=== PATIENT | female | born 1980 | race Caucasian/White ===

== ENCOUNTER 2016-04-04 09:39 | Outpatient (CLI) | payer OTHER, MEDICAID ==
[2016-04-04] MEDS ORDERED: SINCALIDE IV ONE (10:58)
[2016-04-04] MEDS ORDERED: SODIUM CHLORIDE 0.9% IV ONE (10:58)
== END 2016-04-04 09:40 | disposition home or self-care (01) ==
DX: R10.11 Right upper quadrant pain (principal)
CPT/HCPCS: 78227; A9537

== ENCOUNTER 2016-04-14 05:57 | Day surgery (SDC) | payer OTHER, MEDICAID ==
[2016-04-14] MEDS ORDERED: LACTATED RINGERS 1,000 ML IV ONE ×3 (07:08→09:30)
[2016-04-14] MEDS ORDERED: PROPOFOL 200 MG/20 ML VIAL IVP ONE (07:45)
[2016-04-14] MEDS ORDERED: PHENYLEPHRINE 50 MG/5 ML VIAL IV ONE (07:45)
[2016-04-14] MEDS ORDERED: DEXAMETHASONE 4 MG/ML VIAL IVP ONE (07:45)
[2016-04-14] MEDS ORDERED: LIDOCAINE-PF 2% 10 ML AMP SUBQ ONE (07:45)
[2016-04-14] MEDS ORDERED: SUCCINYLCHOLINE 200 MG/10 ML VIAL IVP ONE (07:45)
[2016-04-14] MEDS ORDERED: ONDANSETRON 4 MG/2 ML VIAL IVP ONE (07:45)
[2016-04-14] MEDS ORDERED: fentaNYL 100 MCG/2 ML VIAL IVP ONE (07:45)
[2016-04-14] MEDS ORDERED: GLYCOPYRROLATE 1 MG/5 ML VIAL IVP ONE (07:45)
[2016-04-14] MEDS ORDERED: NEOSTIGMINE 1 MG/1 ML 10 ML MDV IVP ONE (07:45)
[2016-04-14] MEDS ORDERED: MIDAZOLAM 2 MG/2 ML VIAL IVP ONE (07:45)
[2016-04-14] MEDS ORDERED: ROCURONIUM 50 MG/5 ML VIAL IVP ONE (07:45)
[2016-04-14] MEDS ORDERED: LIDOCAINE 1%-EPI 1:100000 20 ML MDV SUBQ ONE (07:51)
[2016-04-14] MEDS ORDERED: BUPIVACAINE 0.25%-EPI 1:200000 PF 30 ML VIAL SUBQ ONE (07:51)
[2016-04-14] MEDS: fentaNYL 100 MCG/2 ML VIAL ONE ×3 (09:02→09:24)
[2016-04-14] MEDS ORDERED: HYDROmorphone 1 MG/ML SYRINGE ONE (09:10)
[2016-04-14] MEDS ORDERED: oxyCOD/ACETAMIN 5 MG/325 MG TABLET PO ONE ×2 (09:56→10:24)
[2016-04-14] MEDS ORDERED: ONDANSETRON 4 MG/2 ML VIAL ONE (10:42)
== END 2016-04-14 05:58 | disposition home or self-care (01) ==
PROC: 0FT44ZZ Resection of Gallbladder, Percutaneous Endoscopic Approach (ICD-10-PCS; principal; 2016-04-14 07:30)
DX: K82.4 Cholesterolosis of gallbladder (principal); K81.1 Chronic cholecystitis; Z88.5 Allergy status to narcotic agent; F17.200 Nicotine dependence, unspecified, uncomplicated; F32.9 Major depressive disorder, single episode, unspecified
CPT/HCPCS: 47562; 81025; A9270; J7120

== ENCOUNTER 2016-05-29 15:24 | Emergency (ER) | payer OTHER, MEDICAID | END 2016-05-29 16:32 | disposition home or self-care (01) | DX: S61.200A Unspecified open wound of right index finger without damage to nail, initial encounter (principal); W26.0XXA Contact with knife, initial encounter; Y93.G1 Activity, food preparation and clean up; Y99.0 Civilian activity done for income or pay; I10 Essential (primary) hypertension; J45.909 Unspecified asthma, uncomplicated; K21.9 Gastro-esophageal reflux disease without esophagitis ==

== ENCOUNTER 2016-06-03 20:28 | Emergency (ER) | payer OTHER, MEDICAID ==
[2016-06-03 21:00] LABS: UA w/ MICROSCOPIC CHARGE YES
[2016-06-03 21:01] LABS: BILIRUBIN,URINE NEGATIVE (NEGATIVE)
[2016-06-03 21:07] LABS: WBC,URINE 0-3 /HPF (0-5)
[2016-06-03 21:08] LABS: UR CULTURE IF IND INDICATED
[2016-06-03] MEDS ORDERED: ONDANSETRON ODT 4 MG TABLET ONE (21:16)
[2016-06-03] MEDS ORDERED: KETOROLAC 60 MG/2 ML VIAL ONE (21:17)
[2016-06-03] MEDS: ONDANSETRON ODT 4 MG TABLET TL STA (21:19)
[2016-06-03] MEDS: KETOROLAC 60 MG/2 ML VIAL IM STA (21:19)
--- NOTE | 2016-06-03 21:45 | ED Physician Documentation ---
PD HPI FEMALE - Stated complaint Stated Complaint: FEMALE - Chief complaint Chief Complaint: Abd Pain - History obtained from History obtained from: Patient - History of Present Illness Timing - onset: How many hours ago (2) Timing - duration: Hours (2) Timing - details: Abrupt onset Pain level max: 10 Pain level max: 10 Associated symptoms: Pelvic pain. No: Fever, Chest/shoulder pain, Abdominal pain, Back pain, Vaginal pain, Vaginal bleeding, Vaginal discharge, Genital sore /lesion, Dysuria Contributing factors: IUD. No: Similar symptoms before: Has not had sx before Recently seen: Not recently seen - Additional information Additional information: Patient states that she would like her IUD removed as she feels this is causing her pain Review of Systems Constitutional: denies: Fever, Chills Nose: denies: Rhinorrhea / runny nose, Congestion Respiratory: denies: Cough GI: reports: Vomiting (Patient states she thew up secondary to pain). 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 - Present Medications Home Medications: Ambulatory Orders Medication Instructions Recorded Confirmed Bupropion HCl [Wellbutrin] 100 mg ORAL BID 11/09/13 06/03/16 Fexofenadine [Sofia] 180 mg ORAL DAILY 11/09/13 06/03/16 Valacyclovir HCl [Valtrex] 500 mg ORAL DAILY 11/09/13 06/03/16 busPIRone [Buspar] 10 mg PO TID 04/08/14 06/03/16 Omeprazole 30 mg PO DAILY 01/26/15 06/03/16 Ondansetron Odt [Zofran] 4 mg TL Q6H PRN #10 tablet 06/03/16 Oxycodone HCl/Acetaminophen 1 - 2 each PO Q6H PRN #10 tablet 06/03/16 [Percocet 5-325 mg Tablet] - Allergies Allergies/Adverse Reactions: Allergies Allergy/AdvReac Type Severity Reaction Status Date / Time acetaminophen [From Vicodin] Allergy Itching Verified 06/03/16 20:38 hydrocodone bitartrate * Allergy Itching Verified 06/03/16 20:38 [From Vicodin] tramadol Allergy Itching Verified 06/03/16 20:38 - Social History Does the pt smoke?: No Smoking Status: Never smoker Does the pt drink ETOH?: Yes Does the pt have substance abuse?: No - Immunizations Immunizations are current?: No Immunizations: TDAP current <10years - POLST Patient has POLST: No PD ED PE NORMAL - Vitals Vital signs reviewed: Yes - General General: Alert and oriented X 3, No acute distress, Well developed/nourished - HEENT HEENT: Moist mucous membranes - Neck Neck: Supple, no meningeal sign - Cardiac Cardiac: RRR, Strong equal pulses - Respiratory Respiratory: No respiratory distress, Clear bilaterally - Abdomen Abdomen: Soft, Non tender, Non distended - Female Female : 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 Cervix visible. No acute abnormalities.) - Back Back: No spinal TTP - Derm Derm: Warm and dry, No rash - Neuro Neuro: Alert and oriented X 3 - Psych Psych: Normal mood, Normal affect Results - Vitals Vitals: Vital Signs - 24 hr 06/03/16 06/03/16 06/03/16 20:34 22:28 23:41 Temperature 36.8 C Heart Rate 106 H 83 117 H Respiratory 24 19 18 Rate Blood Pressure 159/113 H 120/69 138/85 H O2 Saturation 96 98 100 Oxygen O2 Source Room air - Labs Labs: Laboratory Tests 06/03/16 20:46 Urine Color DARK YELLOW Urine Clarity CLEAR Urine pH 5.0 Ur Specific [place] 1.025 Urine Protein TRACE Urine Glucose (UA) NEGATIVE Urine Ketones TRACE Urine Occult Blood NEGATIVE Urine Nitrite POSITIVE H Urine Bilirubin NEGATIVE Urine Urobilinogen 1 (NORMAL) Ur Leukocyte Esterase NEGATIVE Urine RBC None Seen Urine WBC 0-3 Ur Squamous Epith Cells RARE Squamous Urine Bacteria None Seen Urine Casts 0-2 Hyaline Casts Ur Microscopic Review INDICATED Urine Culture Comments INDICATED - Rads (name of study) pelvic US Radiology: Prelim report reviewed, EMP read contemporaneously, See rad report ( IUD in appropriate position. Unremarkable premenopausal sonographic appearance of the ovaries. ) PD MEDICAL DECISION MAKING - ED course Complexity details: reviewed results, re-evaluated patient, considered differential, d/w patient, d/w family ED course: Patient is a 35-year-old female who presents to the emergency department with pelvic cramping and pain. Pain improved here with Toradol and Percocet. Was unable to visualize the IUD string on pelvic exam. Cervix was well visualized. Therefore I discussed the case with Dr. Mckeon and obtained an ultrasound for placement. Discussed with Dr. Mckeon, gynecology, and will follow up in the office. Patient counseled regarding signs and symptoms for which I believe and urgent re-evaluation would be necessary. Patient with good understanding of and agreement to plan and is comfortable going home at this time This document was made in part using voice recognition software. While efforts are made to proofread this document, sound alike and grammatical errors may occur. Patient does have nitrites on urinalysis, but no bacteria. Will hold off on treating this at this time. Patient denies any change in sexual partners. Pain well controlled. Departure - Departure Disposition: 01 Home, Self Care Clinical Impression: Pelvic pain Condition: Good Instructions: ED Pelvic Pain [facility] Follow-Up: Agnieszka Mckeon DO [Provider Admit Priv/Credential] - Within 3 Days Prescriptions: Oxycodone HCl/Acetaminophen [Percocet 5-325 mg Tablet] 1 - 2 each PO Q6H PRN # 10 tablet PRN Reason: pain Ondansetron Odt [Zofran] 4 mg TL Q6H PRN #10 tablet PRN Reason: Nausea / Vomiting Comments: Return if you worsen. The cause of your symptoms is unclear. Follow-up with Dr. Mckeon for further evaluation and care. Do not drink alcohol or drive while on narcotic pain medicine. Note that many narcotic pain relievers also contain tylenol/acetaminophen. Please ensure that your total dose of acetaminophen from all sources does not exceed 3 grams (3000mg) per day. You may constipated on this medication, take a stool softener such as "Colace" twice a day while you are on it. Also recommend a xukq-qdk-xnfolam laxative such as senna or MiraLAX any day that you do not have a bowel movement. If you received narcotic pain medication in the emergency department, do not drive or operate machinery for the next 24 hours. Discharge Date/Time: 06/03/16 23:48
[2016-06-03] MEDS ORDERED: HYDROmorphone 1 MG/ML SYRINGE ONE (21:50)
[2016-06-03] MEDS: HYDROmorphone 1 MG/ML SYRINGE IM STA (21:52)
[2016-06-03] MEDS ORDERED: oxyCOD/ACETAMIN 5 MG/325 MG TABLET PO ONE (23:37)
[2016-06-03] MEDS: oxyCOD/ACETAMIN 5 MG/325 MG TABLET PO STA (23:39)
[2016-06-03 23:42] VITALS: BP 138/85
--- NOTE | 2016-06-03 23:46 | Ultrasound Preliminary Report ---
Exam: US Pelvic w/Transvaginal IMPRESSION: 1. IUD in appropriate position. 2. Unremarkable premenopausal sonographic appearance of the ovaries. [facility]
--- NOTE | 2016-06-03 23:49 | Ultrasound Report ---
EXAM: PELVIC ULTRASOUND EXAM DATE: 06/03/2016 11:18 PM. CLINICAL HISTORY: Pelvic pain. Possible IUD malposition. COMPARISON: None. TECHNIQUE: Realtime transabdominal pelvic scan performed to identify the uterus and adnexa and as an overview of other pelvic structures, followed by transvaginal scan to provide greater detail of the u terus and adnexa, with static image documentation. FINDINGS: Uterus: Anteverted position. 8.8 x 3.8 x 5.0 cm, volume 89 cc. Homogeneous myometrial echotexture. Endometrium: 3 mm. IUD centrally positioned in the endometrial canal with the arms at the fundus. Cervix: Unremarkable. Right Ovary: 3.4 x 2.7 x 3.1 cm, volume 15.0 cc. Normal echotexture. Blood flow is present. Contains normal follicles, including a 1.8 cm dominant follicle. Left Ovary: 2.4 x 1.5 x 1.6 cm, volume 2.9 cc. Normal echotexture. Blood flow is present. Contains no rmal follicles. Free Fluid: None. Other: None. IMPRESSION: 1. IUD in appropriate position. 2. Unremarkable premenopausal sonographic appearance of the ovaries. [facility] Referring Provider Line: [phone]
== END 2016-06-03 23:48 | disposition home or self-care (01) ==
LOC: ED 20:28
DX: R10.2 Pelvic and perineal pain (principal); Z97.5 Presence of (intrauterine) contraceptive device; I10 Essential (primary) hypertension; J45.909 Unspecified asthma, uncomplicated; K21.9 Gastro-esophageal reflux disease without esophagitis
CPT/HCPCS: 76830; 76856; 81001; 81003; 81025; 87086; 96372; 99283; 99284

== ENCOUNTER 2016-06-14 10:27 | Day surgery (SDC) | payer OTHER, MEDICAID ==
[2016-06-14] MEDS ORDERED: LACTATED RINGERS 1,000 ML IV ONE (10:53)
[2016-06-14] MEDS ORDERED: SCOPOLAMINE PATCH TOP ONE (12:02)
[2016-06-14] MEDS ORDERED: PROPOFOL 200 MG/20 ML VIAL IVP ONE (12:30)
[2016-06-14] MEDS ORDERED: ONDANSETRON 4 MG/2 ML VIAL IVP ONE (12:30)
[2016-06-14] MEDS ORDERED: fentaNYL 100 MCG/2 ML VIAL IVP ONE (12:30)
[2016-06-14] MEDS ORDERED: DEXAMETHASONE 4 MG/ML VIAL IVP ONE (12:30)
[2016-06-14] MEDS ORDERED: MIDAZOLAM 2 MG/2 ML VIAL IVP ONE (12:30)
[2016-06-14] MEDS ORDERED: LIDOCAINE-PF 2% 10 ML AMP SUBQ ONE (12:30)
[2016-06-14] MEDS ORDERED: fentaNYL 100 MCG/2 ML VIAL ONE (12:51)
== END 2016-06-14 10:28 | disposition home or self-care (01) ==
PROC: 0UPD7HZ Removal of Contraceptive Device from Uterus and Cervix, Via Natural or Artificial Opening (ICD-10-PCS; principal; 2016-06-14 11:30)
DX: Z30.432 Encounter for removal of intrauterine contraceptive device (principal); I10 Essential (primary) hypertension; F32.9 Major depressive disorder, single episode, unspecified; F41.9 Anxiety disorder, unspecified; J45.990 Exercise induced bronchospasm; Z87.891 Personal history of nicotine dependence; Z88.5 Allergy status to narcotic agent; Z90.49 Acquired absence of other specified parts of digestive tract
CPT/HCPCS: 58301; 81025; J3490; J7120

== ENCOUNTER 2016-10-27 13:00 | Outpatient (CLI) | payer OTHER, MEDICAID ==
[2016-10-27 19:04] LABS: BILIRUBIN,URINE NEGATIVE (NEGATIVE)
[2016-10-27 19:24] LABS: UR CULTURE IF IND NOT INDICATED; WBC,URINE 0-3 /HPF (0-5)
== END 2016-10-27 13:01 | disposition home or self-care (01) ==
LOC: LAB.N 13:00
PROVIDERS: ATTEND Family Medicine
DX: N39.0 Urinary tract infection, site not specified (principal)
CPT/HCPCS: 81001; 87086

== ENCOUNTER 2017-01-05 12:29 | Emergency (ER) | payer OTHER, MEDICAID ==
[2017-01-05 12:41] VITALS: BP 157/96
[2017-01-05] MEDS ORDERED: ONDANSETRON ODT 4 MG TABLET TL STA (14:10)
--- NOTE | 2017-01-05 14:16 | ED Physician Documentation ---
History of Present Illness - Stated complaint Stated Complaint: WEAKNESS,DIZZINESS,BLURRED VISION - Chief complaint Chief Complaint: General - History obtained from History obtained from: Patient, Friend - History of Present Illness Timing: How many weeks ago (1) Pain level max: 4 Pain level now: 2 Improved by: rest Worsened by: walking - Additonal information Additional information: Patient is a 36-year-old female presents to the emergency department with weakness fatigue, sore throat, subjective fevers, body aches, nausea for the past week. States her boyfriend also has mononucleosis. Denies any vomiting. no chance of . intermittent abdominal cramps Review of Systems Ten Systems: 10 systems reviewed and negative Constitutional: reports: Myalgias Nose: denies: Rhinorrhea / runny nose, Congestion GI: reports: Nausea. 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 HEENT:  Derm: Other - Present Medications Home Medications: Ambulatory Orders Medication Instructions Recorded Confirmed Bupropion HCl [Wellbutrin] 100 mg ORAL BID 11/09/13 06/14/16 Fexofenadine [Sofia] 180 mg ORAL DAILY 11/09/13 06/14/16 Valacyclovir HCl [Valtrex] 500 mg ORAL DAILY 11/09/13 06/14/16 busPIRone [Buspar] 10 mg PO TID 04/08/14 06/14/16 Omeprazole 30 mg PO DAILY 01/26/15 06/14/16 Ondansetron Odt [Zofran] 4 mg TL Q6H PRN #10 tablet 06/03/16 06/14/16 Oxycodone HCl/Acetaminophen 1 - 2 each PO Q6H PRN #10 tablet 06/03/16 06/14/16 [Percocet 5-325 mg Tablet] Albuterol 1 puffs INH ONCE 06/09/16 06/14/16 Ondansetron Odt [Zofran] 4 mg TL Q6H PRN #10 tablet 01/05/17 - Allergies Allergies/Adverse Reactions: Allergies Allergy/AdvReac Type Severity Reaction Status Date / Time hydrocodone bitartrate * Allergy Itching Verified 01/05/17 12:35 [From Vicodin] tramadol Allergy Itching Verified 01/05/17 12:35 - Social History Does the pt smoke?: No Smoking Status: Never smoker Does the pt drink ETOH?: Yes Does the pt have substance abuse?: No - Immunizations Immunizations are current?: No Immunizations: TDAP current <10years - POLST Patient has POLST: No PD ED PE NORMAL - Vitals Vital signs reviewed: Yes (O2 sat is 97 on RA not 74) - General General: Alert and oriented X 3, No acute distress - HEENT HEENT: Moist mucous membranes - Neck Neck: Supple, no meningeal sign - Cardiac Cardiac: RRR - Respiratory Respiratory: No respiratory distress, Clear bilaterally - Abdomen Abdomen: Normal bowel sounds, Soft, Non tender, Non distended, No organomegaly - Back Back: No CVA TTP - Derm Derm: Warm and dry, No rash - Neuro Neuro: Alert and oriented X 3 - Psych Psych: Normal mood, Normal affect Results - Vitals Vitals: Vital Signs - 24 hr 01/05/17 01/05/17 12:33 14:14 Temperature 36 C L Heart Rate 81 Respiratory 20 Rate Blood Pressure 157/96 H O2 Saturation 74 L 97 Oxygen O2 Source Room air PD MEDICAL DECISION MAKING - ED course Complexity details: considered differential, d/w patient, d/w family ED course: Patient is a 36-year-old female who presents to the emergency department with symptoms consistent with mononucleosis. Her boyfriend has been diagnosed with same. No organomegaly on exam. She is well-appearing, nontoxic. Afebrile. Will write a note for work as well as Zofran for home. Patient is on control and the possibility of . Patient declines any blood work or further testing at this time. Patient counseled regarding signs and symptoms for which I believe and urgent re-evaluation would be necessary. Patient with good understanding of and agreement to plan and is comfortable going home at this time This document was made in part using voice recognition software. While efforts are made to proofread this document, sound alike and grammatical errors may occur. Departure - Departure Disposition: 01 Home, Self Care Clinical Impression: Mononucleosis Condition: Good Instructions: ED Mononucleosis Follow-Up: Jere Multani PA-C [Primary Care Provider] - Within 1 week Prescriptions: Ondansetron Odt [Zofran] 4 mg TL Q6H PRN #10 tablet PRN Reason: Nausea / Vomiting Comments: Drink plenty of fluids and rest. this will likely last at least another week. Forms: Activity restrictions Discharge Date/Time: 01/05/17 14:19
[2017-01-05] MEDS ORDERED: ONDANSETRON ODT 4 MG TABLET ONE (14:21)
== END 2017-01-05 14:19 | disposition home or self-care (01) ==
LOC: ED 12:29
DX: B27.90 Infectious mononucleosis, unspecified without complication (principal)
CPT/HCPCS: 99283; Q0162

== ENCOUNTER 2017-03-09 16:34 | Outpatient (CLI) | payer OTHER, MEDICAID ==
--- NOTE | 2017-03-10 02:04 | Ultrasound Report ---
EXAM: PELVIC ULTRASOUND EXAM DATE: 03/09/2017 06:07 PM. CLINICAL HISTORY: HYPERTROPHY OF UTERUS. COMPARISON: 06/03/2016. TECHNIQUE: Realtime transabdominal pelvic scan performed to identify the uterus and adnexa and as an overview of other pelvic structures, followed by transvaginal scan to provide greater detail of the u terus and adnexa, with static image documentation. FINDINGS: LMP: 02/21/2017 Uterus: Uterus is normal in position and normal in configuration. Uterus measures 10.4 x 5.0 x 4.2 c m. No evident uterine masses. Endometrium: Endometrium measures 2.7 mm. No suspicious thickening or vascularity. Previous noted IUD is no longer identified. Cervix: No suspicious lesion. Right Ovary: Normal in appearance measuring 2.6 x 2.6 x 1.7 cm. Normal blood flow. Left Ovary: Normal in appearance measuring 3.5 x 2.1 x 1.7 cm. Normal blood flow. Fluid: No signficant free fluid. Other: No other significant findings. IMPRESSION: Normal sonographic appearance of the pelvis. [facility] Referring Provider Line: [phone] SITE ID: [id number]
== END 2017-03-09 16:35 | disposition home or self-care (01) ==
LOC: DI 16:34
PROVIDERS: ATTEND Obstetrics & Gynecology
DX: N85.2 Hypertrophy of uterus (principal)
CPT/HCPCS: 76830; 76856

== ENCOUNTER 2017-07-21 15:24 | Emergency (ER) | payer OTHER, MEDICAID ==
[2017-07-21] MEDS ORDERED: DEXAMETHASONE 10 MG/ML VIAL PO STA (15:32)
[2017-07-21] MEDS ORDERED: FAMOTIDINE 20 MG TABLET PO STA (15:32)
[2017-07-21] MEDS ORDERED: diphenhydrAMINE 25 MG CAPSULE PO STA (15:32)
[2017-07-21] MEDS ORDERED: EPINEPHrine 1 MG/ML AMP IM STA (15:36)
[2017-07-21] MEDS ORDERED: SODIUM CHLORIDE 0.9% 1,000 ML IV ONE (15:37)
--- NOTE | 2017-07-21 15:39 | ED Physician Documentation ---
History of Present Illness - Stated complaint Stated Complaint: FACE SWELLING/SOA - Chief complaint Chief Complaint: Allergic Rx - Additonal information Additional information: hx from pt 36 f denies preg ate seafood less than 1 hr ago now with facial and tongue swelling and some hives to her face Review of Systems Constitutional: denies: Fever Throat: reports: Other (swollen tongue) Cardiac: denies: Chest pain / pressure Respiratory: reports: Dyspnea PD PAST MEDICAL HISTORY - Past Medical History Cardiovascular: None Respiratory: Asthma Endocrine/Autoimmune: None GI: Cholelithiasis : None HEENT: None Psych: Depression, Anxiety Musculoskeletal: Chronic back pain Derm: None - Past Surgical History Past Surgical History: Yes 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 HEENT:  Derm: Other - Present Medications Home Medications: Ambulatory Orders Medication Instructions Recorded Confirmed Bupropion HCl [Wellbutrin] 100 mg ORAL BID 11/09/13 06/14/16 Fexofenadine [Sofia] 180 mg ORAL DAILY 11/09/13 06/14/16 Valacyclovir HCl [Valtrex] 500 mg ORAL DAILY 11/09/13 06/14/16 busPIRone [Buspar] 10 mg PO TID 04/08/14 06/14/16 Omeprazole 30 mg PO DAILY 01/26/15 06/14/16 Ondansetron Odt [Zofran] 4 mg TL Q6H PRN #10 tablet 06/03/16 06/14/16 Oxycodone HCl/Acetaminophen 1 - 2 each PO Q6H PRN #10 tablet 06/03/16 06/14/16 [Percocet 5-325 mg Tablet] Albuterol 1 puffs INH ONCE 06/09/16 06/14/16 Ondansetron Odt [Zofran] 4 mg TL Q6H PRN #10 tablet 01/05/17 Epinephrine [Epipen 2-Mynor] 0.3 mg IJ ONCE PRN #2 unit 07/21/17 diphenhydrAMINE [Benadryl] 25 mg PO Q8H #9 capsule 07/21/17 predniSONE [Deltasone] 60 mg PO DAILY 3 Days tablet 07/21/17 raNITIdine [Zantac] 150 mg PO BID #6 tablet 07/21/17 - Allergies Allergies/Adverse Reactions: Allergies Allergy/AdvReac Type Severity Reaction Status Date / Time hydrocodone bitartrate * Allergy Itching Verified 01/05/17 12:35 [From Vicodin] tramadol Allergy Itching Verified 01/05/17 12:35 - Social History Does the pt smoke?: No Smoking Status: Never smoker Does the pt drink ETOH?: Yes Does the pt have substance abuse?: No - Immunizations Immunizations are current?: No Immunizations: TDAP current <10years - POLST Patient has POLST: No PD ED PE NORMAL - Vitals Vital signs reviewed: Yes - HEENT HEENT: PERRL, Dentition benign (L left sided tongue swelling) - Neck Neck: Supple, no meningeal sign - Cardiac Cardiac: RRR - Respiratory Respiratory: No respiratory distress, Clear bilaterally, Other (no wheeze) - Abdomen Abdomen: Soft, Non tender - Derm Derm: Other (urticaria to the face) Results - Vitals Vitals: Vital Signs - 24 hr 07/21/17 07/21/17 07/21/17 15:28 16:04 16:28 Temperature 36.4 C L 36.8 C Heart Rate 80 73 82 Respiratory 18 18 18 Rate Blood Pressure 152/91 H 134/82 H 141/98 H O2 Saturation 98 98 98 07/21/17 17:16 Temperature Heart Rate 80 Respiratory 18 Rate Blood Pressure 129/90 H O2 Saturation 98 Oxygen O2 Source Room air PD MEDICAL DECISION MAKING - ED course ED course: observed several hr s/p epi pt sig better no more face swelling, tongue sx resolved, doing well Departure - Departure Disposition: 01 Home, Self Care Clinical Impression: Anaphylactic reaction Qualifiers: Encounter type: initial encounter Qualified Code(s): T78.2XXA - Anaphylactic shock, unspecified, initial encounter Condition: Fair Instructions: EpiPen Auto Injector Dc, ED Anaphylaxis General Prescriptions: diphenhydrAMINE [Benadryl] 25 mg PO Q8H #9 capsule Epinephrine [Epipen 2-Mynor] 0.3 mg IJ ONCE PRN #2 unit PRN Reason: Anaphylaxis predniSONE [Deltasone] 60 mg PO DAILY 3 Days tablet raNITIdine [Zantac] 150 mg PO BID #6 tablet Comments: Take the benadryl, zantac and prednisone for the next three days to prevent recurrent symptoms Avoid all seafood and shellfish - you will need to read ingredients very carefully as many sauces etc contains seafood. Ask your PMD for a referral to be tested by an ceramic research engineer Always carry your epi pen with you just in case
[2017-07-21] MEDS ORDERED: CHERRY SYRUP 10 ML UDC PO ONE (15:48)
[2017-07-21] MEDS ORDERED: EPINEPHrine 1 MG/ML AMP ONE (15:49)
[2017-07-21 17:17] VITALS: BP 129/90
== END 2017-07-21 17:53 | disposition home or self-care (01) ==
LOC: ED 15:24
DX: T78.2XXA Anaphylactic shock, unspecified, initial encounter (principal)
CPT/HCPCS: 96360; 96372; 99283; 99284; A9270

== ENCOUNTER 2018-03-22 14:05 | Outpatient (CLI) | payer OTHER, MEDICAID ==
[2018-03-22 19:39] LABS: THYROID STIMULATING HORMONE 1.24 uIU/mL (0.34-5.60)
[2018-03-22 19:44] LABS: PROLACTIN 5.84 ng/mL
== END 2018-03-22 23:59 | disposition home or self-care (01) ==
LOC: LAB.N 14:05
DX: N91.2 Amenorrhea, unspecified (principal); R53.83 Other fatigue
CPT/HCPCS: 36415; 84146; 84403; 84443; 84702

== ENCOUNTER 2018-04-03 20:34 | Outpatient (CLI) | payer OTHER, MEDICAID ==
--- NOTE | 2018-04-04 17:31 | Ultrasound Report ---
Reason: PELVIC PAIN,ACUTE Procedure Date: 04/03/2018 Accession Number: [id number] / [id number] Procedure: US - Pelvic w/Transvaginal CPT Code: FULL RESULT: EXAM: PELVIC ULTRASOUND EXAM DATE: 04/03/2018 09:24 PM. CLINICAL HISTORY: PELVIC PAIN,ACUTE. Irregular menses. History of section. LMP 04/03/2018 COMPARISON: 03/09/2017 and 06/03/2016 ultrasound. TECHNIQUE: Realtime transabdominal pelvic scan performed to identify the uterus and adnexa and as an overview of other pelvic structures, followed by transvaginal scan to provide greater detail of the uterus and adnexa, with static image documentation. FINDINGS: Exam limited by patient body habitus and overlying bowel gas. Uterus: 10.3 x 5.4 x 5.1 cm, volume 147 cc. Anteverted position. Normal overall size and echotexture. Masses: 1.4 x 1.1 x 1.7 cm anterior lower uterine segment fibroid. Right lateral 0.6 cm in diameter intramural fibroid. Endometrium: 5 mm. Normal. Cervix: Unremarkable. Right Ovary: 3.4 x 2.7 x 2.9 cm, volume 13.5 cc. Normal echotexture and blood flow. Multiple follicles. Left Ovary: 2.7 x 1.4 x 2.6 cm, volume 5.2 cc. Normal echotexture and blood flow. Multiple follicles. Free Fluid: None. Other: If adenomyosis is a clinical consideration, MRI may be useful. IMPRESSION: Minor myomatous changes of the uterus. No obvious explanation for pelvic pain is identified. [facility]
== END 2018-04-03 20:35 | disposition home or self-care (01) ==
LOC: DI 20:34
PROVIDERS: ATTEND Family Medicine
DX: R10.2 Pelvic and perineal pain (principal)
CPT/HCPCS: 76830; 76856

== ENCOUNTER 2018-04-17 12:39 | Outpatient (CLI) | payer OTHER, MEDICAID ==
--- NOTE | 2018-04-17 16:22 | Mammography Report ---
Reason: BREAST LUMP OR MASS Procedure Date: 04/17/2018 Accession Number: [id number] / [id number] Procedure: KRYSTYNA - Diagnostic Dig Bilat CPT Code: FULL RESULT: EXAM: Diagnostic Dig Bilat DATE: 04/17/2018 1:17 PM CLINICAL HISTORY: Sharp lateral breast pain, greater on the left and exacerbated when breathing. Diagnostic mammogram. History of early menses. TECHNIQUE: CC and MLO views as well as bilateral MLO views are obtained. COMPARISON: None FINDINGS: The breasts demonstrate heterogeneously dense fibroglandular parenchyma bilaterally. No suspicious masses, architectural distortion or calcifications are identified. IMPRESSION: Negative examination RECOMMENDATION: Recommend routine annual Screening mammography starting at the age of 40 unless otherwise clinically indicated. BIRADS CATEGORY 1: Negative STANDARD QUALIFYING STATEMENTS: 1. This examination was not reviewed with the aid of Computer-Aided Detection (CAD). 2. A negative or benign imaging report should not delay biopsy if clinically suspicious findings are present. Consider surgical consultation if warrented. More than 5% of cancers are not identified by imaging. 3. Dense breasts may obscure an underlying neoplasm. 4. This examination was reviewed with the aid of 3D imaging (tomography).
== END 2018-04-17 12:40 | disposition home or self-care (01) ==
LOC: DI 12:39
PROVIDERS: ATTEND Family Medicine
DX: N63.0 Unspecified lump in unspecified breast (principal)
CPT/HCPCS: 77066

== ENCOUNTER 2019-03-24 11:21 | Outpatient (CLI) | payer MEDICAID, OTHER | END 2019-03-24 23:59 | disposition home or self-care (01) | LOC: LAB.R 11:21 | PROVIDERS: ATTEND Physician Assistant Medical | DX: J02.9 Acute pharyngitis, unspecified (principal) | CPT/HCPCS: 87070 ==

== ENCOUNTER 2019-11-24 14:57 | Outpatient (CLI) | payer OTHER, MEDICAID ==
[2019-11-24 18:09] LABS: BASOPHILS # (AUTO) 0.1 10^3/uL (0.0-0.1); BASOPHILS % (AUTO) 0.6 %; EOSINOPHILS # (AUTO) 0.4 10^3/uL (0.0-0.7); EOSINOPHILS % (AUTO) 2.9 %; HGB - HEMOGLOBIN 14.2 g/dL (12.0-16.0); LYMPHOCYTES # (AUTO) 2.6 10^3/uL (1.5-3.5); LYMPHOCYTES % (AUTO) 22.1 %; MEAN CORPUSCULAR HEMOGLOBIN 28.5 pg (27.0-31.0); MEAN CORPUSCULAR HGB CONC 32.2 g/dL (32.0-36.0); MEAN CORPUSCULAR VOLUME 88.6 fL (81.0-99.0); MEAN PLATELET VOLUME 10.4 fL (7.9-10.8); MONOCYTES # (AUTO) 0.8 10^3/uL (0.0-1.0); NEUTROPHILS % (AUTO) 66.7 %; PLT - PLATELET COUNT 383 10^3/uL (130-450); RED BLOOD COUNT 4.98 10^6/uL (4.20-5.40); RED CELL DISTRIBUTION WIDTH 14.1 % (12.0-15.0); WHITE BLOOD COUNT 11.9 x10^3/uL (4.8-10.8)
[2019-11-24 18:40] LABS: ALBUMIN 4.9 g/dL (3.2-5.5); ALBUMIN/GLOBULIN RATIO 1.3 (1.0-2.2); ALKALINE PHOSPHATASE 46 IU/L (42-121); ALT ALANINE AMINOTRANSFERASE 14 IU/L (10-60); AST ASPARTATE AMINOTRANSFERASE 11 IU/L (10-42); BILIRUBIN,TOTAL 0.9 mg/dL (0.2-1.0); BUN - BLOOD UREA NITROGEN 12 mg/dL (6-20); CALCIUM 10.4 mg/dL (8.5-10.3); CARBON DIOXIDE - CO2 26 mmol/L (21-32); CHLORIDE 102 mmol/L (101-111); CHOL/HDL RATIO 2.7 (<4.4); CHOLESTEROL 216 mg/dL; CREATININE 0.8 mg/dL (0.4-1.0); GLUCOSE 99 mg/dL (70-100); HDL CHOLESTEROL 79 mg/dL; LDL CHOLESTEROL,CALCULATED 119 mg/dL; LDL/HDL RATIO 1.5 (<4.4); SODIUM 136 mmol/L (135-145); TOTAL PROTEIN 8.6 g/dL (6.7-8.2); VLDL CHOLESTEROL 18 mg/dL
[2019-11-24 21:52] LABS: HEMOGLOBIN A1c% 5.5 % (4.27-6.07)
== END 2019-11-24 23:59 | disposition home or self-care (01) ==
LOC: LAB.WCP 14:57
PROVIDERS: ATTEND Physician Assistant
DX: I10 Essential (primary) hypertension (principal); Z83.3 Family history of diabetes mellitus; Z13.220 Encounter for screening for lipoid disorders; R53.83 Other fatigue
CPT/HCPCS: 36415; 80050; 80061; 83036; 83721

== ENCOUNTER 2019-12-02 08:31 | Outpatient (CLI) | payer OTHER, MEDICAID ==
[2019-12-02 13:19] LABS: ALBUMIN 4.4 g/dL (3.2-5.5); ALBUMIN/GLOBULIN RATIO 1.3 (1.0-2.2); BILIRUBIN,TOTAL 0.5 mg/dL (0.2-1.0); CALCIUM 8.8 mg/dL (8.5-10.3); CREATININE 0.7 mg/dL (0.4-1.0); TOTAL PROTEIN 7.7 g/dL (6.7-8.2)
== END 2019-12-02 23:59 | disposition home or self-care (01) ==
LOC: LAB.WCP 08:31
PROVIDERS: ATTEND Physician Assistant
DX: E83.52 Hypercalcemia (principal)
CPT/HCPCS: 36415; 80053

== ENCOUNTER 2020-01-01 12:50 | Outpatient (CLI) | payer OTHER, MEDICAID ==
--- NOTE | 2020-01-01 15:41 | CARDIAC PROCEDURE NOTE ---
DATE OF SERVICE: 01/01/2020 Physician: Marilyn Kam MD, [facility] INDICATION: Chest pain. CARDIAC RISK FACTORS: Hypertension, family history of early heart disease (aunt in her 40s and also a grandfather). DESCRIPTION OF PROCEDURE: After signing informed consent, the patient underwent a Maulik-protocol treadmill stress test. No cardiac imaging was ordered with this test. RESTING HEART RATE: 70. PEAK HEART RATE: 169 (93% predicted maximum heart rate for age). RESTING BLOOD PRESSURE: 171/111. PEAK BLOOD PRESSURE: 228/96. The patient exercised for 7 minutes and 15 seconds on a Maulik-protocol treadmill stress test. She achieved a peak heart rate of 169 (93% PMHR) and 8.98 METS. The patient had mild shortness of breath. She experienced no chest tightness. The patient reported her perceived exertion at 14/20 at peak on the Itzel scale. Oxygen saturation was 97-98% on room air throughout the test. RESTING EKG: Normal sinus rhythm, rare PAC, otherwise within normal limits. EKG AT PEAK: No new ST segment or T-wave abnormalities develop. SUMMARY: 1. Normal resting EKG. 2. No ischemic changes by EKG criteria at a good level of stress achieved. 3. Fair exercise tolerance. 4. Poor HTN control. IMPRESSION: Normal stress test. cc: Marcella Montes PA-C TD: 01/01/2020 14:20 MTDD
== END 2020-01-01 12:51 | disposition home or self-care (01) ==
LOC: DI 12:50
PROVIDERS: ATTEND Physician Assistant
DX: R07.89 Other chest pain (principal); I10 Essential (primary) hypertension; Z82.49 Family history of ischemic heart disease and other diseases of the circulatory system
CPT/HCPCS: 93016; 93018

== ENCOUNTER 2020-01-09 12:31 | Outpatient (CLI) | payer OTHER, MEDICAID | END 2020-01-09 12:32 | disposition home or self-care (01) | LOC: LAB 12:31 | PROVIDERS: ATTEND Orthopaedic Surgery | DX: Z01.812 Encounter for preprocedural laboratory examination (principal); Z20.828 Contact with and (suspected) exposure to other viral communicable diseases; G56.01 Carpal tunnel syndrome, right upper limb ==

== ENCOUNTER 2020-01-14 07:27 | Day surgery (SDC) | payer OTHER, MEDICAID ==
[2020-01-14] MEDS ORDERED: PROPOFOL 200 MG/20 ML VIAL IVP ONE (07:28)
[2020-01-14] MEDS ORDERED: fentaNYL 100 MCG/2 ML VIAL IVP ONE (07:28)
[2020-01-14] MEDS ORDERED: MIDAZOLAM 2 MG/2 ML VIAL IVP ONE (07:28)
[2020-01-14] MEDS ORDERED: LIDOCAINE-MPF 2% 5 ML VIAL IM ONE (07:28)
[2020-01-14] MEDS ORDERED: KETAMINE 500 MG/10 ML VIAL IVP ONE (07:28)
[2020-01-14] MEDS ORDERED: LACTATED RINGERS 1,000 ML IV ONE (07:30)
[2020-01-14 07:45] LABS: HCG UR QUAL NEGATIVE
--- NOTE | 2020-01-14 07:58 | ANESTHESIA ---
Pre-Anesthesia VS, & Labs - Diagnosis R CTS - Procedure R CTR Height: 5 ft 4 in - NPO >8 hours - Is Patient ?: No - Lab Results Lab results reviewed: Yes Home Medications and Allergies Home Medications: Ambulatory Orders Losartan Potassium 50 mg PO DAILY 01/08/20 Methocarbamol [Robaxin-750] 750 mg PO TID PRN 01/08/20 Multivitamin 1 each PO DAILY 01/08/20 metFORMIN [Glucophage] 500 mg PO BIDWM 01/08/20 Valacyclovir HCl [Valtrex] 500 mg ORAL DAILY 11/09/13 Omeprazole 20 mg PO DAILY 01/26/15 Losartan Potassium 50 mg PO DAILY 01/08/20 Methocarbamol [Robaxin-750] 750 mg PO TID PRN 01/08/20 Multivitamin 1 each PO DAILY 01/08/20 metFORMIN [Glucophage] 500 mg PO BIDWM 01/08/20 Allergies/Adverse Reactions: Allergies Allergy/AdvReac Type Severity Reaction Status Date / Time ibuprofen Allergy stomach Verified 01/08/20 12:58 ulcers mussels Allergy Anaphylaxis Verified 01/08/20 12:58 tramadol Allergy Itching Verified 01/05/17 12:35 hydrocodone bitartrate * AdvReac Itching Verified 01/08/20 12:58 [From Vicodin] salmon Allergy Anaphylaxis Uncoded 01/08/20 12:58 Anes History & Medical History - Anesthetic History Anesthesia Complications: reports: No previous complications Family history of Anesthesia Complications: Denies Family history of Malignant Hyperthermia: Denies - Medical History Cardiovascular: reports: None Pulmonary: reports: Asthma Gastrointestinal: reports: GERD (controlled w meds), Cholelithiasis Urinary: reports: None Musculoskeletal: reports: Chronic back pain Endocrine/Autoimmune: reports: None Skin: reports: None Smoking Status: Never smoker Psychosocial: reports: Alcohol (social) History of Cancer?: No - Surgical History General: Cholecystectomy Eyes Ears Nose Throat (EENT):  Gynecologic: section Dermatologic: Other Exam General: Alert, Oriented x3, Cooperative Mouth Openin Fingerbreadth Neck Mobility: Normal Mallampati classification: II Thyromental Distance: greater than 6 cm Respiratory: Lungs clear, Normal breath sounds, No respiratory distress Cardiovascular: Regular rate Mental/Cognitive Status: Alert/Oriented X3, Normal for patient Cognitive Status: Within normal limits Plan Anesthesia Type: MAC Consent for Procedure(s) Verified and Reviewed: Yes Code Status: Attempt Resuscitation ASA classification: 2-Mild systemic disease Is this case an emergency?: No
[2020-01-14] MEDS ORDERED: LIDOCAINE 1%-EPI 1:100000 20 ML MDV ONE (08:04)
[2020-01-14] MEDS ORDERED: LIDOCAINE 1%-EPI 1:100000 20 ML MDV SUBQ ONE (08:27)
[2020-01-14] MEDS ORDERED: BACITRACIN ZINC OINT 1 PACKET TOP ONE (08:43)
[2020-01-14] MEDS ORDERED: fentaNYL 100 MCG/2 ML VIAL IVP PRN (09:12)
[2020-01-14] MEDS ORDERED: ePHEDrine 50 MG/ML VIAL IVP PRN (09:12)
[2020-01-14] MEDS ORDERED: ATROPINE ABBOJECT 1 MG/10 ML SYRINGE IVP PRN (09:12)
[2020-01-14] MEDS ORDERED: MORPHINE 2 MG/ML CARPUJECT IVP PRN (09:12)
[2020-01-14] MEDS ORDERED: NALOXONE 0.4 MG/ML VIAL IVP PRN (09:12)
[2020-01-14] MEDS ORDERED: ONDANSETRON 4 MG/2 ML VIAL IVP PRN (09:12)
[2020-01-14] MEDS ORDERED: METOCLOPRAMIDE 10 MG/2 ML VIAL IVP PRN (09:12)
[2020-01-14] MEDS ORDERED: ACETAMINOPHEN 1,000 MG/100 ML 100 ML IV ONE ×2 (09:12→09:19)
--- NOTE | 2020-01-14 09:13 | OPERATIVE REPORT ---
Operative Report - General Procedure Date: 01/14/20 Planned Procedure: right carpal tunnel release Pre-Op Diagnosis: right carpal tunnel syndrome Procedure Performed: right carpal tunnel release, CPT 15988 Post Op Diagnosis: Same as preoperative diagnosis - Procedure Note Primary Surgeon: Evan Lara MD Anesthesia Provider: Rosie Monte Anesthesia Technique: Local, MAC Indications: Numbness median nerve distribution right hand, chronic with positive exam clinical findings; not responding to non operative treatment Findings: median nerveAppears normal. There is nonspecific tenosynovitis over the flexor tendons. No abnormality to the carpal tunnel - Other Other Information/Narrative: Patient was brought to the operating room table, placed in a supine position with right arm over a arm extension table. A pneumatic tourniquet was applied to the proximal right arm. The right upper extremity was prepped and draped in a sterile manner in the usual fashion. A timeout procedure was performed by the entire operating room team and all were in agreement. Approximately 10 cc of 1% Xylocaine with epinephrine was injected at the operative site, approximately half into the carpal tunnel and half into the subcutaneous tissues over the incisional area and distal forearm proximal to the intended incision. An incision was made in line with the third webspace beginning at the wrist flexor crease and extending distally in a longitudinal direction. The subcutaneous tissue and palmar aponeurosis were divided longitudinally. The transverse carpal ligament was exposed. Self-retaining retractor was inserted. An incisi on into the transverse carpal ligament was made proximally. A groove retractor was inserted beneath the transverse carpal ligament. The transverse carpal ligament was then divided from proximal to distal with the distal extent of the release performed with tenotomy scissors. A bleeder was encountered. A tourniquet was then applied, hemostasis achieved and the proximal release was performed again using a groove retractor to protect the median nerve. A full release of the carpal tunnel was achieved. The median nerve appeared grossly normal. The tourniquet was released after 5 minutes. The skin was closed with 4-0 nylon vertical mattress suture, 3 stitches. A bulky hand and wrist dressing was applied with Xeroform to the incision fluffs between the fingers and over the incision, gauze wrap and Sam wrap. Patient tolerated procedure well. The procedure was performed using local anesthesia given by surgeon with supplemental sedation by anesthesia.
[2020-01-14] MEDS: HYDROmorphone 0.5 MG/0.5 ML SYRINGE IVP PRN ×3 (09:27→09:38)
[2020-01-14] MEDS ORDERED: HYDROmorphone 1 MG/ML CARPUJECT ONE (09:33)
[2020-01-14] MEDS ORDERED: HYDROcod/ACETAM 5/325 MG TABLET PO PRN (09:42)
[2020-01-14] MEDS ORDERED: LACTATED RINGERS 1,000 ML IV SCH (10:00)
[2020-01-14] MEDS ORDERED: HYDROcod/ACETAM 5/325 MG TABLET ONE (10:04)
[2020-01-14 10:11] VITALS: BP 132/91
--- NOTE | 2020-01-14 10:17 | ANESTHESIA POST OP EVALUATION ---
Anesthesia Post Eval - Post Anesthesia Eval Vitals: Last Vital Signs Temp 36.2 C L 01/14/20 09:45 Pulse 74 01/14/20 10:00 Resp 16 01/14/20 10:00 BP 132/91 H 01/14/20 10:00 Pulse Ox 100 01/14/20 10:00 CV Function Including HR & BP: positive: Stable Pain Control: positive: Satisfactory Nausea & Vomiting: positive: Negative Mental Status: positive: Baseline Respiratory Status: Airway Patent Hydration Status: Satisfactory Anesthesia Complications: positive: None
== END 2020-01-14 07:28 | disposition home or self-care (01) ==
LOC: SDS 07:27
PROVIDERS: ATTEND Orthopaedic Surgery
PROC: 01N50ZZ Release Median Nerve, Open Approach (ICD-10-PCS; principal; 2020-01-14 08:45)
DX: G56.01 Carpal tunnel syndrome, right upper limb (principal); I10 Essential (primary) hypertension; M65.9 Synovitis and tenosynovitis, unspecified
CPT/HCPCS: 64721; 81025; A9270; J0131; J1170; J7120

== ENCOUNTER 2020-01-16 14:42 | Observation (INO) | payer OTHER, MEDICAID ==
[2020-01-16] MEDS ORDERED: oxyCODONE 5 MG TABLET PO STA (15:04)
[2020-01-16] MEDS ORDERED: VANCOMYCIN INJ 1 GM in SODIUM CHLORIDE 0.9% 500 ML IV STA (15:11)
[2020-01-16] MEDS ORDERED: AMPICILLIN/SULBACTAM 3 GM in SODIUM CHLORIDE 0.9% MINIBAG 100 ML IV STA (15:11)
[2020-01-16] MEDS ORDERED: SODIUM CHLORIDE 0.9% 1,000 ML IV STA ×2 (15:11→16:14)
--- NOTE | 2020-01-16 15:12 | ED Physician Documentation ---
History of Present Illness - Stated complaint Stated Complaint: RIGHT ARM PAIN - Chief complaint Chief Complaint: Trauma Ext - History obtained from History obtained from: Patient - History of Present Illness Timing: How many days ago (2) Pain level max: 10 Pain level now: 10 - Additonal information Additional information: 39-year-old female presents to the emergency department with increasing pain, swelling status post right carpal tunnel surgery 2 days ago. This is performed here. She states that the pain medication is not helping at home. Called orthopedics and was referred here for evaluation. No fevers. No chills. Worse with movement and better with rest Review of Systems Ten Systems: 10 systems reviewed and negative Constitutional: denies: Fever, Chills Ears: denies: Ear pain Nose: denies: Rhinorrhea / runny nose, Congestion Cardiac: denies: Chest pain / pressure Respiratory: denies: Cough GI: denies: Abdominal Pain, Nausea, Vomiting, Diarrhea Skin: denies: Rash Musculoskeletal: denies: Neck pain, Back pain Neurologic: denies: Headache PD PAST MEDICAL HISTORY - Past Medical History Past Medical History: Yes Cardiovascular: None Respiratory: Asthma Endocrine/Autoimmune: None GI: GERD, Cholelithiasis [employer]: Ovarian cysts : None HEENT: None Psych: Depression, Anxiety Musculoskeletal: Chronic back pain Derm: None - Past Surgical History Past Surgical History: Yes General: Cholecystectomy /[employer]ER: section HEENT:  Derm: Other - Present Medications Home Medications: Ambulatory Orders Medication Instructions Recorded Confirmed Valacyclovir HCl [Valtrex] 500 mg ORAL DAILY 11/09/13 01/08/20 Omeprazole 20 mg PO DAILY 01/26/15 01/08/20 Losartan Potassium 50 mg PO DAILY 01/08/20 01/08/20 Methocarbamol [Robaxin-750] 750 mg PO TID PRN 01/08/20 01/08/20 Multivitamin 1 each PO DAILY 01/08/20 01/08/20 metFORMIN [Glucophage] 500 mg PO BIDWM 01/08/20 01/08/20 oxyCODONE/ACET 5/325 [Percocet 5 1 each PO Q4-6H #10 tablet 01/14/20 mg/325 mg] - Allergies Allergies/Adverse Reactions: Allergies Allergy/AdvReac Type Severity Reaction Status Date / Time ibuprofen Allergy stomach Verified 01/16/20 14:45 ulcers mussels Allergy Anaphylaxis Verified 01/16/20 14:45 tramadol Allergy Itching Verified 01/16/20 14:45 hydrocodone bitartrate * AdvReac Itching Verified 01/16/20 14:45 [From Vicodin] salmon Allergy Anaphylaxis Uncoded 01/16/20 14:45 - Social History Does the pt smoke?: No Smoking Status: Never smoker Does the pt drink ETOH?: Yes Does the pt have substance abuse?: No - Immunizations Immunizations are current?: No Immunizations: TDAP current <10years - POLST Patient has POLST: No PD ED PE NORMAL - Vitals Vital signs reviewed: Yes - General General: Alert and oriented X 3, No acute distress - HEENT HEENT: Moist mucous membranes - Neck Neck: Supple, no meningeal sign - Cardiac Cardiac: RRR - Respiratory Respiratory: No respiratory distress, Clear bilaterally - Abdomen Abdomen: Soft, Non tender, Non distended - Derm Derm: Warm and dry - Extremities Extremities: Other (R arm - Significant swelling to the hand and forearm, Erythema that extends from the incision up the forearm and midway up the humerus. NVI) - Neuro Neuro: Alert and oriented X 3 Results - Vitals Vitals: Vital Signs - 24 hr 01/16/20 14:45 Temperature 37.3 C Heart Rate 89 Respiratory 18 Rate Blood Pressure 137/100 H O2 Saturation 99 Oxygen O2 Source Room air - Labs Labs: Laboratory Tests 01/16/20 01/16/20 01/16/20 15:20 15:20 15:20 WBC 10.2 RBC 4.30 Hgb 12.8 Hct 38.0 MCV 88.4 MCH 29.8 MCHC 33.7 RDW 13.7 Plt Count 318 MPV 10.2 Neut # (Auto) Not Reportable Lymph # (Auto) Not Reportable Mcdonald # (Auto) Not Reportable Eos # (Auto) Not Reportable Baso # (Auto) Not Reportable Absolute Nucleated RBC Not Reportable Total Counted 100 Band Neuts % (Manual) 0 Abnorm Lymph % (Manual) 0 Nucleated RBC % Not Reportable Neutrophils # (Manual) 6.0 Lymphocytes # (Manual) 2.7 Monocytes # (Manual) 0.2 Eosinophils # (Manual) 1.3 H Basophils # (Manual) 0.0 Differential Comment MANUAL DIFFERENTIAL Manual Slide Review Indicated WBC Morphology NORMAL ROCHELLE Platelet Estimate NORMAL (130-450,000) Platelet Morphology NORMAL ROCHELLE RBC Morph Micro Appear NORMAL APPEARANCE Sodium 133 L Potassium 3.8 Chloride 103 Carbon Dioxide 22 Anion Gap 8.0 BUN 24 H Creatinine 1.2 H Estimated GFR (MDRD) 50 L Glucose 86 Lactic Acid 0.5 Calcium 8.7 PD MEDICAL DECISION MAKING - ED course Complexity details: reviewed old records, reviewed results, re-evaluated patient, considered differential, d/w patient, d/w development consultant ED course: Patient with what appears to be cellulitis and significant swelling after her recent surgery for carpal tunnel syndrome. She does have erythema going up the arm into the mid humerus area. She also has acute renal insufficiency. Baseline creatinine is 0.6 -0.7. She is at 1.2 today. Given IV fluids for this Discussed the case with Dr. Roland, orthopedics. We will place her on IV antibiotics and observe her overnight. This document was made in part using voice recognition software. While efforts are made to proofread this document, sound alike and grammatical errors may occur. Departure - Departure Disposition: ED Place in Observation Clinical Impression: Post-operative pain, Renal insufficiency Cellulitis Qualifiers: Site of cellulitis: extremity Site of cellulitis of extremity: upper extremity Laterality: right Qualified Code(s): L03.113 - Cellulitis of right upper limb Condition: Stable
[2020-01-16] MEDS ORDERED: VANCOMYCIN INJ 1 GM in SODIUM CHLORIDE 0.9% 250 ML IV STA (15:15)
[2020-01-16 15:31] LABS: BASOPHILS % (AUTO) 0.3 %; EOSINOPHILS % (AUTO) 11.9 %; HGB - HEMOGLOBIN 12.8 g/dL (12.0-16.0); LYMPHOCYTES % (AUTO) 21.8 %; MEAN CORPUSCULAR HEMOGLOBIN 29.8 pg (27.0-31.0); MEAN CORPUSCULAR HGB CONC 33.7 g/dL (32.0-36.0); MEAN CORPUSCULAR VOLUME 88.4 fL (81.0-99.0); MEAN PLATELET VOLUME 10.2 fL (7.9-10.8); MONOCYTES % (AUTO) 8.4 %; PLT - PLATELET COUNT 318 10^3/uL (130-450); RED CELL DISTRIBUTION WIDTH 13.7 % (12.0-15.0); WHITE BLOOD COUNT 10.2 x10^3/uL (4.8-10.8)
[2020-01-16 15:33] LABS: ABNORMAL LYMPHS % (MANUAL) 0 %; BAND NEUTROPHILS % (MANUAL) 0 %
[2020-01-16 15:40] LABS: CALCIUM 8.7 mg/dL (8.5-10.3); CREATININE 1.2 mg/dL (0.4-1.0)
[2020-01-16 16:04] LABS: EOSINOPHILS # (MANUAL) 1.3 10^3/uL (0-0.7); LYMPHOCYTES # (MANUAL) 2.7 10^3/uL (1.5-3.5); LYMPHOCYTES % (MANUAL) 26 %; MONOCYTES # (MANUAL) 0.2 10^3/uL (0.0-1.0)
[2020-01-16 16:12] LABS: DIFFERENTIAL COMMENT MANUAL DIFFERENTIAL; PLATELET ESTIMATE, MANUAL NORMAL (130-450,000) (NORMAL); PLATELET MORPHOLOGY NORMAL APP (NORMAL); RBC MORPHOLOGY (MULTIPLE) NORMAL APPEARANCE (NORMAL)
[2020-01-16] MEDS ORDERED: SODIUM CHLORIDE FLUSH 0.9% 10 ML SYRINGE IVP PRN (17:17)
[2020-01-16] MEDS ORDERED: ceFAZolin 2 GM in SODIUM CHLORIDE 0.9% 100ML 100 ML IV SCH (18:00)
[2020-01-16] MEDS: ACETAMINOPHEN 325 MG TABLET PO PRN ×2 (18:21→22:37)
[2020-01-16] MEDS: ceFAZolin 2 GM in SODIUM CHLORIDE 0.9% 100ML 100 ML IV SCH (18:58)
[2020-01-16] MEDS: SODIUM CHLORIDE 0.9% 1,000 ML IV SCH (19:00)
[2020-01-16] MEDS ORDERED: ceFAZolin 1 GM VIAL ONE (19:00)
[2020-01-16 19:03] LABS: C. PNEUMONIAE- RESP PCR PANEL NOT DETECTED
[2020-01-16] MEDS: oxyCODONE 5 MG TABLET PO PRN (19:50)
[2020-01-16] MEDS: metFORMIN 500 MG TABLET PO SCH (19:51)
--- NOTE | 2020-01-16 19:54 | HISTORY & PHYSICAL EXAMINATION ---
DATE OF SERVICE: 01/16/2020 Physician: Asim Roland MD CHIEF COMPLAINT: "My operative hand and forearm is swollen and red, very painful." HISTORY OF PRESENT ILLNESS: The patient is a right hand dominant 39-year-old female who h as been evaluated and treated by Dr. Lara in the orthopedic clinic for bilateral right worse than left carpal tunnel syndrome. Her diagnosis has been confirmed with abnormal nerve conduction studie s to the upper extremity as well. Two days prior to her admission she was operated on as an outpatie nt by Dr. Lara for an open right carpal tunnel release. The patient continues to have persistent hypesthesia in the median nerve distribution in her hand, but this was preoperatively as well. Imme diately postop, she was doing quite well, having no fever, no significant pain or other symptomatolog y besides her chronic hypesthesia in her digits. She says that she has been keeping her hand elevate d. She has not noted her dressings to be overly snug. Over the last 10-12 hours; however, she has be en noticing progressive swelling, pain and redness involving not only the palmar aspect of her hand i n the area of her incision, but extending proximally over the volar aspect of her forearm. There is also some mild erythema on the medial aspect of her upper arm, although this is not particularly pain ful. The patient denies any fevers. No problems in the past with cellulitis or other infections. CURRENT MEDICATIONS 1. Losartan 50 mg daily. 2. Metformin 500 mg twice daily. 3. Omeprazole 20 mg by mouth daily, 4. Valacyclovir 500 mg daily. ALLERGIES: Multiple allergies including IBUPROFEN, SHELLFISH, TRAMADOL, and HYDROCODONE. REVIEW OF SYSTEMS: Noncontributory. PHYSICAL EXAMINATION: VITAL SIGNS: Blood pressure of 138/104, pulse 81, and respirations 18. HEEN T: Normocephalic, PERRLA. EOMs full. Vision and hearing grossly intact and symmetrical. Nose and throat clear. Neck was supple without any nodes or tenderness. CHEST: Clear to auscultation without rales or wheezes. CARDIOVASCULAR: Regular rate and rhythm. S1 and S2 heard without murmurs, rubs or gallops. ABDOMEN: Soft, protuberant, nontender. Active bowel sounds. EXTREMITIES: Within norm al limits except for the right upper extremity. Right upper extremity shows about a 2-3 cm proximal palmar incision consistent with carpal tunnel release. The wound itself shows no active drainage. M inimal swelling or erythema noted. Mildly tender on palpation. The patient still has hypesthesia in the palmar aspect of her median 3 digits. This apparently was chronic. She has 1-2+ swelling invol ving the volar aspect of her forearm. This is somewhat tender. She has good passive range of motion of the wrist without any problems. With passive stretch of her middle digit she does have some pain , though she is able to actively flex and extend with less discomfort. Other digits are minimally in volved with active range of motion in extension and flexion. There is no tenderness in the medial up per arm, although there is some mild erythema in this region. No axillary nodes appreciated. The pa tient was afebrile. Laboratory showed a white count of 10,200. ASSESSMENT: Bilateral carpal tunnel syndrome - right worse than left. She is now 2 days postoperati ve right carpal tunnel release performed by Dr. Lara. The patient was doing well until approxima tely 12 hours prior to her admission when she began noticing significant swelling, redness and pain i nvolving her right palm and extending into the volar aspect of her right forearm. She characterizes her pain in the emergency room as a 7 out of 10 in intensity. PLAN: In view of the patient's presentation, I have decided to proceed to observe her overnight. Wi ll admit her for observation status and see if starting her on some IV antibiotics and elevation of h er extremity will be helpful. Will start her empirically on some Ancef IV along with elevation and o bservation of her forearm and hand. Analgesics as needed as well. TD: 01/16/2020 17:49
[2020-01-17] MEDS: oxyCODONE 5 MG TABLET PO PRN ×3 (00:02→09:13)
[2020-01-17] MEDS: SODIUM CHLORIDE 0.9% 1,000 ML IV SCH (00:02)
[2020-01-17] MEDS: SODIUM CHLORIDE FLUSH 0.9% 10 ML SYRINGE IVP SCH ×2 (00:03→09:23)
[2020-01-17] MEDS: ceFAZolin 2 GM in SODIUM CHLORIDE 0.9% 100ML 100 ML IV SCH (02:21)
[2020-01-17 08:06] VITALS: BP 126/88
--- NOTE | 2020-01-17 08:43 | PHARMACY PROGRESS NOTE ---
- Best Possible Medication History Admit Date and Time: 01/16/20 1717 Processed by: Pharmacy Medication History completed: Yes Patient Interview: Completed Secondary Source(s): Pharmacy records, Insurance records As the person ultimately responsible for medication therapy, providers are able to order a medication from an existing home medication list in [facility] via the "Reconcile Routine" prior to Confirmation of that medication by passport support manager. Such practice is discouraged except when the physician, in their clinical judgment, deems that a medical need exists for a medication without regard to previous use.
[2020-01-17] MEDS ORDERED: PANTOPRAZOLE 40 MG TABLET PO SCH (09:00)
[2020-01-17] MEDS ORDERED: LOSARTAN 50 MG TABLET PO SCH (09:00)
[2020-01-17] MEDS ORDERED: valACYclovir 500 MG TABLET PO SCH (09:00)
[2020-01-17] MEDS: metFORMIN 500 MG TABLET PO SCH (09:12)
--- NOTE | 2020-01-17 09:23 | PROVIDER PROGRESS NOTE ---
Subjective - Prog Note Date Prog Note Date: 01/17/20 Prog Note Time: 09:21 - Subjective Pt reports feeling: Improved (Much pain and redness in forearm.) Objective - Vital Signs/Intake & Output Vital Signs: Vital Signs x48h Temp Pulse Pulse Resp BP Pulse Ox 01/17/20 08:06 36.9 C 83 16 126/88 H 98 01/17/20 05:00 37.1 C 78 16 129/70 98 01/17/20 04:51 37 C 78 16 98 Intake & Output: Intake & Output 01/14/20 01/15/20 01/16/20 01/17/20 23:59 23:59 23:59 23:59 Intake Total 3127 2253.333 Output Total 0 Balance 3127 2253.333 - Lab Results Fish Bones: 01/16/20 15:20 01/16/20 15:20 Other Labs: Lab Results x24hrs 01/16/20 01/16/20 01/16/20 Range/Units 17:50 15:20 15:20 WBC (4.8-10.8) x10^3/uL RBC (4.20-5.40) 10^6/uL Hgb (12.0-16.0) g/dL Hct (37.0-47.0) % MCV (81.0-99.0) fL MCH (27.0-31.0) pg MCHC (32.0-36.0) g/dL RDW (12.0-15.0) % Plt Count (130-450) 10^3/uL MPV (7.9-10.8) fL Neut # (Auto) Lymph # (Auto) Dickinson # (Auto) Eos # (Auto) Baso # (Auto) Absolute Nucleated RBC Total Counted Band Neuts % (Manual) (0 - 10) % Abnorm Lymph % (Manual) % Nucleated RBC % Neutrophils # (Manual) (1.5-6.6) 10^3/uL Lymphocytes # (Manual) (1.5-3.5) 10^3/uL Monocytes # (Manual) (0.0-1.0) 10^3/uL Eosinophils # (Manual) (0-0.7) 10^3/uL Basophils # (Manual) (0-0.1) 10^3/uL Differential Comment Manual Slide Review WBC Morphology (NORMAL) Platelet Estimate (NORMAL) Platelet Morphology (NORMAL) RBC Morph Micro Appear (NORMAL) Sodium 133 L (135-145) mmol/L Potassium 3.8 (3.5-5.0) mmol/L Chloride 103 (101-111) mmol/L Carbon Dioxide 22 (21-32) mmol/L Anion Gap 8.0 (6-13) BUN 24 H (6-20) mg/dL Creatinine 1.2 H (0.4-1.0) mg/dL Estimated GFR (MDRD) 50 L (>89) Glucose 86 (70-100) mg/dL Lactic Acid 0.5 (0.5-2.2) mmol/L Calcium 8.7 (8.5-10.3) mg/dL Nasal Adenovirus (PCR) NOT DETECTED Nasal B. parapertussis DNA (PCR) NOT DETECTED Nasal Coronavir 229E PCR NOT DETECTED Nasal Coronavir HKU1 PCR NOT DETECTED Nasal Coronavir NL63 PCR NOT DETECTED Nasal Coronavir OC43 PCR NOT DETECTED Nasal Enterovir/Rhinovir PCR NOT DETECTED Nasal Influenza B PCR NOT DETECTED Nasal Influenza A PCR NOT DETECTED Nasal Parainfluen 1 PCR NOT DETECTED Nasal Parainfluen 2 PCR NOT DETECTED Nasal Parainfluen 3 PCR NOT DETECTED Nasal Parainfluen 4 PCR NOT DETECTED Nasal RSV (PCR) NOT DETECTED Nasal B.pertussis DNA PCR NOT DETECTED Nasal C.pneumoniae (PCR) NOT DETECTED Rudy Human Metapneumo PCR NOT DETECTED Nasal M.pneumoniae (PCR) NOT DETECTED Nasal SARS-CoV-2 (PCR) NOT DETECTED 01/16/20 Range/Units 15:20 WBC 10.2 (4.8-10.8) x10^3/uL RBC 4.30 (4.20-5.40) 10^6/uL Hgb 12.8 (12.0-16.0) g/dL Hct 38.0 (37.0-47.0) % MCV 88.4 (81.0-99.0) fL MCH 29.8 (27.0-31.0) pg MCHC 33.7 (32.0-36.0) g/dL RDW 13.7 (12.0-15.0) % Plt Count 318 (130-450) 10^3/uL MPV 10.2 (7.9-10.8) fL Neut # (Auto) Not Reportable Lymph # (Auto) Not Reportable Dickinson # (Auto) Not Reportable Eos # (Auto) Not Reportable Baso # (Auto) Not Reportable Absolute Nucleated RBC Not Reportable Total Counted 100 Band Neuts % (Manual) 0 (0 - 10) % Abnorm Lymph % (Manual) 0 % Nucleated RBC % Not Reportable Neutrophils # (Manual) 6.0 (1.5-6.6) 10^3/uL Lymphocytes # (Manual) 2.7 (1.5-3.5) 10^3/uL Monocytes # (Manual) 0.2 (0.0-1.0) 10^3/uL Eosinophils # (Manual) 1.3 H (0-0.7) 10^3/uL Basophils # (Manual) 0.0 (0-0.1) 10^3/uL Differential Comment MANUAL DIFFERENTIAL Manual Slide Review Indicated WBC Morphology NORMAL ROCHELLE (NORMAL) Platelet Estimate NORMAL (130-450,000) (NORMAL) Platelet Morphology NORMAL ROCHELLE (NORMAL) RBC Morph Micro Appear NORMAL APPEARANCE (NORMAL) Sodium (135-145) mmol/L Potassium (3.5-5.0) mmol/L Chloride (101-111) mmol/L Carbon Dioxide (21-32) mmol/L Anion Gap (6-13) BUN (6-20) mg/dL Creatinine (0.4-1.0) mg/dL Estimated GFR (MDRD) (>89) Glucose (70-100) mg/dL Lactic Acid (0.5-2.2) mmol/L Calcium (8.5-10.3) mg/dL Nasal Adenovirus (PCR) Nasal B. parapertussis DNA (PCR) Nasal Coronavir 229E PCR Nasal Coronavir HKU1 PCR Nasal Coronavir NL63 PCR Nasal Coronavir OC43 PCR Nasal Enterovir/Rhinovir PCR Nasal Influenza B PCR Nasal Influenza A PCR Nasal Parainfluen 1 PCR Nasal Parainfluen 2 PCR Nasal Parainfluen 3 PCR Nasal Parainfluen 4 PCR Nasal RSV (PCR) Nasal B.pertussis DNA PCR Nasal C.pneumoniae (PCR) Rudy Human Metapneumo PCR Nasal M.pneumoniae (PCR) Nasal SARS-CoV-2 (PCR) - Other Results/Comments Other Results/Comments: EXAM: Afebrile. Incision - clean and dry. Mild swelling; erythema resolved. Moves fingers ok. Still with some pain with stretch of digits, but less so from 12 hours ago. Redness in forearm and arm nearly resolved now. Still 1-2+ swelling of forearm. N/V the same as preop. Assessment/Plan - Problem List (1) Cellulitis Impression: Improved after 12 hours IV antibiotics PLAN: Will discharge home with oral antibiotics x 10 days. Keep forearm elevated above heart with pillows. Active and passive motion to wrist and digits as tolerated 3-4 times daily. Will contact office on Sunday for follow up clinic visit. Qualifiers: Site of cellulitis: extremity Site of cellulitis of extremity: upper extremity Laterality: right Qualified Code(s): L03.113 - Cellulitis of right upper limb
--- NOTE | 2020-01-17 11:18 | DISCHARGE SUMMARY ---
Physician: Asim Roland MD DATE OF ADMISSION: 01/16/2020 DATE OF DISCHARGE: 01/17/2020 DISCHARGE DIAGNOSES 1. Possible postoperative cellulitis to the right hand and forearm. 2. Status post right carpal tunnel release on 01/14/2020. HOSPITAL COURSE: The patient was evaluated in the emergency room on 01/16/2020 two days after her op en right dominant carpal tunnel release. She states for the first 36 hours or so she was doing fine postoperatively. About 8-10 hours prior to her evaluation in the emergency room, she began noticing progressive swelling, redness and pain to her right forearm and right hand. This was despite pain me dications and elevation of her hand. When seen in the emergency room, we were concerned about the po ssibility of an early cellulitis to her right forearm and hand. She was subsequently admitted to the orthopedic service for overnight observation on IV antibiotics, elevation, and pain control. By the next day after admission, she was markedly improved clinically, had much less redness in her h and and forearm. The swelling was still present, albeit slightly diminished. She had better range o f motion of the fingers, and her pain complaints had gone from about a 7/10 to about a 2/10 overnight . She still had a little stiffness in range of motion of her digits with some mild discomfort with s ome passive stretch, particularly of the middle digit, but again, this subjectively seemed to be impr sima. The patient was eager to be discharged home. DISCHARGE PLANS: 1. The patient was discharged home today. 2. The patient will continue to keep the right hand and forearm elevated with pillows above her he art. May be up as tolerated otherwise. 3. Local heat to the forearm and hand as tolerated. 4. The patient will call the orthopedic office on Sunday and schedule a followup appointment for h er hand with Dr. Lara, her operating surgeon. DISCHARGE MEDICATIONS 1. Keflex 500 mg p.o. q.i.d. x10 days. 2. Oxycodone 5 mg tablets, #20, 1 or 2 tablets every 6 hours as needed for pain. TD: 01/17/2020 09:43
== END 2020-01-17 10:30 | disposition home or self-care (01) ==
LOC: ED 14:42 → MS2 17:17
PROVIDERS: ADMIT Orthopaedic Surgery; ATTEND Orthopaedic Surgery
DX: T81.49XA Infection following a procedure, other surgical site, initial encounter (principal); L03.113 Cellulitis of right upper limb; K21.9 Gastro-esophageal reflux disease without esophagitis; Z79.899 Other long term (current) drug therapy
CPT/HCPCS: 0202U; 36415; 80048; 83605; 85025; 87040; 96365; 96366; 96367; 96368; 99284; 99285; A9270; G0378; J3370

== ENCOUNTER 2020-02-02 07:14 | Outpatient (CLI) | payer OTHER, MEDICAID ==
--- NOTE | 2020-02-02 10:11 | Ultrasound Report ---
PROCEDURE: Pelvic w/Transvaginal INDICATIONS: DYSMENORRHEA, POLYCYSTIC OVARIAN DISEASE TECHNIQUE: Real-time scanning was performed of the pelvic organs, with image documentation. Additional endovagi nal scanning was necessary due to incomplete visualization of the adnexal and endometrial structures by transabdominal scanning. COMPARISON: Pelvic ultrasound 04/05/2018, 03/10/2017. FINDINGS: Transabdominal scanning: Limited scanning through the kidneys shows no hydronephrosis. No pathologi c free abdominal or pelvic fluid. Endovaginal scanning: Uterus: Uterus is normal in size at 10.3 x 4.7 x 5.5 cm. The endometrium measures 7.7 mm in combine d thickness. Within the mid anterior aspect of the lower uterine segment there is a focus of heterogeneous echogen icity measuring 14 x 12 x 12 mm compared to 14 x 11 x 17 mm. Similar focus in the right anterior midp ortion is present measuring 8 x 7 x 6 mm compared to 6 x 6 x 7 mm. Ovaries: Right ovary measures 3.2 x 2.8 x 2.5 cm. Less than 12 follicles are noted. Left ovary measu res 2.7 x 2.7 x 2.0 cm. Less than 12 follicles are noted. The largest on the left measures 16 mm, wit h the largest on the right measuring 13 mm. Doppler flow is present bilaterally. IMPRESSION: 1. Less than 12 follicles are noted bilaterally. 2. Foci of heterogeneous echogenicity within the uterus suggestive of small fibroids. They are unchan ged. Reviewed by: Huma Tubbs MD on 02/02/2020 10:10 AM PST Approved by: Huma Tubbs MD on 02/02/2020 10:10 AM PST Station ID: [id number]
== END 2020-02-02 07:15 | disposition home or self-care (01) ==
LOC: DI 07:14
PROVIDERS: ATTEND Obstetrics & Gynecology
DX: E28.2 Polycystic ovarian syndrome (principal); N94.4 Primary dysmenorrhea; N92.6 Irregular menstruation, unspecified

== ENCOUNTER 2020-02-07 22:14 | Emergency (ER) | payer OTHER, MEDICAID ==
[2020-02-07] MEDS ORDERED: cefTRIAXone 2 GM in SODIUM CHLORIDE 0.9% MINIBAG 100 ML IV STA (23:04)
[2020-02-07 23:24] LABS: BASOPHILS % (AUTO) 0.9 %; EOSINOPHILS % (AUTO) 12.8 %; HGB - HEMOGLOBIN 11.5 g/dL (12.0-16.0); LYMPHOCYTES % (AUTO) 30.9 %; MEAN CORPUSCULAR VOLUME 91.1 fL (81.0-99.0); MEAN PLATELET VOLUME 9.7 fL (7.9-10.8); NEUTROPHILS % (AUTO) 46.2 %; PLT - PLATELET COUNT 313 10^3/uL (130-450); RED BLOOD COUNT 3.83 10^6/uL (4.20-5.40); RED CELL DISTRIBUTION WIDTH 13.4 % (12.0-15.0); WHITE BLOOD COUNT 9.7 x10^3/uL (4.8-10.8)
[2020-02-07] MEDS ORDERED: cefTRIAXone 2 GM VIAL ONE (23:28)
[2020-02-07] MEDS ORDERED: HYDROmorphone 1 MG/ML CARPUJECT IVP STA (23:29)
[2020-02-07] MEDS ORDERED: KETOROLAC 30 MG/ML VIAL IVP STA (23:29)
[2020-02-07 23:30] LABS: ABNORMAL LYMPHS % (MANUAL) 0 %; BAND NEUTROPHILS % (MANUAL) 0 %
--- NOTE | 2020-02-07 23:32 | ED Physician Documentation ---
History of Present Illness - Stated complaint Stated Complaint: POST OP RT HAND PX - Chief complaint Chief Complaint: Ext Problem - History obtained from History obtained from: Patient - Additonal information Additional information: Patient comes emergency department complaining of right hand pain and increasing swelling since yesterday. She states she is also had chills. The patient is status post carpal tunnel release on 13 January and 2 days after that, developed a postoperative wound infection with cellulitis. She was admitted to the hospital at time at that time and given IV antibiotics, after which she was released and given a 10-day course of Keflex. Patient followed up with Dr. Helm, her surgeon, and had sutures removed and was feeling much better for a couple of weeks. However, her symptoms began to recur yesterday. Patient states she has not noticed any redness yet, but noticed a slight amount of drainage coming out of the suture hole on her hand. She denies any measured fevers. She states that it hurts to straighten her fingers all the way. No other complaints at this time. Review of Systems Ten Systems: 10 systems reviewed and negative Constitutional: reports: Chills Eyes: reports: Reviewed and negative Ears: reports: Reviewed and negative Nose: reports: Reviewed and negative Throat: reports: Reviewed and negative Cardiac: reports: Reviewed and negative Respiratory: reports: Reviewed and negative GI: reports: Reviewed and negative : reports: Reviewed and negative Skin: reports: Other (Swelling of incision site) Musculoskeletal: reports: Extremity pain, Extremity swelling Neurologic: reports: Reviewed and negative Psychiatric: reports: Reviewed and negative Endocrine: reports: Reviewed and negative Immunocompromised: reports: Reviewed and negative PD PAST MEDICAL HISTORY - Past Medical History Past Medical History: Yes Cardiovascular: None Respiratory: Asthma Endocrine/Autoimmune: None GI: GERD, Cholelithiasis 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 HEENT: None Psych: Depression, Anxiety Musculoskeletal: Chronic back pain Derm: None - Past Surgical History Past Surgical History: Yes General: Cholecystectomy Ortho: Carpal Tunnel surgery /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 HEENT:  Derm: Other - Present Medications Home Medications: Ambulatory Orders Medication Instructions Recorded Confirmed Valacyclovir HCl [Valtrex] 500 mg ORAL DAILY 11/09/13 01/17/20 Omeprazole 20 mg PO DAILY 01/26/15 01/17/20 Losartan Potassium 50 mg PO DAILY 01/08/20 01/17/20 Methocarbamol [Robaxin-750] 750 mg PO TID PRN 01/08/20 01/17/20 Multivitamin 1 each PO DAILY 01/08/20 01/17/20 metFORMIN [Glucophage] 500 mg PO BIDWM 01/08/20 01/17/20 Oxycodone HCl/Acetaminophen 1 - 2 each PO Q6H PRN #14 tablet 02/08/20 [Percocet 5-325 mg Tablet] - Allergies Allergies/Adverse Reactions: Allergies Allergy/AdvReac Type Severity Reaction Status Date / Time ibuprofen Allergy stomach Verified 01/16/20 14:45 ulcers mussels Allergy Anaphylaxis Verified 01/16/20 14:45 tramadol Allergy Itching Verified 01/16/20 14:45 hydrocodone bitartrate * AdvReac Itching Verified 01/16/20 14:45 [From Vicodin] salmon Allergy Anaphylaxis Uncoded 01/16/20 14:45 surgical tape AdvReac Rash Uncoded 01/16/20 19:25 - Social History Does the pt smoke?: No Smoking Status: Never smoker Does the pt drink ETOH?: Yes Does the pt have substance abuse?: No - Immunizations Immunizations are current?: No Immunizations: TDAP current <10years - POLST Patient has POLST: No PD ED PE NORMAL - Vitals Vital signs reviewed: Yes - General General: Alert and oriented X 3, No acute distress - HEENT HEENT: Atraumatic, PERRL, EOMI, Moist mucous membranes - Neck Neck: Supple, no meningeal sign - Cardiac Cardiac: RRR, No murmur, Strong equal pulses - Respiratory Respiratory: No respiratory distress, Clear bilaterally - Derm Derm: Normal color, Warm and dry, Other (Healing incision site at base of right palm. No expressible drainage. No obvious fluid collection beneath the incision site. No dehiscence. Wound is dry.) - Extremities Extremities: No deformity, Other (Moderate tense edema of the patient's Right palm base, surrounding her healing surgical site. Edema is worse on the ulnar aspect. Fingers are not involved. Moderate tenderness throughout palm; mild tenderness of the flexor aspect 4th/5th digits. Mild edema/tend flexor aspect wrist; ) - Neuro Neuro: Alert and oriented X 3 - Psych Psych: Normal mood, Normal affect Results - Vitals Vitals: Vital Signs - 24 hr 02/07/20 22:14 Temperature 37.4 C Heart Rate 77 Respiratory 18 Rate Blood Pressure 181/114 H O2 Saturation 100 Oxygen O2 Source Room air - Labs Labs: Laboratory Tests 02/07/20 02/07/20 23:05 23:05 WBC 9.7 RBC 3.83 L Hgb 11.5 L Hct 34.9 L MCV 91.1 MCH 30.0 MCHC 33.0 RDW 13.4 Plt Count 313 MPV 9.7 Neut # (Auto) Not Reportable Lymph # (Auto) Not Reportable [place] # (Auto) Not Reportable Eos # (Auto) Not Reportable Baso # (Auto) Not Reportable Absolute Nucleated RBC Not Reportable Total Counted 100 Band Neuts % (Manual) 0 Abnorm Lymph % (Manual) 0 Nucleated RBC % Not Reportable Neutrophils # (Manual) 5.1 Lymphocytes # (Manual) 2.4 Monocytes # (Manual) 1.1 H Eosinophils # (Manual) 1.1 H Basophils # (Manual) 0.0 Differential Comment MANUAL DIFFERENTIAL WBC Morphology NORMAL APPEARANCE Platelet Estimate NORMAL (130-450,000) Platelet Morphology NORMAL APPEARANCE RBC Morph Micro Appear NORMAL APPEARANCE Sodium 136 Potassium 3.8 Chloride 104 Carbon Dioxide 23 Anion Gap 9.0 BUN 18 Creatinine 0.8 Estimated GFR (MDRD) 80 L Glucose 106 H Calcium 9.1 Total Bilirubin 0.2 AST 14 ALT 13 Alkaline Phosphatase 48 Total Protein 7.0 Albumin 4.1 Globulin 2.9 Albumin/Globulin Ratio 1.4 Lipase 26 PD MEDICAL DECISION MAKING - ED course Complexity details: reviewed results, re-evaluated patient, considered differential, d/w patient ED course: CBC and blood cultures were drawn on the patient and IV was started. I discussed the case with Dr. Dailey, who is on-call for orthopedics, but he requested to regroup with the Rocephin IV for the patient tonight. He stated that she did not need to stay in the hospital overnight, but that he would like her to come back in 24 hours for another 2 g of Rocephin. Given that tomorrow is Sunday, he would like to have the patient come and see Dr. Lara or himself in clinic on Sunday morning, first thing. Departure - Departure Disposition: 01 Home, Self Care Clinical Impression: Post op infection Qualifiers: Encounter type: initial encounter Postoperative infection type: superficial incisional surgical site Qualified Code(s): T81.41XA - Infection following a procedure, superficial incisional surgical site, initial encounter Condition: Stable Instructions: ED Wound Infec After Surgery Prescriptions: Oxycodone HCl/Acetaminophen [Percocet 5-325 mg Tablet] 1 - 2 each PO Q6H PRN #14 tablet PRN Reason: pain Comments: Your case has been discussed with Dr. Dailey, the orthopedic surgeon commercial litigation attorney. He has suggested the dose of IV antibiotics we gave you tonight, as well as another dose here in the emergency department tomorrow evening. Then, on Sunday, he would like you to follow-up in the clinic and preferably see Dr. Lara, though Dr. Dailey can see you also if Dr. Lara is not able to. At that time, they will recheck your hand and see how things are going and decide what may need to be done next. If your hand is getting noticeably worse before tomorrow evening, then you should come back sooner. You may take the hydrocodone as needed for pain.
[2020-02-07 23:39] LABS: ALBUMIN 4.1 g/dL (3.2-5.5); ALBUMIN/GLOBULIN RATIO 1.4 (1.0-2.2); BILIRUBIN,TOTAL 0.2 mg/dL (0.2-1.0); CALCIUM 9.1 mg/dL (8.5-10.3); CREATININE 0.8 mg/dL (0.4-1.0)
[2020-02-07 23:44] LABS: DIFFERENTIAL COMMENT MANUAL DIFFERENTIAL; EOSINOPHILS # (MANUAL) 1.1 10^3/uL (0-0.7); LYMPHOCYTES # (MANUAL) 2.4 10^3/uL (1.5-3.5); LYMPHOCYTES % (MANUAL) 25 %; MONOCYTES # (MANUAL) 1.1 10^3/uL (0.0-1.0); PLATELET ESTIMATE, MANUAL NORMAL (130-450,000) (NORMAL); PLATELET MORPHOLOGY NORMAL APPEARANCE (NORMAL); RBC MORPHOLOGY (MULTIPLE) NORMAL APPEARANCE (NORMAL)
[2020-02-07] MEDS ORDERED: HYDROcod/ACET 5/325 Prepack 4 PO STA (23:59)
[2020-02-08] MEDS ORDERED: oxyCODONE/ACET 5/325 Prepack 4 PO STA (00:15)
[2020-02-08 00:25] VITALS: BP 145/97
== END 2020-02-08 00:22 | disposition home or self-care (01) ==
LOC: ED 22:14
DX: T81.41XA Infection following a procedure, superficial incisional surgical site, initial encounter (principal); Y83.8 Other surgical procedures as the cause of abnormal reaction of the patient, or of later complication, without mention of misadventure at the time of the procedure
CPT/HCPCS: 36415; 80053; 83690; 85025; 87040; 96365; 96375; 99284; 99285; J1170

== ENCOUNTER 2020-02-08 19:49 | Emergency (ER) | payer OTHER, MEDICAID ==
[2020-02-08] MEDS ORDERED: cefTRIAXone 2 GM in SODIUM CHLORIDE 0.9% MINIBAG 100 ML IV STA (20:02)
[2020-02-08] MEDS ORDERED: cefTRIAXone 2 GM VIAL ONE (20:29)
[2020-02-08 20:48] LABS: BASOPHILS # (AUTO) 0.1 10^3/uL (0.0-0.1); BASOPHILS % (AUTO) 0.9 %; EOSINOPHILS # (AUTO) 1.7 10^3/uL (0.0-0.7); EOSINOPHILS % (AUTO) 15.3 %; HGB - HEMOGLOBIN 12.8 g/dL (12.0-16.0); LYMPHOCYTES # (AUTO) 2.6 10^3/uL (1.5-3.5); LYMPHOCYTES % (AUTO) 22.9 %; MEAN CORPUSCULAR HGB CONC 32.7 g/dL (32.0-36.0); MEAN CORPUSCULAR VOLUME 91.8 fL (81.0-99.0); MONOCYTES # (AUTO) 0.8 10^3/uL (0.0-1.0); MONOCYTES % (AUTO) 7.4 %; NEUTROPHILS % (AUTO) 53.1 %; PLT - PLATELET COUNT 382 10^3/uL (130-450); RED BLOOD COUNT 4.27 10^6/uL (4.20-5.40); RED CELL DISTRIBUTION WIDTH 13.4 % (12.0-15.0); WHITE BLOOD COUNT 11.3 x10^3/uL (4.8-10.8)
[2020-02-08] MEDS ORDERED: KETOROLAC 30 MG/ML VIAL IVP STA (20:49)
[2020-02-08] MEDS ORDERED: HYDROmorphone 1 MG/ML CARPUJECT IVP STA (20:49)
--- NOTE | 2020-02-08 20:52 | ED Physician Documentation ---
History of Present Illness - Stated complaint Stated Complaint: INFUSION - Chief complaint Chief Complaint: General - History obtained from History obtained from: Patient - Additonal information Additional information: About a month ago she had a carpal tunnel release on the right which was complicated by an infection. She was getting better and then was seen last night for what seemed like a recurrent infection in that hand. She was given Rocephin and the case was discussed by phone with Dr. Dailey by the emergency physician last night who recommended that she return tonight for another dose of Rocephin and she returns as directed. She states is really no different than last night, not better but not worse either. Percocet is not helping the pain. She did get relief with Toradol and Dilaudid last night. 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 HEENT:  Derm: Other - Present Medications Home Medications: Ambulatory Orders Medication Instructions Recorded Confirmed Valacyclovir HCl [Valtrex] 500 mg ORAL DAILY 11/09/13 01/17/20 Omeprazole 20 mg PO DAILY 01/26/15 01/17/20 Losartan Potassium 50 mg PO DAILY 01/08/20 01/17/20 Methocarbamol [Robaxin-750] 750 mg PO TID PRN 01/08/20 01/17/20 Multivitamin 1 each PO DAILY 01/08/20 01/17/20 metFORMIN [Glucophage] 500 mg PO BIDWM 01/08/20 01/17/20 Ketorolac [Toradol] 10 mg PO Q6H PRN #10 tablet 02/08/20 Oxycodone HCl/Acetaminophen 1 - 2 each PO Q6H PRN #14 tablet 02/08/20 [Percocet 5-325 mg Tablet] - Allergies Allergies/Adverse Reactions: Allergies Allergy/AdvReac Type Severity Reaction Status Date / Time ibuprofen Allergy stomach Verified 01/16/20 14:45 ulcers mussels Allergy Anaphylaxis Verified 01/16/20 14:45 tramadol Allergy Itching Verified 01/16/20 14:45 hydrocodone bitartrate * AdvReac Itching Verified 01/16/20 14:45 [From Vicodin] salmon Allergy Anaphylaxis Uncoded 01/16/20 14:45 surgical tape AdvReac Rash Uncoded 01/16/20 19:25 - Social History Does the pt smoke?: No Smoking Status: Never smoker Does the pt drink ETOH?: Yes Does the pt have substance abuse?: No - Immunizations Immunizations are current?: No Immunizations: TDAP current <10years - POLST Patient has POLST: No PD ED PE NORMAL - Vitals Vital signs reviewed: Yes - General General: Alert and oriented X 3, No acute distress - Extremities Extremities: Other (There is a healed carpal tunnel release on the right, there are 3 areas of just very minor dehiscence with mild surrounding redness. From the proximalmost one I am able to express may be just a microdot of material, too small to tell if it is purulent. No limited range of motion.) - Neuro Neuro: Alert and oriented X 3, Normal speech - Psych Psych: Normal mood, Normal affect Results - Vitals Vitals: Vital Signs - 24 hr 02/08/20 02/08/20 20:14 21:23 Temperature 37.1 C 37.0 C Heart Rate 81 80 Respiratory 18 16 Rate Blood Pressure 126/50 L 124/56 L O2 Saturation 97 98 Oxygen O2 Source Room air - Labs Labs: Laboratory Tests 02/08/20 20:40 WBC 11.3 H RBC 4.27 Hgb 12.8 Hct 39.2 MCV 91.8 MCH 30.0 MCHC 32.7 RDW 13.4 Plt Count 382 MPV 10.0 Neut # (Auto) 6.0 Lymph # (Auto) 2.6 Saline # (Auto) 0.8 Eos # (Auto) 1.7 H Baso # (Auto) 0.1 Absolute Nucleated RBC 0.00 Band Neuts % (Manual) Not Reportable Abnorm Lymph % (Manual) Not Reportable Nucleated RBC % 0.0 Neutrophils # (Manual) Not Reportable Lymphocytes # (Manual) Not Reportable Monocytes # (Manual) Not Reportable Eosinophils # (Manual) Not Reportable Basophils # (Manual) Not Reportable Differential Comment MANUAL=AUTO DIFF Platelet Estimate NORMAL (130-450,000) Platelet Morphology NORMAL APPEARANCE RBC Morph Micro Appear NORMAL APPEARANCE PD MEDICAL DECISION MAKING - ED course ED course: 39-year-old woman with represents as directed for redosing of Rocephin and she is given 2 g here as well as some more Toradol and Dilaudid. She understands the need to follow-up with Dr. Dailey tomorrow as previously discussed. Subsequently one of the other sites opened up just a bit so a second culture was done from the middle. Departure - Departure Disposition: 01 Home, Self Care Clinical Impression: Post op infection Qualifiers: Encounter type: initial encounter Postoperative infection type: unspecified type Qualified Code(s): T81.40XA - Infection following a procedure, unspecified, initial encounter Condition: Good Record reviewed to determine appropriate education?: Yes Instructions: ED Infec Skin Cellulitis Prescriptions: Ketorolac [Toradol] 10 mg PO Q6H PRN #10 tablet PRN Reason: Pain Comments: Go to the [facility] tomorrow around [address] Dailey. Return if worsening otherwise. Discharge Date/Time: 02/08/20 21:23
[2020-02-08 21:25] VITALS: BP 124/56
[2020-02-08 21:26] LABS: DIFFERENTIAL COMMENT MANUAL=AUTO DIFF; PLATELET ESTIMATE, MANUAL NORMAL (130-450,000) (NORMAL); PLATELET MORPHOLOGY NORMAL APPEARANCE (NORMAL); RBC MORPHOLOGY (MULTIPLE) NORMAL APPEARANCE (NORMAL)
== END 2020-02-08 21:23 | disposition home or self-care (01) ==
LOC: ED 19:49
DX: T81.41XA Infection following a procedure, superficial incisional surgical site, initial encounter (principal); Y83.8 Other surgical procedures as the cause of abnormal reaction of the patient, or of later complication, without mention of misadventure at the time of the procedure
CPT/HCPCS: 36415; 85025; 87070; 87181; 87205; 96365; 96375; 99283; 99284; J1170

== ENCOUNTER 2020-02-24 08:00 | Outpatient (CLI) | payer OTHER, MEDICAID | END 2020-02-24 23:59 | disposition home or self-care (01) | LOC: LAB.R 08:00 | PROVIDERS: ATTEND Obstetrics & Gynecology | DX: N76.0 Acute vaginitis (principal) | CPT/HCPCS: 81599; 87491; 87591 ==

== ENCOUNTER 2020-02-27 07:00 | Outpatient (CLI) | payer OTHER, MEDICAID | END 2020-02-27 23:59 | disposition home or self-care (01) | LOC: COV 07:00 | PROVIDERS: ATTEND Obstetrics & Gynecology | DX: Z01.812 Encounter for preprocedural laboratory examination (principal); E28.2 Polycystic ovarian syndrome; N94.4 Primary dysmenorrhea; E11.9 Type 2 diabetes mellitus without complications; Z20.822 Contact with and (suspected) exposure to COVID-19 ==

== ENCOUNTER 2020-03-01 13:05 | Outpatient (CLI) | payer OTHER, MEDICAID ==
[2020-03-01 13:26] LABS: BASOPHILS # (AUTO) 0.1 10^3/uL (0.0-0.1); BASOPHILS % (AUTO) 0.8 %; EOSINOPHILS # (AUTO) 0.5 10^3/uL (0.0-0.7); EOSINOPHILS % (AUTO) 6.3 %; HGB - HEMOGLOBIN 13.5 g/dL (12.0-16.0); LYMPHOCYTES % (AUTO) 24.6 %; MEAN CORPUSCULAR HEMOGLOBIN 29.2 pg (27.0-31.0); MEAN CORPUSCULAR HGB CONC 33.2 g/dL (32.0-36.0); MEAN CORPUSCULAR VOLUME 88.1 fL (81.0-99.0); MEAN PLATELET VOLUME 9.8 fL (7.9-10.8); MONOCYTES # (AUTO) 0.5 10^3/uL (0.0-1.0); MONOCYTES % (AUTO) 6.7 %; NEUTROPHILS # (AUTO) 4.9 10^3/uL (1.5-6.6); NEUTROPHILS % (AUTO) 61.2 %; PLT - PLATELET COUNT 431 10^3/uL (130-450); RED BLOOD COUNT 4.62 10^6/uL (4.20-5.40); RED CELL DISTRIBUTION WIDTH 13.1 % (12.0-15.0); WHITE BLOOD COUNT 7.9 x10^3/uL (4.8-10.8)
[2020-03-01 13:51] LABS: HEMOGLOBIN A1c% 5.2 % (4.27-6.07)
== END 2020-03-01 13:06 | disposition home or self-care (01) ==
LOC: LAB 13:05
PROVIDERS: ATTEND Obstetrics & Gynecology
DX: Z01.812 Encounter for preprocedural laboratory examination (principal); E28.2 Polycystic ovarian syndrome; N94.4 Primary dysmenorrhea
CPT/HCPCS: 36415; 83036; 85025; 86850; 86900; 86901

== ENCOUNTER 2020-03-05 06:16 | Day surgery (SDC) | payer OTHER, MEDICAID ==
[2020-03-05] MEDS ORDERED: LACTATED RINGERS 1,000 ML IV ONE ×3 (06:20→11:23)
[2020-03-05] MEDS ORDERED: CELECOXIB 100 MG CAPSULE PO ONE (06:37)
[2020-03-05] MEDS ORDERED: GABAPENTIN 400 MG CAPSULE ONE (06:37)
[2020-03-05] MEDS ORDERED: PHENAZOPYRIDINE 100 MG TABLET PO ONE (06:37)
[2020-03-05] MEDS ORDERED: ACETAMINOPHEN 1,000 MG/100 ML 100 ML IV ONE (06:38)
[2020-03-05] MEDS ORDERED: ceFAZolin 2 GM/50 ML 2 GM/50 ML BAG IV ONE (06:38)
[2020-03-05 06:55] LABS: HCG UR QUAL NEGATIVE
[2020-03-05] MEDS ORDERED: MIDAZOLAM 2 MG/2 ML VIAL ONE (07:17)
[2020-03-05] MEDS ORDERED: LIDOCAINE-MPF 2% 5 ML VIAL ONE (07:18)
[2020-03-05] MEDS ORDERED: PROPOFOL 200 MG/20 ML VIAL IVP ONE ×2 (07:18→10:34)
[2020-03-05] MEDS ORDERED: ROCURONIUM 50 MG/5 ML VIAL ONE (07:18)
--- NOTE | 2020-03-05 07:18 | ANESTHESIA ---
Pre-Anesthesia VS, & Labs - Diagnosis dysmenorrhea - Procedure LVH Vital Signs: Temp Pulse Resp BP Pulse Ox 36.5 C 89 12 152/117 H 99 03/05/20 06:21 03/05/20 06:21 03/05/20 06:21 03/05/20 06:21 03/05/20 06:21 Height: 5 ft 4 in Weight (kg): 95.3 kg Body Mass Index: 36.0 BMI Classification: Obese - Is Patient ?: No Home Medications and Allergies Valacyclovir HCl [Valtrex] 500 mg ORAL DAILY 11/09/13 Omeprazole 20 mg PO DAILY 01/26/15 Losartan Potassium 50 mg PO DAILY 01/08/20 Methocarbamol [Robaxin-750] 750 mg PO TID PRN 01/08/20 Multivitamin 1 each PO DAILY 01/08/20 Allergies/Adverse Reactions: Allergies Allergy/AdvReac Type Severity Reaction Status Date / Time ibuprofen Allergy stomach Verified 01/16/20 14:45 ulcers mussels Allergy Anaphylaxis Verified 01/16/20 14:45 tramadol Allergy Itching Verified 01/16/20 14:45 hydrocodone bitartrate * AdvReac Itching Verified 01/16/20 14:45 [From Vicodin] salmon Allergy Anaphylaxis Uncoded 01/16/20 14:45 surgical tape AdvReac Rash Uncoded 01/16/20 19:25 Anes History & Medical History - Anesthetic History Anesthesia Complications: reports: Post-Operative Nausea/Vomiting Family history of Anesthesia Complications: Denies Family history of Malignant Hyperthermia: Denies - Medical History Cardiovascular: reports: None, Hypertension Pulmonary: reports: Asthma Gastrointestinal: reports: GERD, Cholelithiasis Urinary: reports: None Musculoskeletal: reports: Chronic back pain Endocrine/Autoimmune: denies: Type 2 diabetes Skin: reports: None Smoking Status: Never smoker - Surgical History General: Cholecystectomy Eyes Ears Nose Throat (EENT):  Gynecologic: section Orthopedic: Carpal Tunnel surgery Dermatologic: Other Exam General: Alert, Oriented x3, Cooperative Mouth Openin Fingerbreadth Neck Mobility: Normal Mallampati classification: II Thyromental Distance: 4-6 cm Respiratory: Lungs clear Cardiovascular: Regular rate, Normal S1, Normal S2, No murmurs Abdomen: Normal bowel sounds, Soft, No tenderness, No hepatospenomegaly, No masses Extremities: No clubbing, No cyanosis, No edema, Normal pulses, No tenderness/swelling Neurological: Normal gait, Normal speech, Strength at 5/5 X4 ext, Normal tone, Sensation intact, Cranial nerves 3-12 NL, Reflexes 2+ Mental/Cognitive Status: Alert/Oriented X3, Normal for patient Cognitive Status: Within normal limits Plan Anesthesia Type: General Consent for Procedure(s) Verified and Reviewed: Yes Code Status: Attempt Resuscitation ASA classification: 2-Mild systemic disease Is this case an emergency?: No
[2020-03-05] MEDS ORDERED: ONDANSETRON 4 MG/2 ML VIAL IVP PRN (07:19)
[2020-03-05] MEDS ORDERED: diphenhydrAMINE INJ 50 MG/ML VIAL IVP PRN (07:19)
[2020-03-05] MEDS ORDERED: ePHEDrine 50 MG/ML VIAL IVP PRN (07:19)
[2020-03-05] MEDS ORDERED: ALBUTEROL NEB 2.5 MG/3 ML INH PRN (07:19)
[2020-03-05] MEDS ORDERED: NALOXONE 0.4 MG/ML VIAL IVP PRN (07:19)
[2020-03-05] MEDS ORDERED: ATROPINE ABBOJECT 1 MG/10 ML SYRINGE IVP PRN (07:19)
[2020-03-05] MEDS ORDERED: SCOPOLAMINE PATCH TOP ONE (07:34)
[2020-03-05] MEDS ORDERED: BUPIVACAINE 0.25% PF 30 ML VIAL ONE (07:47)
[2020-03-05] MEDS ORDERED: DEXAMETHASONE 4 MG/ML VIAL ONE (07:49)
[2020-03-05] MEDS ORDERED: METHYLENE BLUE 0.5% 50 MG/10 ML AMPULE ONE (07:51)
[2020-03-05] MEDS ORDERED: LACTATED RINGERS 1,000 ML IV SCH ×2 (08:00→12:00)
[2020-03-05] MEDS ORDERED: SCOPOLAMINE PATCH TOP SCH (08:00)
[2020-03-05] MEDS ORDERED: BUPIVACAINE 0.25% PF 30 ML VIAL SUBQ ONE ×2 (08:38)
[2020-03-05] MEDS ORDERED: METHYLENE BLUE 0.5% 50 MG/10 ML AMPULE IR ONE (08:39)
[2020-03-05] MEDS ORDERED: NEOSTIGMINE 1 MG/1 ML 10 ML MDV ONE (10:17)
[2020-03-05] MEDS ORDERED: GLYCOPYRROLATE 1 MG/5 ML VIAL ONE (10:17)
--- NOTE | 2020-03-05 10:40 | OPERATIVE REPORT ---
Operative Report - General Procedure Date: 03/05/20 Planned Procedure: Total laparoscopic hysterectomy with bilateral salpingectomy and cystoscopy Pre-Op Diagnosis: Dysfunctional uterine bleeding and pelvic pain Procedure Performed: Total laparoscopic hysterectomy with bilateral salpingectomy and cystoscopy Post Op Diagnosis: Same - Procedure Note Primary Surgeon: Kelly Salter MD Secondary Surgeon: Davon Hensley MD Anesthesia Provider: Deedee Smith CRNA Anesthesia Technique: General ET tube Pathology: Uterus with bilateral fallopian tubes and cervix IV Fluids (mL): 1,600 Estimated Blood Loss (mL): 25 Urine Output (mL): 1,300 Findings: Injected and dilated pelvic vessels. Normal appearing uterus with boggy texture and anterior scarring along the bladder flap. Small omental adhesion along the anterior abdominal wall. Normal appearing tubes and ovaries. Small peritubal cyst on the right. Cystoscopy showed bilateral ureteral jets and intact bladder mucosa without injury of suture noted on survey Complications: None - Other Other Information/Narrative: Risks benefits and alternatives of the procedure were reviewed. Consent was again confirmed. Patient was brought to the operating room and underwent general anesthesia. She was placed in dorsal lithotomy position with legs resting in yellowfin stirrups. SCDs were in place and activated. Cefazolin 2 g IV was administered prior to start of procedure. She was prepped and draped in the usual sterile fashion. Surgical timeout was performed. Bimanual exam was performed. Sterile speculum was placed. The cervix was visualized and a total of 10 cc of 0.25% bupivicaine with epinephrine was injected into the uterosacral ligaments. The [employer] uterine manipulator was placed, confirming that the cup was flush with the vaginal fornices. It was attached to the Ally uterine positioning system. Mccormick catheter was placed, the bladder was drained, and the bladder was then back filled with 50 cc of dilute methylene blue. The catheter was then clamped. The base of the umbilicus was anesthetized with intradermal injection of 0.25% Marcaine. A 5 mm skin incision was made with a scalpel. A 5 mm blunt trocar was inserted under direct visualization using IncellDxiport. Once the port was confirmed to be placed intraperitoneally, the abdomen was insufflated to 15 mmHg with CO2 gas Exploration of the abdomen and pelvis was confirmed that no injury was sustained with placement of the trocar. Two additional 5 mm ports were placed in the right and left lower quadrants, taking care to avoid the epigastric arteries, while under direct visualization via laparoscopic guidance. The abdomen was explored with the laparoscope, with findings as noted. The left fallopian tube was grasped and elevated at the fimbriated end. The underlying mesosalpinx was sealed and resected to the insertion point on the uterine cornua using the Ligasure device. The round ligament on the left aspect of the uterus was sealed/transected/and divided. The uterine ovarian ligament was transected using the LigaSure bipolar device. A bladder flap was mobilized by dividing the round ligaments using the bipolar cutting forceps, and the peritoneum on the vesicouterine fold was incised to mobilize the bladder. Once the colpotomy ring was skeletonized and in position, the uterine arteries were sealed using the bipolar forceps at the level of the colpotomy ring. This was repeated on the right aspect of the uterus in the same manner. The bladder dissection was performed over the colpotomy ring. The bladder filled quickly with the clamp in place and began interfere with the surgical field. The bladder was thus unclamped and the methylene blue dye was drained from the bladder. No drainage was noted in the field prior to the drainage. Colpotomy was performed using monopolar hook, resulting in separation of the uterus. The uterus was then delivered through the vagina. Attention was then turned to the vaginal cuff closure. The right lower quadrant port was removed and the incision was extended to accommodate a 10 mm port. The 5 mm port was replaced with a 10 mm port. V-Loc suture was passed throught the port. The vaginal cuff was closed with a running suture using V-Loc suture. Closure of the cuff was airtight and abdominal insufflation was maintained post closure. Good hemostasis was noted. The vaginal cuff was visualized internally and noted to have good hemostasis. Jose Ramon-Hector device was placed in the 10 mm port site, which was then closed under direct visualization. The abdomen was partially desufflated. Pedicles were observed under decreased pressure and good hemostasis was again confirmed. Abdomen was then completely desufflated. All instruments were removed from the abdomen. Skin was closed with interrupted subcuticular stitches using 4-0 Monocryl. Dermabond was applied over the suture sites. We then turned our attention to the cystoscopic portion of the procedure. Mccormick catheter was removed and the cystoscope was inserted. Bladder was instilled with NS. A survey of the bladder showed no trauma or presence of suture in the bladder topography. Patient had been pretreated with pyridium. Vigorous ureteral jets were observed bilaterally. Cystoscope was removed after bladder was drained. Mccormick catheter was replaced. The final sponge needle and instrument counts were correct at completion of the procedure patient was awakened taken to the postanesthesia care unit in stable condition. Dr. Hensley assisted with suturing, retraction, and completion of their side of the hysterectomy.
[2020-03-05] MEDS: fentaNYL 100 MCG/2 ML VIAL IVP PRN ×4 (10:53→12:21)
[2020-03-05] MEDS ORDERED: fentaNYL 100 MCG/2 ML VIAL ONE ×2 (11:01→12:17)
[2020-03-05] MEDS ORDERED: ONDANSETRON ODT 4 MG TABLET TL PRN (11:28)
[2020-03-05] MEDS ORDERED: SIMETHICONE CHEW 80 MG TABLET PO PRN (11:28)
[2020-03-05] MEDS ORDERED: SCOPOLAMINE PATCH TOP PRN (11:28)
[2020-03-05] MEDS ORDERED: diphenhydrAMINE INJ 50 MG/ML VIAL ONE (11:29)
[2020-03-05] MEDS: ACETAMINOPHEN 500 MG TABLET PO SCH ×2 (13:59→20:35)
[2020-03-05] MEDS: oxyCODONE 5 MG TABLET PO PRN ×2 (14:00→18:36)
[2020-03-05] MEDS ORDERED: GABAPENTIN 300 MG CAPSULE PO SCH (14:00)
[2020-03-05] MEDS: KETOROLAC 30 MG/ML VIAL IVP SCH ×2 (14:01→17:47)
--- NOTE | 2020-03-05 15:13 | ANESTHESIA POST OP EVALUATION ---
Anesthesia Post Eval - Post Anesthesia Eval Vitals: Last Vital Signs Temp 37.9 C 03/05/20 14:44 Pulse 88 03/05/20 14:44 Resp 14 03/05/20 14:44 BP 146/85 H 03/05/20 14:30 Pulse Ox 98 03/05/20 14:44 CV Function Including HR & BP: positive: Stable Pain Control: positive: Satisfactory Nausea & Vomiting: positive: Negative Mental Status: positive: Baseline Respiratory Status: Airway Patent Hydration Status: Satisfactory Anesthesia Complications: positive: None
[2020-03-05] MEDS: HYDROmorphone 1 MG/ML CARPUJECT IVP PRN ×2 (16:01→20:23)
[2020-03-05 19:30] VITALS: BP 134/78
[2020-03-05] MEDS ORDERED: DOCUSATE SODIUM 100 MG CAPSULE PO SCH (21:00)
[2020-03-06] MEDS ORDERED: ENOXAPARIN 40 MG/0.4 ML SYRINGE SUBQ SCH (09:00)
== END 2020-03-05 20:49 | disposition home or self-care (01) ==
LOC: SDS 06:16 → OBS 13:42 → SDS 20:49
PROVIDERS: ATTEND Obstetrics & Gynecology
PROC: 0UT74ZZ Resection of Bilateral Fallopian Tubes, Percutaneous Endoscopic Approach (ICD-10-PCS; 2020-03-05)
PROC: 0UT94ZZ Resection of Uterus, Percutaneous Endoscopic Approach (ICD-10-PCS; principal; 2020-03-05 07:30)
DX: N94.4 Primary dysmenorrhea (principal); N83.8 Other noninflammatory disorders of ovary, fallopian tube and broad ligament; I10 Essential (primary) hypertension; J45.909 Unspecified asthma, uncomplicated; E11.9 Type 2 diabetes mellitus without complications; K21.9 Gastro-esophageal reflux disease without esophagitis; G89.29 Other chronic pain; M54.9 Dorsalgia, unspecified; G43.109 Migraine with aura, not intractable, without status migrainosus; E66.9 Obesity, unspecified; Z68.36 Body mass index [BMI] 36.0-36.9, adult; B00.1 Herpesviral vesicular dermatitis; Z79.51 Long term (current) use of inhaled steroids; Z79.84 Long term (current) use of oral hypoglycemic drugs; Z79.899 Other long term (current) drug therapy
CPT/HCPCS: 58571; 81025; 86850; 86900; 86901; 94640; A9270; J0131; J0690; J1170; J1200; J3490; J7120

== ENCOUNTER 2020-03-17 15:38 | Emergency (ER) | payer OTHER, MEDICAID ==
[2020-03-17 15:45] VITALS: BP 153/100
[2020-03-17 15:58] LABS: BILIRUBIN,URINE NEGATIVE (NEGATIVE); GLUCOSE, URINE (UA) NEGATIVE (NEGATIVE); KETONES,URINE (UA) NEGATIVE (NEGATIVE); LEUKOCYTE ESTERASE, URINE NEGATIVE (NEGATIVE); NITRITE,URINE NEGATIVE (NEGATIVE); OCCULT BLOOD,URINE NEGATIVE (NEGATIVE); PROTEIN,URINE NEGATIVE (NEGATIVE); UROBILINOGEN,URINE 0.2 (NORMAL) E.U./dL (NORMAL)
[2020-03-17 16:02] LABS: CLARITY,URINE CLEAR (CLEAR)
== END 2020-03-17 16:12 | disposition left against medical advice (07) ==
LOC: ED 15:38
DX: Z53.21 Procedure and treatment not carried out due to patient leaving prior to being seen by health care provider (principal)
CPT/HCPCS: 80053; 81001; 81003; 83690; 85025; 87086; 99283

== ENCOUNTER 2020-03-23 08:47 | Outpatient (CLI) | payer OTHER, MEDICAID ==
[2020-03-23 09:27] VITALS: BP 129/94
--- NOTE | 2020-03-23 09:27 | SLEEP CARE CONSULTATION ---
Information from patient questionnaire entered by Rosie Zambrano. I have reviewed and concur with the information entered by Rosie Zambrano. This document represents the service I personally performed and the decisions made by me, Eboni Kenney ARNP. History of Present Illness Service Date and Time: 03/23/2020 0847 Reason for Visit: New patient Chief Complaint: reports: Unrefreshed sleep, Snoring, Excessive daytime sleepiness, Observed pauses in breathing, Fatigue Date of Onset: years Usual bedtime: 10:30 pm (fall asleep by midnight) Time it takes to fall asleep: not long Snores at night: Yes (to the point where I wake myself) Observed to quit breathing while asleep: No Sleeps alone due to snoring: No Number of times waking at night: 3-4 Reasons for waking at night: reports: Snoring. denies: Choking, Gasping for air Toss, Turn, or Twitch while sleeping: Yes Recalls having dreams: No Usually gets out of bed at: 9 am Feels refreshed in the morning: No Morning headache: No Sleepy or fatigued during the day: Yes Ever fallen asleep while driving: No Takes day naps: No Dreams during day naps: No Prior sleep studies: No Additional HPI information: I had the pleasure of seeing ELLIS MABRY today regarding the possibility of her having a sleep disorder. Her current complaints are unrefreshed sleep, snoring and fatigue. She talked to her doctor about her snoring that is very loud, "like a freight train" according to her . She does not wake up feeling rested and is tired during the day. She has issues with remembering short term things and has occasional restless feelings in her legs. She states she is a very restless sleeper and is always moving her legs prior to getting to sleep. She thinks her grandmother had a machine for sleep apnea and her mother snores but is not diagnosed. She has a history of hypertension, asthma, gastric reflux, anxiety and depression. - Parasomnia Symptoms Ever been unable to move upon waking from sleep: Yes Walks in sleep: No Talks in sleep: Yes Ever acted out dreams in sleep: No Ever felt weak in the knees when startled or emotional: Yes Bothered by creepy, crawly, restless sensations in legs: Yes (sometimes; usually at night) Problems with memory or concentration: Yes (memory, short term) Subjective Initial [place] Sleepiness Scale score: 4 (in 2020) Past Medical History Past Medical History: reports: Hypertension, Anxiety, Asthma, Depression, GERD, Other (pain (lower back and knees)) Social History The patient's occupation is a Not Employed. Patient is and lives in [place]. Have you smoked in the past 12 months: No Alcohol use: Yes Alcohol amount and frequency: on occasion Caffeine use: Yes Caffeine amount and frequency: energy drink a day in mornings Family History Family history of sleep disordered breathing: Yes Family Hx Sleep Apnea: Mother: Snoring, Grandparent: Snoring, Sleep apnea - Treated Allergies and Home Medications Drug allergies reviewed: Yes (ibuprfen, tramadol, tape) Home medication list reviewed: Yes Allergy and home medication list: Valtrex Omeprazole Losartan Oxycodone, prn Methocarbomal Review of Systems Weight gain over past 5 years: 15 Cardiovascular: reports: high blood pressure Respiratory: reports: shortness of breath, wheeze Gastrointestinal: reports: heartburn, diarrhea, abdominal pain Urinary: reports: frequency Neurological: reports: headaches Psychiatric: reports: anxiety, depression, mood disorder Ear/Nose/Throat: reports: nasal congestion, sinus problems, dry mouth/throat, wisdom teeth removed. denies: tonsillectomy Endocrine: reports: sluggishness, too hot or cold, excessive thirst, increased urination, unexplained weakness Musculoskeletal: reports: joint pain, back pain, muscle pain or cramping Immunologic: reports: sneezing, allergies to food or environment (salmon) Physical Exam Blood Pressure: 129/94 Cuff size: wrist Heart Rate: 73 O2 Saturation: 98 Height: 5 ft 4 in Weight: 204 lb Body Mass Index: 35.0 BMI Classification: Obese Neck circumference: 14.5 (inches) Nostrils: patent to airflow Turbinates: boggy Mouth and throat: narrow oropharynx Hard palate: normal Uvula visualization: 25% Mallampati Class III Tongue: enlarged in size with teeth melvin on lateral edges Tonsils: 1+ Chin and jaw: normal size and position Neck: normal w/o lymphadenopathy or thyromegaly Heart: regular rate and rhythm Lungs: clear bilaterally Impression and Plan 1. Suspected Obstructive Sleep Apnea-Hypopnea Syndrome, as suggested by a history of loud and irregular snoring, observed cessation of breath while asleep, unrefreshed sleep, cognitive impairment, and excessive daytime sleepiness. Narrow oropharynx and obesity are common predisposing factors for obstructive sleep apnea-hypopnea syndrome. I recommend proceeding to p olysomnography to confirm the diagnosis and to assess severity. If the patient has significant sleep disordered breathing, a manual CPAP titration study will also be performed to find the optimal treatment pressure. I informed the patient of what the sleep studies involve and after some discussion, obtained agreement to proceed. The pathophysiology of obstructive sleep apnea-hypopnea syndrome was discussed with the patient and health risks of cardiovascular and cerebrovascular disease if not treated. AAS brochure for obstructive sleep apnea-hypopnea syndrome given and reviewed. Risks of drowsy driving discussed in detail and patient advised to avoid long distance driving and to addictions recovery specialist at the first sign of drowsiness. Patient agreed to plan. * Schedule polysomnography +- manual CPAP titration study and return in 1-2 weeks after the study to discuss result and initiate therapy. * Avoid long distance driving or driving when feeling sleepy. * Avoid alcohol, sedative and muscle relaxant around bedtime. * Attempt to lose weight. * Review instructions provided by trained office staff on how to prepare for the sleep study. * Return for follow-up after sleep study completed. Counseling Topics: Weight loss health impact Visit Type: In Office Time Spent with Patient (minutes): 30 Provider Statement: I spent 100% of the Face to Face Visit with the patient with greater than 50% spent counseling the patient and coordination of care.
== END 2020-03-23 08:48 | disposition home or self-care (01) ==
LOC: SC 08:47
PROVIDERS: ATTEND Nurse Practitioner Family
DX: G47.10 Hypersomnia, unspecified (principal); R06.81 Apnea, not elsewhere classified; G47.8 Other sleep disorders; R41.89 Other symptoms and signs involving cognitive functions and awareness; R06.83 Snoring; E66.9 Obesity, unspecified; Z68.35 Body mass index [BMI] 35.0-35.9, adult
CPT/HCPCS: 99203; 99212

== ENCOUNTER 2020-04-20 10:13 | Outpatient (CLI) | payer OTHER, MEDICAID | END 2020-04-20 10:14 | disposition home or self-care (01) | LOC: SC 10:13 | PROVIDERS: ATTEND Nurse Practitioner Family | DX: Z53.9 Procedure and treatment not carried out, unspecified reason (principal) ==

== ENCOUNTER 2020-06-18 08:00 | Outpatient (CLI) | payer OTHER, MEDICAID | END 2020-06-18 23:59 | disposition home or self-care (01) | LOC: LAB.R 08:00 | PROVIDERS: ATTEND Orthopaedic Surgery | DX: Z01.812 Encounter for preprocedural laboratory examination (principal); Z20.822 Contact with and (suspected) exposure to COVID-19 ==

== ENCOUNTER 2020-06-23 11:00 | Day surgery (SDC) | payer OTHER, MEDICAID ==
[~2020-06-23 11:00] MED LIST: LIDOCAINE MPF 2%-EPI 1:200000 20 ML VIAL ONE; ceFAZolin 2 GM/50 ML 2 GM/50 ML BAG IV ONE
[2020-06-23] MEDS ORDERED: LACTATED RINGERS 1,000 ML IV ONE ×2 (11:08→12:47)
[2020-06-23] MEDS ORDERED: ONDANSETRON 4 MG/2 ML VIAL IVP PRN (11:38)
[2020-06-23] MEDS ORDERED: fentaNYL 100 MCG/2 ML VIAL IVP PRN (11:38)
[2020-06-23] MEDS ORDERED: METOCLOPRAMIDE 10 MG/2 ML VIAL IVP PRN (11:38)
[2020-06-23] MEDS ORDERED: HYDROmorphone 0.5 MG/0.5 ML SYRINGE IVP PRN (11:38)
[2020-06-23] MEDS ORDERED: ATROPINE ABBOJECT 1 MG/10 ML SYRINGE IVP PRN (11:38)
[2020-06-23] MEDS ORDERED: MORPHINE 2 MG/ML CARPUJECT IVP PRN (11:38)
[2020-06-23] MEDS ORDERED: ePHEDrine 50 MG/ML VIAL IVP PRN (11:38)
[2020-06-23] MEDS ORDERED: NALOXONE 0.4 MG/ML VIAL IVP PRN (11:38)
--- NOTE | 2020-06-23 11:38 | ANESTHESIA ---
Pre-Anesthesia VS, & Labs - Diagnosis left carpal tunnel syndrome - Procedure carpel tunnel release Vital Signs: Temp Pulse Resp BP Pulse Ox 36.2 C L 80 12 124/75 96 06/23/20 11:08 06/23/20 11:08 06/23/20 11:08 06/23/20 11:08 06/23/20 11:08 Height: 5 ft 4 in Weight (kg): 84.3 kg Body Mass Index: 31.8 BMI Classification: Obese - NPO >8 hours - Is Patient ?: No - Lab Results Lab results reviewed: Yes Home Medications and Allergies Valacyclovir HCl [Valtrex] 500 mg ORAL DAILY 11/09/13 Omeprazole 20 mg PO DAILY 01/26/15 Losartan Potassium 50 mg PO DAILY 01/08/20 Methocarbamol [Robaxin-750] 750 mg PO TID PRN 01/08/20 Multivitamin 1 each PO DAILY 01/08/20 Allergies/Adverse Reactions: Allergies Allergy/AdvReac Type Severity Reaction Status Date / Time ibuprofen Allergy stomach Verified 03/17/20 15:43 ulcers mussels Allergy Anaphylaxis Verified 03/17/20 15:43 tramadol Allergy Itching Verified 03/17/20 15:43 adhesive tape AdvReac Rash Verified 03/17/20 15:43 hydrocodone bitartrate * AdvReac Itching Verified 03/17/20 15:43 [From Vicodin] salmon oil AdvReac Rash Verified 03/17/20 15:43 Anes History & Medical History - Anesthetic History Anesthesia Complications: reports: No previous complications Family history of Anesthesia Complications: Denies Family history of Malignant Hyperthermia: Denies - Medical History Cardiovascular: reports: Hypertension Pulmonary: reports: Asthma Gastrointestinal: reports: GERD, Ulcers, Cholelithiasis Urinary: reports: None Musculoskeletal: reports: Chronic back pain Endocrine/Autoimmune: reports: None Skin: reports: None Smoking Status: Never smoker - Surgical History General: reports: Cholecystectomy Eyes Ears Nose Throat (EENT): Gynecologic: reports: section, Hysterectomy Orthopedic: reports: Carpal Tunnel surgery Dermatologic: reports: Other Exam General: Alert, Oriented x3, Cooperative, No acute distress Dental: WNL Mouth Openin Fingerbreadth Neck Mobility: Normal Mallampati classification: I Respiratory: Lungs clear, Normal breath sounds, No respiratory distress, No accessory muscle use Cardiovascular: Regular rate, Normal S1, Normal S2, No murmurs Plan Anesthesia Type: MAC Consent for Procedure(s) Verified and Reviewed: Yes Code Status: Attempt Resuscitation ASA classification: 2-Mild systemic disease Is this case an emergency?: No
[2020-06-23] MEDS ORDERED: PROPOFOL 200 MG/20 ML VIAL IVP ONE (11:54)
[2020-06-23] MEDS ORDERED: LIDOCAINE-MPF 2% 5 ML VIAL ONE ×2 (11:54→11:55)
[2020-06-23] MEDS ORDERED: fentaNYL 100 MCG/2 ML VIAL ONE (11:54)
[2020-06-23] MEDS ORDERED: MIDAZOLAM 2 MG/2 ML VIAL ONE (11:54)
[2020-06-23] MEDS ORDERED: BUPIVACAINE 0.25% PF 10 ML VIAL ONE (11:56)
[2020-06-23] MEDS ORDERED: KETAMINE 500 MG/10 ML VIAL ONE (11:57)
[2020-06-23] MEDS ORDERED: LACTATED RINGERS 1,000 ML IV SCH (12:00)
[2020-06-23] MEDS ORDERED: BUPIVACAINE 0.5%-EPI 1:200000 PF 30 ML VIAL ONE (12:17)
[2020-06-23] MEDS ORDERED: BUPIVACAINE 0.5%-EPI 1:200000 PF 30 ML VIAL SUBQ ONE ×2 (12:21)
[2020-06-23] MEDS ORDERED: BUPIVACAINE 0.25% PF 10 ML VIAL SUBQ ONE ×2 (12:22)
--- NOTE | 2020-06-23 12:36 | OPERATIVE REPORT ---
Operative Report - General Procedure Date: 06/23/20 Planned Procedure: Left left carpal tunnel release Pre-Op Diagnosis: Left carpal tunnel syndrome Procedure Performed: Left carpal tunnel release, CPT 97725 Post Op Diagnosis: Same as preoperative diagnosis - Procedure Note Primary Surgeon: Evan Lara MD Secondary Surgeon: Simone BARONE Anesthesia Provider: Rosie Monte CRNA Anesthesia Technique: Local, Moderate sedation Estimated Blood Loss (mL): 1 Indications: This is a 39-year-old woman with history of bilateral carpal tunnel syndrome not responding to nonoperative treatment. She has had a previous right carpal tunnel release with favorable outcome and now desires left carpal tunnel release. She had positive clinical findings consistent with left carpal tunnel syndrome preoperatively. Findings: There was a nonspecific tenosynovitis present. The median nerve appeared grossly normal. There were no masses within the carpal tunnel. Complications: None - Other Other Information/Narrative: The patient was brought to the operating room and placed in a supine position. The left arm was placed in a arm extension table. A pneumatic tourniquet had been applied to the proximal left arm over cast padding. The left upper extremity was prepped and draped in a sterile manner in the usual fashion. A timeout procedure was performed by the entire operating room team and all were in agreement. 8 cc of 0.5% marcaine with epinephrine was injected about the left carpal tunnel using a volar approach just proximal to the wrist flexor c rease, ulnar to the palmaris longus. An additional amount was injected subcutaneously. A longitudinal incision was made in line with the third webspace. The incision began just distal to the wrist flexor crease and extended for 2.5 cm. The subcutaneous tissue and palmar aponeurosis were divided in line with the incision. The transverse carpal ligament was identified proximally and was incised. A groove retractor was inserted beneath the transverse carpal ligament. The transverse carpal ligament was then divided from proximal to distal under direct visualization. The transverse carpal ligament was divided proximally with blunt tip scissors to achieve a full release of the carpal tunnel. The median nerve was inspected. The wound was irrigated. The skin was closed with 3-0 Monocryl subcuticular suture. A bulky hand dressing was applied to the left hand and wrist with mild compression. A pneumatic tourniquet was not utilized during the procedure. Hemostasis was achieved with electrocautery. The patient tolerated procedure well
--- NOTE | 2020-06-23 12:51 | ANESTHESIA POST OP EVALUATION ---
Anesthesia Post Eval - Post Anesthesia Eval Vitals: Last Vital Signs Temp 36.2 C L 06/23/20 11:08 Pulse 80 06/23/20 11:08 Resp 12 06/23/20 11:08 BP 124/75 06/23/20 11:08 Pulse Ox 96 06/23/20 11:08 CV Function Including HR & BP: Stable Pain Control: Satisfactory Nausea & Vomiting: Negative Mental Status: Baseline Respiratory Status: Airway Patent Hydration Status: Satisfactory Anesthesia Complications: None
[2020-06-23] MEDS ORDERED: KETOROLAC 15 MG/ML VIAL IVP STA (12:58)
[2020-06-23] MEDS ORDERED: oxyCODONE 5 MG TABLET PO PRN (12:58)
[2020-06-23 13:06] VITALS: BP 120/80
== END 2020-06-23 11:01 | disposition home or self-care (01) ==
LOC: SDS 11:00
PROVIDERS: ATTEND Orthopaedic Surgery
DX: G56.02 Carpal tunnel syndrome, left upper limb (principal); J45.909 Unspecified asthma, uncomplicated; I10 Essential (primary) hypertension; E66.9 Obesity, unspecified; Z68.31 Body mass index [BMI] 31.0-31.9, adult
CPT/HCPCS: 64721; J0690; J7120

== ENCOUNTER 2020-07-14 19:39 | Outpatient (CLI) | payer OTHER, MEDICAID | END 2020-07-14 19:40 | disposition critical access hospital (66) | LOC: EMS 19:39 | DX: R53.1 Weakness (principal); R11.0 Nausea; R42 Dizziness and giddiness | CPT/HCPCS: A0425; A0429 ==

== ENCOUNTER 2020-07-14 20:00 | Emergency (ER) | payer OTHER, MEDICAID ==
--- NOTE | 2020-07-14 20:08 | ED Physician Documentation ---
History of Present Illness - Stated complaint Stated Complaint: WEAK/ DIZZY/ NAUSEA - History obtained from History obtained from: Patient, EMS - History of Present Illness Timing: How many hours ago (approximately 1 hour [employer]) Improved by: lying down Worsened by: standing - Additonal information Additional information: BIBA for near-syncope. Patient says that she was at work and approximately 1 hour [employer], she rapidly developed generalized weakness, lightheadedness, diaphoresis. She also had n/v. She felt too weak to stand so she sat down on the floor. She felt like she might pass out and she says she might have had LOC for "a few seconds" (per patient). She feels better at the time of my HPI, although she feels tired and she says she has had 1 week of fatigue Review of Systems Constitutional: reports: Fatigue, Sweats. denies: Fever, Chills Eyes: reports: Reviewed and negative Cardiac: reports: Reviewed and negative Respiratory: reports: Reviewed and negative GI: reports: Nausea (nearly resolved by the time of this HPI), Vomiting (resolved [employer]). denies: Abdominal Pain, Constipation, Diarrhea : reports: Frequency, Hysterectomy. denies: Dysuria, Now EGA Musculoskeletal: reports: Reviewed and negative Neurologic: reports: Generalized weakness, Near syncope. 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: Ovarian cysts : None HEENT: None Psych: Depression, Anxiety Musculoskeletal: Chronic back pain Derm: None - Past Surgical History Past Surgical History: Yes General: Cholecystectomy Ortho: Carpal Tunnel surgery /LATHE ME[employer]IC: section, Hysterectomy HEENT:  Derm: Other - Present Medications Home Medications: Ambulatory Orders Medication Instructions Recorded Confirmed Valacyclovir HCl [Valtrex] 500 mg ORAL DAILY 11/09/13 06/23/20 Omeprazole 20 mg PO DAILY 01/26/15 06/23/20 Losartan Potassium 50 mg PO DAILY 01/08/20 06/23/20 Methocarbamol [Robaxin-750] 750 mg PO TID PRN 01/08/20 06/23/20 Multivitamin 1 each PO DAILY 01/08/20 06/23/20 Acetaminophen [Tylenol] 650 mg PO Q6H PRN #90 tablet 03/05/20 06/23/20 Naproxen [EC-Naprosyn] 500 mg PO Q12H PRN #60 tablet. 03/05/20 06/23/20 oxyCODONE [Roxicodone] 5 mg PO Q4-6H #15 tablet 06/23/20 Ondansetron Odt [Zofran] 4 mg TL Q6H PRN #10 tablet 07/14/20 - Allergies Allergies/Adverse Reactions: Allergies Allergy/AdvReac Type Severity Reaction Status Date / Time ibuprofen Allergy stomach Verified 07/14/20 20:08 ulcers mussels Allergy Anaphylaxis Verified 07/14/20 20:08 tramadol Allergy Itching Verified 07/14/20 20:08 adhesive tape AdvReac Rash Verified 07/14/20 20:08 hydrocodone bitartrate * AdvReac Itching Verified 07/14/20 20:08 [From Vicodin] salmon oil AdvReac Rash Verified 07/14/20 20:08 - Social History Does the pt smoke?: No Smoking Status: Never smoker Does the pt drink ETOH?: Yes Does the pt have substance abuse?: No - Immunizations Immunizations are current?: No Immunizations: TDAP current <10years - POLST Patient has POLST: No PD ED PE NORMAL - Vitals Vital signs reviewed: Yes - General General: Alert and oriented X 3, No acute distress, Well developed/nourished - HEENT HEENT: PERRL, EOMI, Moist mucous membranes - Neck Neck: Supple, no meningeal sign - Cardiac Cardiac: RRR, No murmur - Respiratory Respiratory: No respiratory distress, Clear bilaterally - Abdomen Abdomen: Soft, Non tender - Back Back: No CVA TTP - Derm Derm: Normal color, Warm and dry - Neuro Neuro: Alert and oriented X 3, assistant gm of content & delivery 2-12 intact, No motor deficit, No sensory deficit, Normal speech Eye Opening: Spontaneous Motor: Obeys Commands Verbal: Oriented GCS Score: 15 - Psych Psych: Normal mood, Normal affect Results - Vitals Vitals: Vital Signs - 24 hr 07/14/20 07/14/20 20:05 20:50 Temperature 36.8 C Heart Rate 80 73 Respiratory 14 14 Rate Blood Pressure 154/98 H 154/98 H O2 Saturation 100 100 Oxygen O2 Source Room air - Labs Labs: Laboratory Tests 07/14/20 07/14/20 20:32 20:32 WBC 7.9 RBC 4.69 Hgb 13.3 Hct 39.3 MCV 83.8 MCH 28.4 MCHC 33.8 RDW 13.9 Plt Count 383 MPV 10.0 Neut # (Auto) 5.8 Lymph # (Auto) 1.4 L [place] # (Auto) 0.6 Eos # (Auto) 0.1 Baso # (Auto) 0.1 Absolute Nucleated RBC 0.00 Nucleated RBC % 0.0 Sodium 139 Potassium 2.7 L Chloride 102 Carbon Dioxide 27 Anion Gap 10.0 BUN 10 Creatinine 0.9 Estimated GFR (MDRD) 70 L Glucose 126 H Calcium 9.8 Total Bilirubin 0.7 AST 17 ALT 14 Alkaline Phosphatase 45 Total Protein 8.6 H Albumin 4.9 Globulin 3.7 Albumin/Globulin Ratio 1.3 Lipase 38 PD MEDICAL DECISION MAKING - ED course Complexity details: reviewed old records, reviewed results, re-evaluated patient, considered differential, d/w patient Departure - Departure Disposition: 01 Home, Self Care Clinical Impression: Near syncope, Hypokalemia Condition: Good Instructions: ED Potassium Deficiency, ED Near Syncope Unkn Follow-Up: Marcella Montes PA [Primary Care Provider] - Within 1 week Prescriptions: Ondansetron Odt [Zofran] 4 mg TL Q6H PRN #10 tablet PRN Reason: Nausea / Vomiting Forms: Activity restrictions Discharge Date/Time: 07/14/20 21:32
[2020-07-14 20:09] VITALS: BP 154/98
[2020-07-14] MEDS ORDERED: SODIUM CHLORIDE 0.9% 1,000 ML IV STA (20:21)
[2020-07-14] MEDS ORDERED: ONDANSETRON 4 MG/2 ML VIAL IVP STA (20:36)
[2020-07-14 20:39] LABS: BASOPHILS # (AUTO) 0.1 10^3/uL (0.0-0.1); BASOPHILS % (AUTO) 0.6 %; EOSINOPHILS # (AUTO) 0.1 10^3/uL (0.0-0.7); EOSINOPHILS % (AUTO) 1.3 %; HCT - HEMATOCRIT 39.3 % (37.0-47.0); HGB - HEMOGLOBIN 13.3 g/dL (12.0-16.0); LYMPHOCYTES # (AUTO) 1.4 10^3/uL (1.5-3.5); MEAN CORPUSCULAR HEMOGLOBIN 28.4 pg (27.0-31.0); MEAN CORPUSCULAR HGB CONC 33.8 g/dL (32.0-36.0); MEAN CORPUSCULAR VOLUME 83.8 fL (81.0-99.0); MONOCYTES # (AUTO) 0.6 10^3/uL (0.0-1.0); MONOCYTES % (AUTO) 6.9 %; NEUTROPHILS # (AUTO) 5.8 10^3/uL (1.5-6.6); NEUTROPHILS % (AUTO) 72.8 %; PLT - PLATELET COUNT 383 10^3/uL (130-450); RED BLOOD COUNT 4.69 10^6/uL (4.20-5.40); RED CELL DISTRIBUTION WIDTH 13.9 % (12.0-15.0); WHITE BLOOD COUNT 7.9 x10^3/uL (4.8-10.8)
[2020-07-14 20:51] LABS: ALBUMIN 4.9 g/dL (3.2-5.5); ALBUMIN/GLOBULIN RATIO 1.3 (1.0-2.2); BILIRUBIN,TOTAL 0.7 mg/dL (0.2-1.0); CALCIUM 9.8 mg/dL (8.5-10.3); CREATININE 0.9 mg/dL (0.4-1.0); POTASSIUM 2.7 mmol/L (3.5-5.0); TOTAL PROTEIN 8.6 g/dL (6.7-8.2)
[2020-07-14] MEDS ORDERED: POTASSIUM CHLORIDE 20 MEQ TABLET PO STA (20:59)
== END 2020-07-14 21:32 | disposition home or self-care (01) ==
LOC: EDUNIT# → ED 20:00
DX: R55 Syncope and collapse (principal); E87.6 Hypokalemia; R11.2 Nausea with vomiting, unspecified; I10 Essential (primary) hypertension
CPT/HCPCS: 36415; 80053; 83690; 85025; 93005; 96374; 99284; A9270

== ENCOUNTER 2021-06-15 12:29 | Outpatient (CLI) | payer OTHER, MEDICAID | END 2021-06-15 12:30 | disposition critical access hospital (66) | LOC: EMS 12:29 | DX: R11.2 Nausea with vomiting, unspecified (principal); R10.84 Generalized abdominal pain; R20.0 Anesthesia of skin | CPT/HCPCS: A0425; A0427 ==

== ENCOUNTER 2021-06-15 12:45 | Emergency (ER) | payer OTHER, MEDICAID ==
--- NOTE | 2021-06-15 13:02 | ED Physician Documentation ---
History of Present Illness - Stated complaint Stated Complaint: WITHDRAWL/CHEST PRESSURE - Chief complaint Chief Complaint: Cardiac - History obtained from History obtained from: Patient, EMS - History of Present Illness Timing: How many days ago (4) Pain level max: 9 Pain level now: 8 - Additonal information Additional information: Patient is a 40-year-old female who states that she was on Suboxone 8 mg films, 2/day, 4 days ago she ran out because of insurance change and has been unable to afford the Suboxone. She is now going through withdrawal. Nausea, vomiting, dry heaves. Chest pain, restlessness, anxiousness. Complains of diffuse allover body pain. She states that she did use cocaine yesterday, but that this did not help. Chest pain is dull, aching, nonradiating. Abdominal pain is mostly cramping. Review of Systems Ten Systems: 10 systems reviewed and negative Constitutional: denies: Fever, Chills Ears: denies: Ear pain Nose: denies: Rhinorrhea / runny nose, Congestion Throat: denies: Sore throat Cardiac: denies: Palpitations Respiratory: denies: Dyspnea, Cough GI: reports: Abdominal Pain, Nausea, Vomiting. 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 : None HEENT: None Psych: Depression, Anxiety Musculoskeletal: Chronic back pain Derm: None - Past Surgical History Past Surgical History: Yes General: Cholecystectomy Ortho: Carpal Tunnel surgery /SPORTS REPORTER: section, Hysterectomy HEENT:  Derm: Other - Present Medications Home Medications: Ambulatory Orders Medication Instructions Recorded Confirmed Valacyclovir HCl [Valtrex] 500 mg ORAL DAILY 11/09/13 06/23/20 Omeprazole 20 mg PO DAILY 01/26/15 06/23/20 Losartan Potassium 50 mg PO DAILY 01/08/20 06/23/20 Multivitamin 1 each PO DAILY 01/08/20 06/23/20 methocarbamoL [Robaxin-750] 750 mg PO TID PRN 01/08/20 06/23/20 Acetaminophen [Tylenol] 650 mg PO Q6H PRN #90 tablet 03/05/20 06/23/20 Naproxen [EC-Naprosyn] 500 mg PO Q12H PRN #60 tablet. 03/05/20 06/23/20 oxyCODONE [Roxicodone] 5 mg PO Q4-6H #15 tablet 06/23/20 Ondansetron Odt [Zofran] 4 mg TL Q6H PRN #10 tablet 07/14/20 Promethazine [Phenergan] 25 mg PO Q6H PRN #10 tab 06/15/21 - Allergies Allergies/Adverse Reactions: Allergies Allergy/AdvReac Type Severity Reaction Status Date / Time ibuprofen Allergy stomach Verified 06/15/21 12:50 ulcers mussels Allergy Anaphylaxis Verified 06/15/21 12:50 tramadol Allergy Itching Verified 06/15/21 12:50 adhesive tape AdvReac Rash Verified 06/15/21 12:50 hydrocodone bitartrate * AdvReac Itching Verified 06/15/21 12:50 [From Vicodin] salmon oil AdvReac Rash Verified 06/15/21 12:50 - Living Situation Living Arrangement: reports: At home - Social History Does the pt smoke?: No Smoking Status: Never smoker Does the pt drink ETOH?: Yes Does the pt have substance abuse?: Yes Substance Use and Type: Cocaine/Crack - Immunizations Immunizations are current?: No Immunizations: TDAP current <10years - POLST Patient has POLST: No PD ED PE NORMAL - Vitals Vital signs reviewed: Yes - General General: Alert and oriented X 3, Other (Restless, appears uncomfortable) - HEENT HEENT: PERRL, Moist mucous membranes - Neck Neck: Supple, no meningeal sign - Cardiac Cardiac: RRR, Strong equal pulses - Respiratory Respiratory: No respiratory distress, Clear bilaterally - Abdomen Abdomen: Soft, Non distended, Other (Mild diffuse tenderness without peritoneal signs) - Derm Derm: Warm and dry - Extremities Extremities: No edema, No calf tenderness / cord - Neuro Neuro: Alert and oriented X 3, vehicle 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 technician 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, No motor deficit, No sensory deficit, Normal speech - Psych Psych: Normal mood, Normal affect Results - Vitals Vitals: Vital Signs - 24 hr 04/06/15/21 06/15/21 12:50 13:07 13:30 Temperature 37.2 C Heart Rate 85 78 60 Respiratory 29 H 18 13 Rate Blood Pressure 167/112 H 161/105 H 166/112 H O2 Saturation 100 98 100 06/15/21 06/15/21 14:00 14:43 Temperature 37.4 C Heart Rate 74 74 Respiratory 16 21 Rate Blood Pressure 180/121 H 127/89 H O2 Saturation 95 100 Oxygen O2 Source Room air - EKG (time done) 1252 Rate: Rate (enter#) (83) Rhythm: NSR [place]: Normal Intervals: Normal [place], Prolonged QT QRS: Normal Ischemia: Normal ST segments - Labs Labs: Laboratory Tests 06/15/21 06/15/21 06/15/21 13:03 13:03 13:03 WBC 7.7 RBC 4.80 Hgb 14.1 Hct 40.0 MCV 83.3 MCH 29.4 MCHC 35.3 RDW 12.5 Plt Count 351 MPV 10.2 Neut # (Auto) 6.0 Lymph # (Auto) 1.2 L [place] # (Auto) 0.4 Eos # (Auto) 0.0 Baso # (Auto) 0.0 Absolute Nucleated RBC 0.00 Nucleated RBC % 0.0 Sodium 137 Potassium 3.1 L Chloride 103 Carbon Dioxide 20 L Anion Gap 14.0 H BUN 11 Creatinine 0.9 Estimated GFR (MDRD) 69 L Glucose 124 H Calcium 9.6 Total Bilirubin 1.1 H AST 18 ALT 12 Alkaline Phosphatase 34 L Troponin I High Sens 3.0 Total Protein 7.8 Albumin 4.8 Globulin 3.0 Albumin/Globulin Ratio 1.6 Lipase 32 Urine Color Urine Clarity Urine pH Ur Specific [place] Urine Protein Urine Glucose (UA) Urine Ketones Urine Occult Blood Urine Nitrite Urine Bilirubin Urine Urobilinogen Ur Leukocyte Esterase Ur Microscopic Review Urine Culture Comments Urine HCG, Qual Nasal Adenovirus (PCR) Nasal B. parapertussis DNA (PCR) Nasal Coronavir 229E PCR Nasal Coronavir HKU1 PCR Nasal Coronavir NL63 PCR Nasal Coronavir OC43 PCR Nasal Enterovir/Rhinovir PCR Nasal Influenza B PCR Nasal Influenza A PCR Nasal Parainfluen 1 PCR Nasal Parainfluen 2 PCR Nasal Parainfluen 3 PCR Nasal Parainfluen 4 PCR Nasal RSV (PCR) Nasal B.pertussis DNA PCR Nasal C.pneumoniae (PCR) Rudy Human Metapneumo PCR Nasal M.pneumoniae (PCR) Nasal SARS-CoV-2 (PCR) Urine Opiates Screen Ur Oxycodone Screen Urine Methadone Screen Ur Propoxyphene Screen Ur Barbiturates Screen Ur Tricyclics Screen Ur Phencyclidine Scrn Ur Amphetamine Screen U Methamphetamines Scrn U Benzodiazepines Scrn Urine Cocaine Screen U Cannabinoids Screen 06/15/21 06/15/21 13:35 14:00 WBC RBC Hgb Hct MCV MCH MCHC RDW Plt Count MPV Neut # (Auto) Lymph # (Auto) [place] # (Auto) Eos # (Auto) Baso # (Auto) Absolute Nucleated RBC Nucleated RBC % Sodium Potassium Chloride Carbon Dioxide Anion Gap BUN Creatinine Estimated GFR (MDRD) Glucose Calcium Total Bilirubin AST ALT Alkaline Phosphatase Troponin I High Sens Total Protein Albumin Globulin Albumin/Globulin Ratio Lipase Urine Color YELLOW Urine Clarity CLEAR Urine pH 8.5 H Ur Specific [place] 1.020 Urine Protein NEGATIVE Urine Glucose (UA) NEGATIVE Urine Ketones 40 H Urine Occult Blood NEGATIVE Urine Nitrite NEGATIVE Urine Bilirubin NEGATIVE Urine Urobilinogen 0.2 (NORMAL) Ur Leukocyte Esterase NEGATIVE Ur Microscopic Review NOT INDICATED Urine Culture Comments NOT INDICATED Urine HCG, Qual NEGATIVE Nasal Adenovirus (PCR) NOT DETECTED Nasal B. parapertussis DNA (PCR) NOT DETECTED Nasal Coronavir 229E PCR NOT DETECTED Nasal Coronavir HKU1 PCR NOT DETECTED Nasal Coronavir NL63 PCR NOT DETECTED Nasal Coronavir OC43 PCR NOT DETECTED Nasal Enterovir/Rhinovir PCR NOT DETECTED Nasal Influenza B PCR NOT DETECTED Nasal Influenza A PCR NOT DETECTED Nasal Parainfluen 1 PCR NOT DETECTED Nasal Parainfluen 2 PCR NOT DETECTED Nasal Parainfluen 3 PCR NOT DETECTED Nasal Parainfluen 4 PCR NOT DETECTED Nasal RSV (PCR) NOT DETECTED Nasal B.pertussis DNA PCR NOT DETECTED Nasal C.pneumoniae (PCR) NOT DETECTED Rudy Human Metapneumo PCR NOT DETECTED Nasal M.pneumoniae (PCR) NOT DETECTED Nasal SARS-CoV-2 (PCR) NOT DETECTED Urine Opiates Screen NEGATIVE Ur Oxycodone Screen NEGATIVE Urine Methadone Screen NEGATIVE Ur Propoxyphene Screen NEGATIVE Ur Barbiturates Screen NEGATIVE Ur Tricyclics Screen NEGATIVE Ur Phencyclidine Scrn NEGATIVE Ur Amphetamine Screen NEGATIVE U Methamphetamines Scrn NEGATIVE U Benzodiazepines Scrn NEGATIVE Urine Cocaine Screen POSITIVE H U Cannabinoids Screen NEGATIVE - Rads (name of study) cxr Radiology: Final report received, EMP read contemporaneously, See rad report (no acute abnormality) PD MEDICAL DECISION MAKING - ED course Complexity details: reviewed results, re-evaluated patient, considered differential, d/w patient ED course: Patient appears to be in acute opiate withdrawal. She was given a dose of buprenorphine and symptoms resolved. She was able to obtain an appointment with her provider tomorrow to begin a Suboxone taper. Will prescribe nausea medication for home. Recommend that she follow-up with her doctor for further care. Social work was also consulted and talked with the patient. She does not want to go to any sort of inpatient rehab or detox. Patient is here with her who is supportive. Patient counseled regarding signs and symptoms for which I believe and urgent re-evaluation would be necessary. Patient with good understanding of and agreement to plan and is comfortable going home at this time This document was made in part using voice recognition software. While efforts are made to proofread this document, sound alike and grammatical errors may occur. Departure - Departure Disposition: 01 Home, Self Care Clinical Impression: Opiate withdrawal Condition: Good Instructions: ED Withdrawal Narcotic Follow-Up: your,doctor tomorrow [Other] Prescriptions: Promethazine [Phenergan] 25 mg PO Q6H PRN #10 tab PRN Reason: Nausea / Vomiting Comments: Follow-up with your doctor tomorrow as scheduled to restart the Suboxone and begin a taper. Please return if you worsen. Your prescriptions were sent to [facility] in [place]. Drink plenty of fluids and rest today. Forms: Activity restrictions Discharge Date/Time: 06/15/21 14:45
[2021-06-15] MEDS: PROMETHAZINE INJ 25 MG in SODIUM CHLORIDE 0.9% 50 ML IV STA (13:06)
[2021-06-15] MEDS: SODIUM CHLORIDE 0.9% 1,000 ML IV STA (13:06)
[2021-06-15] MEDS: BUPRENORPHINE 0.3 MG/ML VIAL IVP ONE (13:06)
[2021-06-15 13:07] LABS: BASOPHILS % (AUTO) 0.5 %; HGB - HEMOGLOBIN 14.1 g/dL (12.0-16.0); LYMPHOCYTES # (AUTO) 1.2 10^3/uL (1.5-3.5); LYMPHOCYTES % (AUTO) 15.3 %; MEAN CORPUSCULAR HEMOGLOBIN 29.4 pg (27.0-31.0); MEAN CORPUSCULAR HGB CONC 35.3 g/dL (32.0-36.0); MEAN CORPUSCULAR VOLUME 83.3 fL (81.0-99.0); MEAN PLATELET VOLUME 10.2 fL (7.9-10.8); MONOCYTES # (AUTO) 0.4 10^3/uL (0.0-1.0); MONOCYTES % (AUTO) 5.2 %; NEUTROPHILS % (AUTO) 78.6 %; PLT - PLATELET COUNT 351 10^3/uL (130-450); RED CELL DISTRIBUTION WIDTH 12.5 % (12.0-15.0); WHITE BLOOD COUNT 7.7 x10^3/uL (4.8-10.8)
--- NOTE | 2021-06-15 13:19 | XRAY Report ---
PROCEDURE: Chest 1 View X-Ray INDICATIONS: chest pain TECHNIQUE: One view of the chest was acquired. COMPARISON: None FINDINGS: Surgical changes and devices: None. Lungs and pleura: No pleural effusions or pneumothorax. Lungs are clear. Mediastinum: Mediastinal contours appear normal. Heart size is normal. Bones and chest wall: No suspicious bony lesions. Overlying soft tissues appear unremarkable. IMPRESSION: No acute cardiopulmonary pathology. Reviewed by: Will Javed MD on 06/15/2021 1:18 PM PDT Approved by: Will Javed MD on 06/15/2021 1:18 PM PDT Station ID: [id number]
[2021-06-15 13:24] LABS: ALBUMIN 4.8 g/dL (3.2-5.5); ALBUMIN/GLOBULIN RATIO 1.6 (1.0-2.2); BILIRUBIN,TOTAL 1.1 mg/dL (0.2-1.0); CALCIUM 9.6 mg/dL (8.5-10.3); CREATININE 0.9 mg/dL (0.4-1.0); POTASSIUM 3.1 mmol/L (3.5-5.0); TOTAL PROTEIN 7.8 g/dL (6.7-8.2)
[2021-06-15 14:07] LABS: MUDS CUTOFF CONCENTRATIONS CUTOFF CONC BELOW:
[2021-06-15 14:11] LABS: BILIRUBIN,URINE NEGATIVE (NEGATIVE); GLUCOSE, URINE (UA) NEGATIVE (NEGATIVE); KETONES,URINE (UA) 40 mg/dL (NEGATIVE); LEUKOCYTE ESTERASE, URINE NEGATIVE (NEGATIVE); NITRITE,URINE NEGATIVE (NEGATIVE); OCCULT BLOOD,URINE NEGATIVE (NEGATIVE); PH,URINE 8.5 PH (5.0-7.5); PROTEIN,URINE NEGATIVE (NEGATIVE); UROBILINOGEN,URINE 0.2 (NORMAL) E.U./dL (NORMAL)
[2021-06-15 14:12] LABS: CLARITY,URINE CLEAR (CLEAR); HCG UR QUAL NEGATIVE
[2021-06-15 14:20] LABS: AMPHETAMINE SCREEN,URINE NEGATIVE (NEGATIVE); BARBITURATE SCREEN,UR NEGATIVE (NEGATIVE); BENZODIAZEPINES SCREEN, URINE NEGATIVE (NEGATIVE); COCAINE SCREEN URINE POSITIVE (NEGATIVE); METHADONE SCREEN, URINE NEGATIVE (NEGATIVE); METHAMPHETAMINES SCREEN, URINE NEGATIVE (NEGATIVE); OPIATE SCREEN, URINE NEGATIVE (NEGATIVE); OXYCODONE SCREEN, URINE NEGATIVE (NEGATIVE); PROPOXYPHENE SCREEN, URINE NEGATIVE (NEGATIVE); THC CANNABINOID SCREEN, URINE NEGATIVE (NEGATIVE); TRICYCLIC ANTIDEPRESSANT,URINE NEGATIVE (NEGATIVE)
[2021-06-15 14:38] LABS: B. PARAPERTUSSIS- RESP PCR PAN NOT DETECTED; B. PERTUSSIS- RESP PCR PANEL NOT DETECTED; C. PNEUMONIAE- RESP PCR PANEL NOT DETECTED; CORONAVIRUS 229E-RESP PCR NOT DETECTED; CORONAVIRUS HKU1-RESP PCR NOT DETECTED; CORONAVIRUS NL63-RESP PCR NOT DETECTED; CORONAVIRUS OC43-RESP PCR NOT DETECTED; HUMAN METAPNEUMOVIRUS NOT DETECTED; INFLUENZA A- RESP PCR PANEL NOT DETECTED; INFLUENZA B - RESP PCR PANEL NOT DETECTED; M. PNEUMONIAE- RESP PCR PANEL NOT DETECTED; PARAINFLUENZA VIRUS 1 NOT DETECTED; PARAINFLUENZA VIRUS 2 NOT DETECTED; PARAINFLUENZA VIRUS 3 NOT DETECTED; PARAINFLUENZA VIRUS 4 NOT DETECTED; RHINOVIRUS/ENTEROVIRUS NOT DETECTED; RSV- RESP PCR PANEL NOT DETECTED; SARS-CoV-2 -RESP PCR PANEL NOT DETECTED
[2021-06-15 14:44] VITALS: BP 127/89
== END 2021-06-15 14:45 | disposition home or self-care (01) ==
LOC: EDUNIT# → ED 12:45
DX: F11.23 Opioid dependence with withdrawal (principal); I10 Essential (primary) hypertension
CPT/HCPCS: 36415; 71045; 80053; 80306; 81003; 81025; 83690; 84484; 85025; 87633; 93005; 96365; 96375; 99284; J0592; J7040; 81001; 87086

== ENCOUNTER 2023-02-22 14:33 | Outpatient (CLI) | payer OTHER, MEDICAID | END 2023-02-22 14:34 | disposition critical access hospital (66) | LOC: EMS 14:33 | DX: R11.2 Nausea with vomiting, unspecified (principal); R07.9 Chest pain, unspecified; R53.1 Weakness; R10.9 Unspecified abdominal pain | CPT/HCPCS: A0425; A0427 ==

== ENCOUNTER 2023-02-22 14:54 | Emergency (ER) | payer OTHER, MEDICAID ==
[2023-02-22] MEDS ORDERED: SODIUM CHLORIDE 0.9% 1,000 ML IV STA (14:59)
[2023-02-22] MEDS ORDERED: BUPRENORPHINE 0.3 MG/ML VIAL IVP ONE (14:59)
--- NOTE | 2023-02-22 15:03 | ED Physician Documentation ---
History of Present Illness - Stated complaint Stated Complaint: WITHDRAWL - History obtained from History obtained from: Patient, EMS - Additonal information Additional information: 42-year-old woman with history of narcotic abuse. Was on Suboxone previously but weaned off about a year ago and was sober for quite some time. Or recently has been abusing "oxycodone" bought on the street. She ran out yesterday and couldn't find any. Now vomiting with the fuse, pain and cramps. 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 : None HEENT: None Psych: Depression, Anxiety Musculoskeletal: Chronic back pain Derm: None - Past Surgical History Past Surgical History: Yes General: Cholecystectomy Ortho: Carpal Tunnel surgery /ANKLE PATCH MOLDER: section, Hysterectomy HEENT:  Derm: Other - Present Medications Home Medications: Ambulatory Orders Medication Instructions Recorded Confirmed Valacyclovir HCl [Valtrex] 500 mg ORAL DAILY 11/09/13 06/23/20 Omeprazole 20 mg PO DAILY 01/26/15 06/23/20 Losartan Potassium 50 mg PO DAILY 01/08/20 06/23/20 Multivitamin 1 each PO DAILY 01/08/20 06/23/20 methocarbamoL [Robaxin-750] 750 mg PO TID PRN 01/08/20 06/23/20 Acetaminophen [Tylenol] 650 mg PO Q6H PRN #90 tablet 03/05/20 06/23/20 Naproxen [EC-Naprosyn] 500 mg PO Q12H PRN #60 tablet. 03/05/20 06/23/20 oxyCODONE [Roxicodone] 5 mg PO Q4-6H #15 tablet 06/23/20 Ondansetron Odt [Zofran] 4 mg TL Q6H PRN #10 tablet 07/14/20 Promethazine [Phenergan] 25 mg PO Q6H PRN #10 tab 06/15/21 Buprenorphine HCl/Naloxone HCl 1 each SL DAILY #3 film 02/22/23 [Suboxone 8 mg-2 mg Sl Film] LORazepam [Ativan] 1 mg PO TID PRN #10 tablet 02/22/23 Ondansetron Odt [Zofran] 4 mg TL Q6H PRN #10 tablet 02/22/23 - Allergies Allergies/Adverse Reactions: Allergies Allergy/AdvReac Type Severity Reaction Status Date / Time ibuprofen Allergy stomach Verified 02/22/23 15:05 ulcers mussels Allergy Anaphylaxis Verified 02/22/23 15:05 tramadol Allergy Itching Verified 02/22/23 15:05 adhesive tape AdvReac Rash Verified 02/22/23 15:05 hydrocodone bitartrate * AdvReac Itching Verified 02/22/23 15:05 [From Vicodin] salmon oil AdvReac Rash Verified 02/22/23 15:05 - Social History Does the pt smoke?: No Smoking Status: Never smoker Does the pt drink ETOH?: Yes Does the pt have substance abuse?: Yes - Immunizations Immunizations are current?: No Immunizations: TDAP current <10years - POLST Patient has POLST: No PD ED PE NORMAL - Vitals Vital signs reviewed: Yes - General General: Alert and oriented X 3, Other (uncomfortable/retching) - HEENT HEENT: PERRL - Neck Neck: Supple, no meningeal sign - Cardiac Cardiac: RRR, No murmur - Respiratory Respiratory: No respiratory distress, Clear bilaterally - Abdomen Abdomen: Non tender - Neuro Neuro: Alert and oriented X 3 Results - Vitals Vitals: Vital Signs - 24 hr 02/22/23 14:59 Temperature 36.5 C Heart Rate 76 Respiratory 20 Rate Blood Pressure 155/126 H O2 Saturation 100 Oxygen O2 Source Room air - Labs Labs: Laboratory Tests 02/22/23 15:07 Sodium 138 Potassium 3.5 Chloride 108 Carbon Dioxide 19 L Anion Gap 11.0 BUN 12 Creatinine 0.9 Estimated GFR (MDRD) 69 L Glucose 142 H Calcium 9.7 Magnesium 1.5 L Total Bilirubin 0.7 AST 10 ALT 7 L Alkaline Phosphatase 36 L Total Protein 7.7 Albumin 4.6 Globulin 3.1 Albumin/Globulin Ratio 1.5 PD Medical Decision Making - ED course ED course: 42-year-old woman presents in acute narcotic withdrawal. After administration of IV buprenorphine and Zofran and IV fluid she felt much better. Still with some mild nausea. Chemistry panel notable for evidence of dehydration and hypomagnesemia. IV magnesium rider ordered. She requested discharge and did not particular want to stay around and talk to the social sciences research scientist. But she was interested in resources for both in and outpatient detox as well as medications to help her bridge until she could establish care. Departure - Departure Disposition: 01 Home, Self Care Clinical Impression: Acute narcotic withdrawal Condition: Good Record reviewed to determine appropriate education?: Yes Instructions: ED Withdrawal Narcotic Prescriptions: LORazepam [Ativan] 1 mg PO TID PRN #10 tablet PRN Reason: Anxiety Buprenorphine HCl/Naloxone HCl [Suboxone 8 mg-2 mg Sl Film] 1 each SL DAILY #3 film Ondansetron Odt [Zofran] 4 mg TL Q6H PRN #10 tablet PRN Reason: Nausea / Vomiting Comments: I sent your prescriptions electronically to the [facility] in [place]. We think you would benefit from admission for detoxification and/or rehabilitation from alcohol and/or drugs. The closest facility that does this is in [place]. It is: [facility] [address] [place] [address] Call them at [phone] to arrange an intake appointment. This would be for inpatient treatment. If you would prefer outpatient t reatment, the I would recommend calling: [facility] Address: [address], [place] [address]
[2023-02-22 15:08] VITALS: O2SAT 100
[2023-02-22 15:30] LABS: ALBUMIN 4.6 g/dL (3.2-5.5); ALBUMIN/GLOBULIN RATIO 1.5 (1.0-2.2); BILIRUBIN,TOTAL 0.7 mg/dL (0.2-1.0); CALCIUM 9.7 mg/dL (8.5-10.3); CREATININE 0.9 mg/dL (0.6-1.3); MAGNESIUM 1.5 mg/dL (1.7-2.3); POTASSIUM 3.5 mmol/L (3.5-4.5); TOTAL PROTEIN 7.7 g/dL (6.4-8.9)
[2023-02-22] MEDS ORDERED: MAGNESIUM SULFATE 2 GRAM 2 GM/50 ML BAG IV ONE (15:40)
[2023-02-22] MEDS ORDERED: METOCLOPRAMIDE 10 MG/2 ML VIAL IVP STA (15:46)
[2023-02-22] MEDS ORDERED: NALOXONE HCL NASAL SPRAY KIT NAS STA (15:49)
[2023-02-22 16:57] VITALS: BP 168/103
== END 2023-02-22 17:24 | disposition home or self-care (01) ==
LOC: EDUNIT# → ED 14:54
DX: F11.23 Opioid dependence with withdrawal (principal); E83.42 Hypomagnesemia
CPT/HCPCS: 36415; 80053; 83735; 96365; 96375; 99283; G2215; J0592; J2765

== ENCOUNTER 2023-04-23 00:03 | Outpatient (CLI) | payer OTHER, MEDICAID | END 2023-04-23 23:59 | disposition critical access hospital (66) | LOC: EMS 00:03 | DX: R11.2 Nausea with vomiting, unspecified (principal); R10.84 Generalized abdominal pain | CPT/HCPCS: A0425; A0427 ==

== ENCOUNTER 2023-05-18 18:01 | Outpatient (CLI) | payer OTHER, MEDICAID | END 2023-05-18 23:59 | disposition critical access hospital (66) | LOC: EMS 18:01 | DX: R52 Pain, unspecified (principal); R11.2 Nausea with vomiting, unspecified; R31.9 Hematuria, unspecified | CPT/HCPCS: A0425; A0427 ==

== ENCOUNTER 2023-05-18 18:20 | Emergency (ER) | payer OTHER, MEDICAID ==
--- NOTE | 2023-05-18 18:37 | ED Physician Documentation ---
History of Present Illness - Stated complaint Stated Complaint: W/D - Chief complaint Chief Complaint: Abd Pain - History obtained from History obtained from: Patient - Additonal information Additional information: She has a history of chronic narcotic dependence and is on Suboxone as well as Seroquel, hydroxyzine, and sertraline. She missed an appointment with her doctor due to a in the family and ran out of all of her meds and is now withdrawing with bodyaches, vomiting, diarrhea, skin crawling. 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 : None HEENT: None Psych: Depression, Anxiety Musculoskeletal: Chronic back pain Derm: None - Past Surgical History Past Surgical History: Yes General: Cholecystectomy Ortho: Carpal Tunnel surgery /GLASS SANDER: section, Hysterectomy HEENT:  Derm: Other - Present Medications Home Medications: Ambulatory Orders Medication Instructions Recorded Confirmed Buprenorphine HCl/Naloxone HCl 1 each SL DAILY #4 film 04/23/23 [Buprenorphine-Nalox 8-2Mg Film] Buprenorphine HCl/Naloxone HCl 1 film PO BID 04/23/23 04/23/23 [Suboxone 8 mg-2 mg Sl Film] LORazepam [Ativan] 1 mg PO TID PRN #10 tablet 04/23/23 Ondansetron Odt [Zofran] 4 mg TL Q6H PRN #10 tablet 04/23/23 Sertraline HCl [Zoloft] 50 mg PO DAILY 04/23/23 04/23/23 Sertraline [Zoloft] 50 mg PO DAILY 04/23/23 04/23/23 hydrOXYzine HCL [Hydroxyzine HCl] 25 - 50 mg PO BID PRN 04/23/23 04/23/23 Buprenorphine HCl/Naloxone HCl 2.5 tab SL DAILY #13 tablet 05/18/23 [Suboxone 8-2 mg Tab] Quetiapine Fumarate [Seroquel] 50 mg PO DAILY #5 tablet 05/18/23 Sertraline HCl [Zoloft] 50 mg PO DAILY #30 tablet 05/18/23 hydrOXYzine PAMOATE [Vistaril] 25 mg PO Q6H PRN #20 cap 05/18/23 - Allergies Allergies/Adverse Reactions: Allergies Allergy/AdvReac Type Severity Reaction Status Date / Time ibuprofen Allergy stomach Verified 04/23/23 00:31 ulcers mussels Allergy Anaphylaxis Verified 04/23/23 00:31 tramadol Allergy Itching Verified 04/23/23 00:31 adhesive tape AdvReac Rash Verified 04/23/23 00:31 hydrocodone bitartrate * AdvReac Itching Verified 04/23/23 00:31 [From Vicodin] salmon oil AdvReac Rash Verified 04/23/23 00:31 - Social History Does the pt smoke?: No Smoking Status: Never smoker Does the pt drink ETOH?: Yes Does the pt have substance abuse?: Yes - Immunizations Immunizations are current?: No Immunizations: TDAP current <10years - POLST Patient has POLST: No PD ED PE NORMAL - Vitals Vital signs reviewed: Yes - General General: Alert and oriented X 3, No acute distress - HEENT HEENT: Pharynx benign - Cardiac Cardiac: RRR, No murmur - Respiratory Respiratory: No respiratory distress, Clear bilaterally - Abdomen Abdomen: Non tender - Neuro Neuro: Alert and oriented X 3, water hauler 2-12 intact Eye Opening: Spontaneous Motor: Obeys Commands Verbal: Oriented GCS Score: 15 - Psych Psych: Normal mood, Normal affect Results - Vitals Vitals: Vital Signs - 24 hr 05/18/23 18:26 Temperature 36.5 C Heart Rate 74 Respiratory 16 Rate Blood Pressure 137/91 H O2 Saturation 98 Oxygen O2 Source Room air - Labs Labs: Laboratory Tests 05/18/23 19:49 Urine Color YELLOW Urine Clarity HAZY Urine pH 8.0 H Ur Specific [place] 1.020 Urine Protein 100 H Urine Glucose (UA) NEGATIVE Urine Ketones 40 H Urine Occult Blood NEGATIVE Urine Nitrite NEGATIVE Urine Bilirubin SMALL H Urine Urobilinogen 0.2 (NORMAL) Ur Leukocyte Esterase NEGATIVE Urine RBC 0-5 Urine WBC 0-3 Ur Squamous Epith Cells MOD Squamous H Urine Bacteria Few Ur Microscopic Review INDICATED Urine Culture Comments NOT INDICATED PD Medical Decision Making - ED course ED course: 42-year-old woman with acute narcotic withdrawal, probably also withdrawing from SSRI and Seroquel. She appears well with normal exam. Has an appointment with her prescriber again on 23 May. 42-year-old woman presents with narcotic withdrawal having ran out of her Suboxone. She was feeling much better after the administration of IV buprenorphine and Reglan. Passed p.o. challenge. Departure - Departure Disposition: Home, Self Care Clinical Impression: Narcotic withdrawal Condition: Good Instructions: ED Withdrawal Narcotic Prescriptions: Quetiapine Fumarate [Seroquel] 50 mg PO DAILY #5 tablet Buprenorphine HCl/Naloxone HCl [Suboxone 8-2 mg Tab] 2.5 tab SL DAILY #13 tablet hydrOXYzine PAMOATE [Vistaril] 25 mg PO Q6H PRN #20 cap PRN Reason: Anxiety Sertraline HCl [Zoloft] 50 mg PO DAILY #30 tablet Comments: I sent the prescriptions electronically to the [facility] in [place]. Follow- up with the prescriber on the fourth as scheduled. Return for new or worsening symptoms. Further prescriptions for Suboxone from the emergency department may be limited. I am prescribing a short course of narcotic pain medication for you. These are potentially dangerous and addictive medications that should be used carefully. These medications may constipate you. Take an [id number] stool softener (docusate) twice daily with plenty of water while taking these medications. If you go 24 hours without a bowel movement, take [id number] miralax, per package instructions. Do not drink or drive while taking these medications. If you received narcotic or sedating medications while in the emergency department, do not drive for 24 hours. Store this medication in a safe, secure place and out of reach of children. It is a violation of federal law to give or sell this medication to another person or to use in a manner other than prescribed. The ED will not refill narcotic prescriptions, including prescriptions lost or stolen. To dispose of unwanted medications: 1. [facility] provides a drop box for medication in pill form only (no liquids) 8:00 am to 4:30 p.m. Sunday-Sunday in the lobby of the [facility], [address] [place] [address]. Empty pills into ziplock bag before disposal. Call [phone] for information. 2.[employer] is a free service available to all [facility] residents. Go to [email or web address] Note that many narcotic pain relievers also contain Tylenol/acetaminophen. Please ensure that your total dose of acetaminophen from all sources does not exceed 3 g (3000 mg) per day. Forms: PCP List
[2023-05-18] MEDS: BUPRENORPHINE 0.3 MG/ML VIAL IVP ONE (19:33)
[2023-05-18] MEDS: SODIUM CHLORIDE 0.9% 1,000 ML IV STA (19:33)
[2023-05-18 20:00] LABS: BILIRUBIN,URINE SMALL (NEGATIVE); GLUCOSE, URINE (UA) NEGATIVE (NEGATIVE); KETONES,URINE (UA) 40 mg/dL (NEGATIVE); LEUKOCYTE ESTERASE, URINE NEGATIVE (NEGATIVE); NITRITE,URINE NEGATIVE (NEGATIVE); OCCULT BLOOD,URINE NEGATIVE (NEGATIVE); PROTEIN,URINE 100 mg/dL (NEGATIVE); UROBILINOGEN,URINE 0.2 (NORMAL) E.U./dL (NORMAL)
[2023-05-18] MEDS: METOCLOPRAMIDE 10 MG/2 ML VIAL IVP STA (20:06)
[2023-05-18 20:21] LABS: CLARITY,URINE HAZY (CLEAR)
[2023-05-18 20:26] LABS: BACTERIA,URINE Few /HPF (None Seen); RBC,URINE 0-5 /HPF (0-5); SQUAMOUS EPITHELIAL CELL,UR MOD Squamous (<= Few); WBC,URINE 0-3 /HPF (0-5)
[2023-05-18] MEDS: SERTRALINE 50 MG TABLET PO STA ×2 (20:42→20:43)
[2023-05-18] MEDS: QUEtiapine 25 MG TABLET PO STA ×2 (20:42→20:43)
[2023-05-18 20:48] VITALS: BP 155/85; O2SAT 96
== END 2023-05-18 20:51 | disposition home or self-care (01) ==
LOC: EDUNIT# → ED 18:20
DX: F11.23 Opioid dependence with withdrawal (principal); I10 Essential (primary) hypertension; Z79.899 Other long term (current) drug therapy
CPT/HCPCS: 81001; 96374; 96375; 99284; A9270; J0592; J2765; 81003; 87086

== ENCOUNTER 2023-05-31 08:00 | Outpatient (CLI) | payer OTHER, MEDICAID | END 2023-05-31 23:59 | disposition home or self-care (01) | LOC: LAB.WCP 08:00 | PROVIDERS: ATTEND Family Medicine | DX: F11.13 Opioid abuse with withdrawal (principal) | CPT/HCPCS: 80307; 81599 ==

== ENCOUNTER 2023-06-07 08:00 | Outpatient (CLI) | payer OTHER, MEDICAID | END 2023-06-07 23:59 | disposition home or self-care (01) | LOC: LAB.WCP 08:00 | PROVIDERS: ATTEND Family Medicine | DX: F11.10 Opioid abuse, uncomplicated (principal) | CPT/HCPCS: 80307; 81599 ==

== ENCOUNTER 2023-08-20 03:25 | Outpatient (CLI) | payer OTHER, MEDICAID | END 2023-08-20 23:59 | disposition critical access hospital (66) | LOC: EMS 03:25 | PROVIDERS: ATTEND Emergency Medicine | DX: R07.9 Chest pain, unspecified (principal); R10.13 Epigastric pain; R11.10 Vomiting, unspecified; R40.4 Transient alteration of awareness | CPT/HCPCS: A0425; A0427 ==

== ENCOUNTER 2023-08-20 03:43 | Emergency (ER) | payer OTHER, MEDICAID ==
[2023-08-20] MEDS: ONDANSETRON 4 MG/2 ML VIAL IVP STA ×4 (03:58→20:12)
[2023-08-20] MEDS: SODIUM CHLORIDE 0.9% 1,000 ML IV STA ×2 (03:58→05:45)
[2023-08-20 04:10] LABS: BASOPHILS # (AUTO) 0.1 10^3/uL (0.0-0.1); BASOPHILS % (AUTO) 0.8 %; EOSINOPHILS # (AUTO) 0.1 10^3/uL (0.0-0.7); EOSINOPHILS % (AUTO) 1.2 %; HCT - HEMATOCRIT 40.1 % (37.0-47.0); HGB - HEMOGLOBIN 13.6 g/dL (12.0-16.0); LYMPHOCYTES # (AUTO) 1.5 10^3/uL (1.5-3.5); LYMPHOCYTES % (AUTO) 14.6 %; MEAN CORPUSCULAR HEMOGLOBIN 28.5 pg (27.0-31.0); MEAN CORPUSCULAR HGB CONC 33.9 g/dL (32.0-36.0); MEAN CORPUSCULAR VOLUME 83.9 fL (81.0-99.0); MEAN PLATELET VOLUME 10.4 fL (7.9-10.8); MONOCYTES # (AUTO) 0.5 10^3/uL (0.0-1.0); MONOCYTES % (AUTO) 5.1 %; NEUTROPHILS # (AUTO) 8.3 10^3/uL (1.5-6.6); PLT - PLATELET COUNT 364 10^3/uL (130-450); RED BLOOD COUNT 4.78 10^6/uL (4.20-5.40); RED CELL DISTRIBUTION WIDTH 12.9 % (12.0-15.0); WHITE BLOOD COUNT 10.6 x10^3/uL (4.8-10.8)
[2023-08-20 04:24] LABS: ALBUMIN 4.7 g/dL (3.2-5.5); ALKALINE PHOSPHATASE 37 IU/L (42-121); ALT ALANINE AMINOTRANSFERASE 9 IU/L (10-60); AST ASPARTATE AMINOTRANSFERASE 12 IU/L (10-42); BILIRUBIN,TOTAL 0.6 mg/dL (0.2-1.0); BUN - BLOOD UREA NITROGEN 12 mg/dL (6-20); CALCIUM 10.4 mg/dL (8.5-10.3); CARBON DIOXIDE - CO2 26 mmol/L (21-32); CHLORIDE 105 mmol/L (101-111); CREATININE 0.9 mg/dL (0.6-1.3); ETOH - ETHANOL < 10.0 mg/dL; GFR - MDRD 69 (>89); GLUCOSE 143 mg/dL (74-104); LIPASE 14 U/L (11-82); POTASSIUM 3.4 mmol/L (3.5-4.5); SODIUM 141 mmol/L (135-145)
[2023-08-20] MEDS: DROPERIDOL 5 MG/2 ML VIAL IVP STA (04:26)
[2023-08-20 05:29] LABS: B. PARAPERTUSSIS- RESP PCR PAN NOT DETECTED; B. PERTUSSIS- RESP PCR PANEL NOT DETECTED; C. PNEUMONIAE- RESP PCR PANEL NOT DETECTED; CORONAVIRUS 229E-RESP PCR NOT DETECTED; CORONAVIRUS HKU1-RESP PCR NOT DETECTED; CORONAVIRUS NL63-RESP PCR NOT DETECTED; CORONAVIRUS OC43-RESP PCR NOT DETECTED; HUMAN METAPNEUMOVIRUS NOT DETECTED; INFLUENZA A- RESP PCR PANEL NOT DETECTED; INFLUENZA B - RESP PCR PANEL NOT DETECTED; M. PNEUMONIAE- RESP PCR PANEL NOT DETECTED; PARAINFLUENZA VIRUS 1 NOT DETECTED; PARAINFLUENZA VIRUS 2 NOT DETECTED; PARAINFLUENZA VIRUS 3 NOT DETECTED; PARAINFLUENZA VIRUS 4 NOT DETECTED; RHINOVIRUS/ENTEROVIRUS NOT DETECTED; RSV- RESP PCR PANEL NOT DETECTED; SARS-CoV-2 -RESP PCR PANEL NOT DETECTED
[2023-08-20 05:44] LABS: BILIRUBIN,URINE NEGATIVE (NEGATIVE); GLUCOSE, URINE (UA) NEGATIVE (NEGATIVE); KETONES,URINE (UA) 15 mg/dL (NEGATIVE); LEUKOCYTE ESTERASE, URINE NEGATIVE (NEGATIVE); NITRITE,URINE NEGATIVE (NEGATIVE); OCCULT BLOOD,URINE NEGATIVE (NEGATIVE); PH,URINE 8.5 PH (5.0-7.5); PROTEIN,URINE NEGATIVE (NEGATIVE); UROBILINOGEN,URINE 0.2 (NORMAL) E.U./dL (NORMAL)
[2023-08-20] MEDS: METOCLOPRAMIDE 10 MG/2 ML VIAL IVP STA (05:44)
--- NOTE | 2023-08-20 05:49 | ED Physician Documentation ---
History of Present Illness - Stated complaint Stated Complaint: UNRESPONSIVE - Chief complaint Chief Complaint: Neuro - History obtained from History obtained from: Patient - Additonal information Additional information: Patient is a 42-year-old female with a history of opiate dependence presenting for evaluation of feeling unwell for the past several days with abdominal pain, nausea and vomiting. This evening she was found in the hallway and family were unable to wake her up. EMS also noted that she was difficult to wake and they loaded her onto their stretcher. She did wake up without any intervention on their stretcher. She has been dry heaving. Denies fever, cough or congestion. States she has been off of Suboxone for several weeks intentionally as she weaned herself off. Denies dysuria. Review of Systems Constitutional: denies: Fever Cardiac: denies: Chest pain / pressure Respiratory: denies: Dyspnea GI: reports: Abdominal Pain, Nausea, Vomiting : denies: Dysuria PD PAST MEDICAL HISTORY - Past Medical History Past Medical History: Yes Cardiovascular: Hypertension Respiratory: Asthma Endocrine/Autoimmune: None GI: GERD, Ulcers, Cholelithiasis MAGISTRATE: Ovarian cysts : None HEENT: None Psych: Depression, Anxiety, Other Musculoskeletal: Chronic back pain Derm: None Other Past Medical History: Recovering Opiates abuse - Past Surgical History Past Surgical History: Yes General: Cholecystectomy Ortho: Carpal Tunnel surgery /MAGISTRATE: section, Hysterectomy HEENT:  Derm: Other - Present Medications Home Medications: Ambulatory Orders Medication Instructions Recorded Confirmed Ondansetron Odt [Zofran] 4 mg TL Q6H PRN #10 tablet 04/23/23 08/20/23 Sertraline [Zoloft] 50 mg PO DAILY 04/23/23 08/20/23 Quetiapine Fumarate [Seroquel] 50 mg PO DAILY #5 tablet 05/18/23 08/20/23 hydrOXYzine PAMOATE [Vistaril] 25 mg PO Q6H PRN #20 cap 05/18/23 08/20/23 Lisinopril [Zestril] 1 tab PO DAILY 08/20/23 08/20/23 - Allergies Allergies/Adverse Reactions: Allergies Allergy/AdvReac Type Severity Reaction Status Date / Time ibuprofen Allergy stomach Verified 07/13/23 06:03 ulcers mussels Allergy Anaphylaxis Verified 07/13/23 06:03 tramadol Allergy Itching Verified 07/13/23 06:03 adhesive tape AdvReac Rash Verified 07/13/23 06:03 hydrocodone bitartrate * AdvReac Itching Verified 07/13/23 06:03 [From Vicodin] salmon oil AdvReac Rash Verified 07/13/23 06:03 - Social History Does the pt smoke?: No Smoking Status: Never smoker Does the pt drink ETOH?: Yes Does the pt have substance abuse?: Yes - Immunizations Immunizations are current?: No Immunizations: TDAP current <10years - POLST Patient has POLST: No PD ED PE NORMAL - General General: Alert and oriented X 3, Well developed/nourished, Other (Loud retching, dry heaving into emesis bag) - HEENT HEENT: Atraumatic, PERRL, EOMI - Neck Neck: Supple, no meningeal sign - Cardiac Cardiac: RRR - Respiratory Respiratory: No respiratory distress, Clear bilaterally - Abdomen Abdomen: Normal bowel sounds, Soft, Non distended, Other (Generalized abdominal tenderness) - Derm Derm: Warm and dry - Extremities Extremities: No deformity - Neuro Neuro: Alert and oriented X 3, No motor deficit, Normal speech Eye Opening: Spontaneous Motor: Obeys Commands Verbal: Oriented GCS Score: 15 Results - Vitals Vitals: Vital Signs - 24 hr 08/20/23 08/20/23 08/20/23 03:43 03:48 04:28 Temperature 36.9 C Heart Rate 78 81 79 Respiratory 16 22 18 Rate Blood Pressure 156/94 H 186/94 H 156/94 H O2 Saturation 100 100 100 08/20/23 08/20/23 08/20/23 05:35 06:52 08:00 Temperature Heart Rate 96 68 95 Respiratory 16 16 18 Rate Blood Pressure 146/88 H 169/98 H 171/105 H O2 Saturation 100 99 97 08/20/23 08/20/23 08/20/23 10:00 11:40 12:32 Temperature Heart Rate 62 87 Respiratory 18 18 Rate Blood Pressure 179/90 H 167/102 H 161/111 H O2 Saturation 98 98 08/20/23 08/20/23 08/20/23 13:07 13:10 13:15 Temperature Heart Rate 67 69 69 Respiratory Rate Blood Pressure 161/100 H 146/90 H 125/86 H O2 Saturation 08/20/23 08/20/23 08/20/23 13:20 13:30 13:45 Temperature Heart Rate 58 L 74 58 L Respiratory Rate Blood Pressure 129/86 H 125/81 H 153/102 H O2 Saturation 08/20/23 14:00 Temperature Heart Rate 73 Respiratory Rate Blood Pressure 157/98 H O2 Saturation Oxygen O2 Source Room air - EKG (time done) 0411 EKG releavant findings:: EKG personally interpreted by author of this note. Relevant findings are: Rate 65, normal sinus rhythm, no STEMI, QTc 473 - Labs Labs: Laboratory Tests 08/20/23 08/20/23 08/20/23 03:50 03:50 04:28 WBC 10.6 RBC 4.78 Hgb 13.6 Hct 40.1 MCV 83.9 MCH 28.5 MCHC 33.9 RDW 12.9 Plt Count 364 MPV 10.4 Neut # (Auto) 8.3 H Lymph # (Auto) 1.5 Centre # (Auto) 0.5 Eos # (Auto) 0.1 Baso # (Auto) 0.1 Absolute Nucleated RBC 0.00 Nucleated RBC % 0.0 Sodium 141 Potassium 3.4 L Chloride 105 Carbon Dioxide 26 Anion Gap 10.0 BUN 12 Creatinine 0.9 Estimated GFR (MDRD) 69 L Glucose 143 H Calcium 10.4 H Total Bilirubin 0.6 AST 12 ALT 9 L Alkaline Phosphatase 37 L Total Protein 7.0 Albumin 4.7 Globulin 2.3 Albumin/Globulin Ratio 2.0 Lipase 14 Urine Color Urine Clarity Urine pH Ur Specific Goodspring Urine Protein Urine Glucose (UA) Urine Ketones Urine Occult Blood Urine Nitrite Urine Bilirubin Urine Urobilinogen Ur Leukocyte Esterase Ur Microscopic Review Urine Culture Comments Urine HCG, Qual Nasal Adenovirus (PCR) NOT DETECTED Nasal B. parapertussis DNA (PCR) NOT DETECTED Nasal Coronavir 229E PCR NOT DETECTED Nasal Coronavir HKU1 PCR NOT DETECTED Nasal Coronavir NL63 PCR NOT DETECTED Nasal Coronavir OC43 PCR NOT DETECTED Nasal Enterovir/Rhinovir PCR NOT DETECTED Nasal Influenza B PCR NOT DETECTED Nasal Influenza A PCR NOT DETECTED Nasal Parainfluen 1 PCR NOT DETECTED Nasal Parainfluen 2 PCR NOT DETECTED Nasal Parainfluen 3 PCR NOT DETECTED Nasal Parainfluen 4 PCR NOT DETECTED Nasal RSV (PCR) NOT DETECTED Nasal B.pertussis DNA PCR NOT DETECTED Nasal C.pneumoniae (PCR) NOT DETECTED Rudy Human Metapneumo PCR NOT DETECTED Nasal M.pneumoniae (PCR) NOT DETECTED Nasal SARS-CoV-2 (PCR) NOT DETECTED Urine Opiates Screen Ur Buprenorphine Scrn Ur Oxycodone Screen Urine Methadone Screen Ur Barbiturates Screen Ur Tricyclics Screen Ur Phencyclidine Scrn Ur Amphetamine Screen U Methamphetamines Scrn U Benzodiazepines Scrn Urine Cocaine Screen U Cannabinoids Screen Ur Drug Screen Comment Ethyl Alcohol < 10.0 08/20/23 05:32 WBC RBC Hgb Hct MCV MCH MCHC RDW Plt Count MPV Neut # (Auto) Lymph # (Auto) Centre # (Auto) Eos # (Auto) Baso # (Auto) Absolute Nucleated RBC Nucleated RBC % Sodium Potassium Chloride Carbon Dioxide Anion Gap BUN Creatinine Estimated GFR (MDRD) Glucose Calcium Total Bilirubin AST ALT Alkaline Phosphatase Total Protein Albumin Globulin Albumin/Globulin Ratio Lipase Urine Color YELLOW Urine Clarity CLEAR Urine pH 8.5 H Ur Specific [place] 1.020 Urine Protein NEGATIVE Urine Glucose (UA) NEGATIVE Urine Ketones 15 H Urine Occult Blood NEGATIVE Urine Nitrite NEGATIVE Urine Bilirubin NEGATIVE Urine Urobilinogen 0.2 (NORMAL) Ur Leukocyte Esterase NEGATIVE Ur Microscopic Review NOT INDICATED Urine Culture Comments NOT INDICATED Urine HCG, Qual NEGATIVE Nasal Adenovirus (PCR) Nasal B. parapertussis DNA (PCR) Nasal Coronavir 229E PCR Nasal Coronavir HKU1 PCR Nasal Coronavir NL63 PCR Nasal Coronavir OC43 PCR Nasal Enterovir/Rhinovir PCR Nasal Influenza B PCR Nasal Influenza A PCR Nasal Parainfluen 1 PCR Nasal Parainfluen 2 PCR Nasal Parainfluen 3 PCR Nasal Parainfluen 4 PCR Nasal RSV (PCR) Nasal B.pertussis DNA PCR Nasal C.pneumoniae (PCR) Rudy Human Metapneumo PCR Nasal M.pneumoniae (PCR) Nasal SARS-CoV-2 (PCR) Urine Opiates Screen NEGATIVE Ur Buprenorphine Scrn NEGATIVE Ur Oxycodone Screen NEGATIVE Urine Methadone Screen NEGATIVE Ur Barbiturates Screen NEGATIVE Ur Tricyclics Screen NEGATIVE Ur Phencyclidine Scrn NEGATIVE Ur Amphetamine Screen NEGATIVE U Methamphetamines Scrn NEGATIVE U Benzodiazepines Scrn NEGATIVE Urine Cocaine Screen POSITIVE H U Cannabinoids Screen NEGATIVE Ur Drug Screen Comment CUTOFF CONC BELOW: Ethyl Alcohol PD Medical Decision Making - ED course Complexity details: reviewed results, re-evaluated patient, d/w patient, d/w family ED course: Pt presenting for evaluation after several days of vomiting and period of being unresponsive this morning. She is awake on arrival but frequent retching. No focal deficits noted. EKG non ischemic. CBC, chemistries, UA, ETOH, UDS reviewed. K 3.4. Continued vomiting and abdominal pain after zofran and droperidol. Pt unsure of what happened this morning. Pt has had history of ED visits for opiate withdrawal in past but has weaned off suboxone weeks ago. UDS positive for cocaine only. CT head and abdomen/pelvis ordered to evaluate for causes of continued vomiting. CT abdomen / pelvis with mild colitis. Pt feeling better after reglan. CT head with hyperdensity noted in cerebellum. No priors for comparison. Calcification vs hemorrhage with recommendation for repeat CT in 4 hrs. Repeat ordered and pt signed out to Dr. Dover at shift change. Departure - Departure Clinical Impression: Nausea & vomiting, Abnormal CT scan, head, Ileitis Condition: Stable Forms: PCP List
[2023-08-20 05:50] LABS: CLARITY,URINE CLEAR (CLEAR)
[2023-08-20 05:51] LABS: HCG UR QUAL NEGATIVE
[2023-08-20] MEDS ORDERED: iohexoL-300 100 ML VIAL ONE (05:55)
[2023-08-20 05:56] LABS: AMPHETAMINE SCREEN,URINE NEGATIVE (NEGATIVE); BARBITURATE SCREEN,UR NEGATIVE (NEGATIVE); BENZODIAZEPINES SCREEN, URINE NEGATIVE (NEGATIVE); BUPRENORPHINE SCREEN, URINE NEGATIVE (NEGATIVE); COCAINE SCREEN URINE POSITIVE (NEGATIVE); METHADONE SCREEN, URINE NEGATIVE (NEGATIVE); METHAMPHETAMINES SCREEN, URINE NEGATIVE (NEGATIVE); OPIATE SCREEN, URINE NEGATIVE (NEGATIVE); OXYCODONE SCREEN, URINE NEGATIVE (NEGATIVE); THC CANNABINOID SCREEN, URINE NEGATIVE (NEGATIVE); TRICYCLIC ANTIDEPRESSANT,URINE NEGATIVE (NEGATIVE)
[2023-08-20] MEDS: iohexoL-300 100 ML VIAL IVP ONE (06:30)
[2023-08-20] MEDS: POTASSIUM BICARB 25 MEQ TABLET PO ONE (07:28)
--- NOTE | 2023-08-20 07:32 | CT Report ---
PROCEDURE: Head WO INDICATIONS: syncope vs fall; difficult to wake TECHNIQUE: Noncontrast 4.5 mm thick angled axial sections acquired from the foramen magnum to the vertex. For r adiation dose reduction, the following was used: automated exposure control, adjustment of mA and/or kV according to patient size. COMPARISON: None. FINDINGS: Image quality: Excellent. CSF spaces: Basal cisterns are patent. No extra-axial fluid collections. Ventricles are normal in size and shape. Brain: No midline shift. The anterior right cerebellum there is a subtle hyperdensity measuring appr oximately 6 mm in length, potentially representing a vague calcification or small intraparenchymal he morrhage. No associated vasogenic edema. No other focal potential lesions are seen. Cardona-white matter interface is normal. Skull and face: Calvarium and visualized facial bones are intact, without suspicious lesions. Sinuses: Visualized sinuses and mastoids are clear. IMPRESSION: Vague 6 mm hyperdensity in the right anterior cerebellum, possibly representing a vague calcification or faint parenchymal hemorrhage. Recommend 4 hour follow-up CT to check for any changes. Consider MRI with and without contrast for fu rther evaluation Findings are concordant with preliminary interpretation provided by [facility]. Reviewed by: Saran Puckett MD on 08/20/2023 7:31 AM PDT Approved by: Saran Puckett MD on 08/20/2023 7:31 AM PDT Station ID: [id number]
--- NOTE | 2023-08-20 08:29 | XRAY Report ---
PROCEDURE: Chest 1V INDICATIONS: cough TECHNIQUE: One view of the chest was acquired. COMPARISON: 06/15/2021. FINDINGS: Surgical changes and devices: None. Lungs and pleura: No pleural effusions or pneumothorax. Lungs are clear. Mediastinum: Mediastinal contours appear normal. Heart size is normal. Bones and chest wall: No suspicious bony lesions. Overlying soft tissues appear unremarkable. IMPRESSION: No acute cardiopulmonary process. Findings are concordant with preliminary interpretation provided by [facility]. Reviewed by: Will Javed MD on 08/20/2023 8:28 AM PDT Approved by: iWll Javed MD on 08/20/2023 8:28 AM PDT Station ID: [id number]
--- NOTE | 2023-08-20 08:36 | CT Report ---
PROCEDURE: Abdomen/Pelvis W INDICATIONS: lower abd pain/vomiting CONTRAST: 100 ML OMNI 300 TECHNIQUE: After the administration of intravenous contrast, a CT scan of the abdomen and pelvis was performed. Images were recorded and evaluated at appropriate window settings. Reformats: coronal and sagittal. F or radiation dose reduction, the following was used: automated exposure control, adjustment of mA and /or kV according to patient size. COMPARISON: Pelvic ultrasound dated 04/03/2018 and ultrasound of abdomen dated 02/15/2016. FINDINGS: Image quality: Diagnostic. Lower chest: Unremarkable. Liver: No solid mass. Gallbladder: Surgically absent. Biliary tree: No intrahepatic or extrahepatic dilation, accounting for age. Spleen: No splenomegaly. Pancreas: No pancreatic ductal dilation. Adrenals: No adrenal nodule. Kidneys and ureters: No hydronephrosis. No renal cystic lesion which requires follow up. No solid mas s. Stomach, bowel and peritoneum: There is no bowel obstruction. No gastric or small bowel wall thickeni ng. Appendix is no definitively identified. No gross bowel wall thickening or mesenteric fat strandin g in right lower quadrant abdomen is noted. There is suggestion of mild diffuse colonic wall thickeni ng concerning for low-grade colitis. Mild fecal stasis in the colon is also seen. No abscess collecti on. No free fluid of free air. Lymph nodes: No central or retroperitoneal adenopathy. Vessels: No infrarenal aortic aneurysm. Patent portal vein. PELVIS Reproductive organs: Hysterectomy. Bladder: No abnormal wall thickening, accounting for underdistention. Pelvic lymph nodes: No pelvic adenopathy by size criteria. Bones: No aggressive osseous abnormality. Other: No significant ventral or inguinal hernia. IMPRESSION: 1. Finding is suggestive of mild colitis. Appendix is not definitively seen. No secondary CT signs of acute appendicitis. Mild constipation. No bowel obstruction. No free fluid of free air. 2. Prior appendectomy and hysterectomy. Findings are concordant with preliminary interpretation provided by [facility]. Reviewed by: Will Javed MD on 08/20/2023 8:34 AM PDT Approved by: Will Javed MD on 08/20/2023 8:34 AM PDT Station ID: [id number]
--- NOTE | 2023-08-20 11:10 | CT Report ---
PROCEDURE: Head WO INDICATIONS: abnormal CT head - hyperdensity in cerebellum TECHNIQUE: Noncontrast 4.5 mm thick angled axial sections acquired from the foramen magnum to the vertex. For r adiation dose reduction, the following was used: automated exposure control, adjustment of mA and/or kV according to patient size. COMPARISON: CT head 08/20/2023 FINDINGS: Image quality: Excellent. CSF spaces: Basal cisterns are patent. No extra-axial fluid collections. Ventricles are normal in size and shape. Brain: No midline shift. Small focus of hyperdensity within the left cerebellar. Cardona-white matter interface is normal. Skull and face: Calvarium and visualized facial bones are intact, without suspicious lesions. Sinuses: Visualized sinuses and mastoids are clear. IMPRESSION: Focus of increased density within the right cerebellum remains present although decreased in size. Co ntinued interval monitoring is recommended as hemorrhage cannot be excluded. Reviewed by: Huma Tubbs MD on 08/20/2023 11:09 AM PDT Approved by: Huma Tubbs MD on 08/20/2023 11:09 AM PDT Station ID: [id number]
[2023-08-20] MEDS: lisinopriL 5 MG TABLET PO STA (11:46)
[2023-08-20] MEDS: LABETALOL 20 MG/4 ML SYRINGE IVP STA ×4 (13:03→19:39)
[2023-08-20] MEDS ORDERED: GADOTERATE MEGLUMINE 10 MMOL/20 ML VIAL ONE (14:41)
--- NOTE | 2023-08-20 16:21 | MRI Report ---
PROCEDURE: Brain W/WO INDICATIONS: cerebellar bleed CONTRAST: 16.4ml Clariscan TECHNIQUE: Noncontrast axial T1 spin echo, axial T2 fast spin echo, sagittal and axial FLAIR, coronal T2 fast sp in echo, axial gradient echo, axial diffusion and ADC through the brain. After the administration of contrast, axial and coronal T1 spin echo with fat saturation through the brain. COMPARISON: CT head 08/20/2023 FINDINGS: Image quality: Excellent. CSF spaces: Basal cisterns are patent. No extra-axial fluid collections. Ventricles are normal in size and shape. Brain: No midline shift. The region corresponding to the area of right cerebellar hyperdensity on C T demonstrates hypointensity on gradient sequence suggestive of hemosiderin deposition. The area demo nstrates punctate area of enhancement as well as heterogeneous signal on T1 and T2. It measures appro ximately 4 mm. The brainstem appears normal. Diffusion-weighted images demonstrate no acute ischemic insults. No chronic ischemic insults. Normal intravascular flow voids are present. Skull and face: Calvarial marrow is normal in signal. Orbits appear normal. Sinuses: Sinuses demonstrate mild scattered areas of mucosal thickening most prominent in the maxill raghu sinuses. IMPRESSION: Small heterogeneous focus within the right cerebellum demonstrating hypointensity on gradient sequenc e corresponding to CT abnormality. Appearance is most suggestive of small focus of hemorrhage within a cavernous angioma versus small AVM. Neurosurgical consultation is recommended. Reviewed by: Huma Tubbs MD on 08/20/2023 4:20 PM PDT Approved by: Huma Tubbs MD on 08/20/2023 4:20 PM PDT Station ID: [id number]
--- NOTE | 2023-08-20 16:29 | ED Physician Documentation ---
ED Addendum - Addendum Addendum: 08/20/23 16:25 CT head #2: Impression: Focus of increased density within the right cerebellum remains present although decreased in size. Continued interval monitoring is recommended as hemorrhage cannot be excluded. Brain MRI with and without: Impression: Small heterogeneous focus within the right cerebellum demonstrating hypodensity on gradient sequence corresponding to CT abnormality. Appearance is most suggestive of a small focus of hemorrhage within a cavernous angioma versus a small AVM. Neurosurgical consultation is recommended. 08/20/23 16:26 08/20/23 [id number] Georgina Dasilva is left in my care here at shift change with a pending follow-up CT scan of the head. Her initial head CT showed a small focus of what appears to be hemorrhage in the cerebellum. The patient herself was using cocaine last night and her pressure was elevated on arrival to the emergency department. 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 The recommendation was for a follow-up MR with and without contrast and this has now been completed. I have discussed the case with the neurosurgeon Dr. Youngblood at the [facility] and they have recommended the MRI be done. They have recommended control the patient's blood pressure to a systolic less than 160. The patient did have good luck with the use of 20 mg of labetalol and a second dose has been administered. 08/20/23 18:01 At shift change care is turned over to Dr. Beal with consultation with neurosurgery at [facility] pending.
[2023-08-20] MEDS: GADOTERATE MEGLUMINE 10 MMOL/20 ML VIAL IVP ONE (17:59)
--- NOTE | 2023-08-20 19:44 | ED Physician Documentation ---
ED Addendum - Addendum Addendum: 08/20/23 19:[address] Alegria, stroke neurologist at [facility]. She is reviewing the case and will call me back. 08/20/23 20:22 Dr. Alegria called me back, she does not feel there is any need for transfer. Patient be safely discharged at this juncture as she has been here for over 16 hours without the need for specific intervention in the bleed is quite small. Patient counseled not to use cocaine and she is understanding. She has also not been compliant with her lisinopril and she will restart it. She would like a prescription for labetalol pending follow-up with her primary care physician. [facility] neurosurgery did tell me she should have a follow-up with neurosurge ry but it does not have to be with them and recommended PCP follow-up for referral for same. Disposition: Discharge time Condition: Stable Diagnoses: 1. Altered mental status 2. Cocaine abuse 3. Small cerebellar hemorrhage
[2023-08-20 20:02] VITALS: BP 145/84
[2023-08-20 20:31] VITALS: O2SAT 98
== END 2023-08-20 20:29 | disposition home or self-care (01) ==
LOC: EDUNIT# → ED 03:43
DX: I61.4 Nontraumatic intracerebral hemorrhage in cerebellum (principal); R11.2 Nausea with vomiting, unspecified; K52.9 Noninfective gastroenteritis and colitis, unspecified; I10 Essential (primary) hypertension; F14.10 Cocaine abuse, uncomplicated; T46.4X6A Underdosing of angiotensin-converting-enzyme inhibitors, initial encounter; Z79.899 Other long term (current) drug therapy
CPT/HCPCS: 36415; 70450; 70553; 71045; 74177; 80053; 80306; 81003; 81025; 82077; 83690; 85025; 87633; 93005; 96361; 96374; 96375; 96376; 99284; 99285; A9270; A9575; J2765; Q9967; 81001; 87086

== ENCOUNTER 2023-10-19 11:52 | Emergency (ER) | payer MEDICAID, OTHER ==
--- NOTE | 2023-10-19 12:25 | ED Physician Documentation ---
History of Present Illness - Stated complaint Stated Complaint: GLF,SWOLLEN LIP - Chief complaint Chief Complaint: Trauma Hd/Nk - Additonal information Additional information: 42-year-old female with history of recent intracranial hemorrhage, hypertension, asthma presents emergency department for syncopal episode that happened around 2 AM last night. Patient says that she did very stressful day yesterday she got up to go to the bathroom got dizzy and lost consciousness hitting her upper left lip on the ground now with swelling. She is worried because she has had history of intracranial hemorrhage in the past and wanted do a head CT for further evaluation. No focal neurological deficits no head pain no nausea or vomiting no dizziness. 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, Hysterectomy HEENT:  Derm: Other - Present Medications Home Medications: Ambulatory Orders Medication Instructions Recorded Confirmed Ondansetron Odt [Zofran] 4 mg TL Q6H PRN #10 tablet 04/23/23 08/20/23 Sertraline [Zoloft] 50 mg PO DAILY 04/23/23 08/20/23 Quetiapine Fumarate [Seroquel] 50 mg PO DAILY #5 tablet 05/18/23 08/20/23 hydrOXYzine PAMOATE [Vistaril] 25 mg PO Q6H PRN #20 cap 05/18/23 08/20/23 Labetalol [Trandate] 100 mg PO BID #60 tablet 08/20/23 Lisinopril [Zestril] 1 tab PO DAILY 08/20/23 08/20/23 Ondansetron Odt [Zofran] 4 mg TL Q6H PRN #10 tablet 08/20/23 - Allergies Allergies/Adverse Reactions: Allergies Allergy/AdvReac Type Severity Reaction Status Date / Time ibuprofen Allergy stomach Verified 10/19/23 12:13 ulcers mussels Allergy Anaphylaxis Verified 10/19/23 12:13 tramadol Allergy Itching Verified 10/19/23 12:13 adhesive tape AdvReac Rash Verified 10/19/23 12:13 hydrocodone bitartrate * AdvReac Itching Verified 10/19/23 12:13 [From Vicodin] salmon oil AdvReac Rash Verified 10/19/23 12:13 - Social History Does the pt smoke?: No Smoking Status: Never smoker Does the pt drink ETOH?: Yes Does the pt have substance abuse?: Yes - Immunizations Immunizations are current?: No Immunizations: TDAP current <10years - POLST Patient has POLST: No PD ED PE NORMAL - Vitals Vital signs reviewed: Yes - General General: Alert and oriented X 3, No acute distress, Well developed/nourished - HEENT HEENT: PERRL, Other (right upper lip hematoma, no laceration or open wounds) - Neck Neck: No bony TTP, C-Spine cleared by NEXUS criteria - Cardiac Cardiac: RRR, No murmur - Respiratory Respiratory: No respiratory distress - Abdomen Abdomen: Normal bowel sounds, Soft - Back Back: No CVA TTP - Derm Derm: Normal color, Warm and dry, No rash - Extremities Extremities: No deformity, No tenderness to palpate, No edema, No calf tenderness / cord - Neuro Neuro: Alert and oriented X 3, sampling expert 2-12 intact, No motor deficit, No sensory deficit, Normal speech Eye Opening: Spontaneous Motor: Obeys Commands Verbal: Oriented GCS Score: 15 - Psych Psych: Normal mood, Normal affect Results - Vitals Vitals: Vital Signs - 24 hr 10/19/23 10/19/23 12:07 14:20 Temperature 36.9 C Heart Rate 83 88 Respiratory 16 16 Rate Blood Pressure 129/91 H 139/92 H O2 Saturation 99 98 Oxygen O2 Source Room air - EKG (time done) 1253 EKG releavant findings:: EKG personally interpreted by author of this note. Relevant findings are: Rate: Rate (enter#) (87) Rhythm: NSR [place]: Normal Intervals: Normal RI QRS: Normal Ischemia: Normal ST segments Computer interpretation: Agree with computer - Labs Labs: Laboratory Tests 10/19/23 10/19/23 10/19/23 12:40 12:41 13:00 WBC 13.1 H RBC 4.91 Hgb 14.5 Hct 43.3 MCV 88.2 MCH 29.5 MCHC 33.5 RDW 13.7 Plt Count 409 MPV 9.7 Neut # (Auto) 9.4 H Lymph # (Auto) 2.4 [place] # (Auto) 1.1 H Eos # (Auto) 0.1 Baso # (Auto) 0.1 Absolute Nucleated RBC 0.00 Nucleated RBC % 0.0 Sodium 136 Potassium 3.9 Chloride 104 Carbon Dioxide 25 Anion Gap 7.0 BUN 12 Creatinine 0.9 Estimated GFR (MDRD) 69 L Glucose 96 Calcium 9.8 Total Bilirubin 0.7 AST 11 ALT 9 L Alkaline Phosphatase 39 L Total Protein 7.4 Albumin 4.6 Globulin 2.8 Albumin/Globulin Ratio 1.6 Urine HCG, Qual NEGATIVE - Rads (name of study) Head CT without Relevant Findings:: Final report received, EMP independent interpretation of test, Other (Very subtle area of increased density present in the medial right cerebellum which corresponds to the abnormality previously present) PD Medical Decision Making - ED course ED course: 42-year-old female presents emergency department for possible syncopal episode in the [facility]. Patient says this happened to her before upon my chart review patient was here about 4 to 6 weeks ago as she was found down she has known history of opioid use was 5 days ago and is currently residing in a [facility] right now. Labs are complete for further evaluation white count 13.1 no anemia no electrolyte abnormalities normal kidney function negative test. EKG is unremarkable, normal sinus rhythm. CT head without contrast was complete for further evaluation and findings appear to be similar to previous ER visit. CT reveals very subtle area of increased density present in the medial right cerebellum which corresponds to the abnormality previously present, consider [place] as hemangioma or sequela of trauma. Patient has a follow-up appointment with [facility] neurology at the end of this month she is told to call them and let them know about today's ER visit she is given strict ER return precautions at this point in time I do believe that patient is safe for discharge she had no syncopal episodes or dizziness while she was here she is able to ambulate with any difficulty no focal neurological deficits all questions answered patient safe for discharge. Departure - Departure Disposition: 01 Home, Self Care Clinical Impression: Contusion, lip, Ground-level fall, Abnormal head CT Instructions: Falls Prevent Exercise, Falls Prevent Prepare What Do Comments: Thank you for trusting us with your care we have completed labs and we are not seeing any acute abnormalities contributing to what caused you to pass out last night. We completed a CT of your head and it appears that you do have chronic findings see below for the radiology read it appears that there is a very subtle area of increased density present in the medial right cerebellum which was seen on your previous head CT. Please follow-up with [facility] for further evaluation Please come back to the emergency departmentIf you have any worsening symptoms or change in your neurological status. EXAM: [id number] CT/HEADWO ([id number]) PROCEDURE: Head WO INDICATIONS: syncope, head injury, hx of recent intracranial TECHNIQUE: Noncontrast 4.5 mm thick angled axial sections acquired from the foramen magnum to the vertex. For radiation dose reduction, the following was used: automated exposure control, adjustment of mA and/or kV according to patient size. COMPARISON: CT head x3 dated 08/20/2023, brain MRI with and without contrast dated 08/20/2023. FINDINGS: Image quality: Excellent. CSF spaces: Basal cisterns are patent. No extra-axial fluid collections. Ventricles are normal in size and shape. Brain: No midline shift. No intracranial masses. Very minimal subtle sequelae of previous small focus of acute hemorrhage in the right cerebellum, similar in size but decreased in conspicuity. R eference axial image 7 of series 2. Consider possible cavernous cavernous hemangioma in this location versus minimal sequelae of a traumatic event at the time of the recent previous studies. Cardona-white matter interface is normal. Skull and face: Calvarium and visualized facial bones are intact, without suspicious lesions. Sinuses: Visualized sinuses and mastoids are clear. IMPRESSION: 1. There is a very subtle area of increased density present in the medial right cerebellum which corresponds to the abnormality previously present. Consider cavernous hemangioma or sequelae of trauma. 2. No acute findings. No current significant sequelae of acute trauma Reviewed by: Saran Puckett MD on 10/19/2023 1:03 PM PDT Approved by: Saran Puckett MD on 10/19/2023 1:03 PM PDT Station ID: [id number] Forms: PCP List Discharge Date/Time: 10/19/23 14:21
[2023-10-19 12:48] LABS: BASOPHILS # (AUTO) 0.1 10^3/uL (0.0-0.1); BASOPHILS % (AUTO) 0.6 %; EOSINOPHILS # (AUTO) 0.1 10^3/uL (0.0-0.7); EOSINOPHILS % (AUTO) 0.8 %; HCT - HEMATOCRIT 43.3 % (37.0-47.0); HGB - HEMOGLOBIN 14.5 g/dL (12.0-16.0); LYMPHOCYTES # (AUTO) 2.4 10^3/uL (1.5-3.5); LYMPHOCYTES % (AUTO) 18.5 %; MEAN CORPUSCULAR HEMOGLOBIN 29.5 pg (27.0-31.0); MEAN CORPUSCULAR HGB CONC 33.5 g/dL (32.0-36.0); MEAN CORPUSCULAR VOLUME 88.2 fL (81.0-99.0); MEAN PLATELET VOLUME 9.7 fL (7.9-10.8); MONOCYTES # (AUTO) 1.1 10^3/uL (0.0-1.0); MONOCYTES % (AUTO) 8.2 %; NEUTROPHILS # (AUTO) 9.4 10^3/uL (1.5-6.6); NEUTROPHILS % (AUTO) 71.4 %; PLT - PLATELET COUNT 409 10^3/uL (130-450); RED BLOOD COUNT 4.91 10^6/uL (4.20-5.40); RED CELL DISTRIBUTION WIDTH 13.7 % (12.0-15.0); WHITE BLOOD COUNT 13.1 x10^3/uL (4.8-10.8)
--- NOTE | 2023-10-19 13:05 | CT Report ---
PROCEDURE: Head WO INDICATIONS: syncope, head injury, hx of recent intracranial TECHNIQUE: Noncontrast 4.5 mm thick angled axial sections acquired from the foramen magnum to the vertex. For r adiation dose reduction, the following was used: automated exposure control, adjustment of mA and/or kV according to patient size. COMPARISON: CT head x3 dated 08/20/2023, brain MRI with and without contrast dated 08/20/2023. FINDINGS: Image quality: Excellent. CSF spaces: Basal cisterns are patent. No extra-axial fluid collections. Ventricles are normal in size and shape. Brain: No midline shift. No intracranial masses. Very minimal subtle sequelae of previous small foc us of acute hemorrhage in the right cerebellum, similar in size but decreased in conspicuity. Referen ce axial image 7 of series 2. Consider possible cavernous cavernous hemangioma in this location versu s minimal sequelae of a traumatic event at the time of the recent previous studies. Cardona-white matter interface is normal. Skull and face: Calvarium and visualized facial bones are intact, without suspicious lesions. Sinuses: Visualized sinuses and mastoids are clear. IMPRESSION: 1. There is a very subtle area of increased density present in the medial right cerebellum which rehan esponds to the abnormality previously present. Consider cavernous hemangioma or sequelae of trauma. 2. No acute findings. No current significant sequelae of acute trauma Reviewed by: Saran Puckett MD on 10/19/2023 1:03 PM PDT Approved by: Saran Puckett MD on 10/19/2023 1:03 PM PDT Station ID: [id number]
[2023-10-19 13:11] LABS: HCG UR QUAL NEGATIVE
[2023-10-19 14:03] LABS: ALBUMIN 4.6 g/dL (3.2-5.5); ALBUMIN/GLOBULIN RATIO 1.6 (1.0-2.2); BILIRUBIN,TOTAL 0.7 mg/dL (0.2-1.0); CALCIUM 9.8 mg/dL (8.5-10.3); CREATININE 0.9 mg/dL (0.6-1.3); POTASSIUM 3.9 mmol/L (3.5-4.5); TOTAL PROTEIN 7.4 g/dL (6.4-8.9)
[2023-10-19 14:22] VITALS: BP 139/92; O2SAT 98
== END 2023-10-19 14:21 | disposition home or self-care (01) ==
LOC: ED 11:52
DX: R55 Syncope and collapse (principal); R90.89 Other abnormal findings on diagnostic imaging of central nervous system; S00.531A Contusion of lip, initial encounter; W18.39XA Other fall on same level, initial encounter; Y92.091 Bathroom in other non-institutional residence as the place of occurrence of the external cause; Z59.01 Sheltered homelessness; Z86.79 Personal history of other diseases of the circulatory system
CPT/HCPCS: 36415; 80053; 81025; 85025; 87637; 93005; 99283; 99284